=== PATIENT | male | born 1955 | race Caucasian/White ===

== ENCOUNTER 2024-05-10 18:30 | Outpatient (CLI) | payer MEDICARE, MEDICAID, SELFPAY ==
[2024-05-10 20:33] LABS: Basophils # 0.1 K/mm3 (0-0.2); Basophils % 0.8 % (0.1-2.0); Chloride 103 mmol/L (98-107); Eosinophils # 0.4 K/mm3 (0.0-0.4); Eosinophils % 4.8 % (0.1-12.0); Hematocrit 46.8 % (42.0-52.0); Hemoglobin 14.7 g/dL (14.1-18.0); Lymphocytes # 2.8 K/mm3 (0.7-4.5); Lymphocytes % 34.5 % (10-50); Mean Corpuscular HGB Conc 31.3 g/dL (31.8-35.4); Mean Corpuscular Hemoglobin 30.9 pg (27.0-31.2); Mean Corpuscular Volume 98.7 fl (80-94); Mean Platelet Volume 8.5 fl (7.4-10.4); Monocytes # 0.7 K/mm3 (0.1-1.0); Monocytes % 8.6 % (1.7-9.3); Neutrophils # 4.1 K/mm3 (1.8-7.8); Neutrophils % 51.2 % (37.0-80.0); Platelet Count 238 K/mm3 (142-424); Potassium 4.5 mmoL/L (3.5-5.1); Red Blood Count 4.74 M/mm3 (4.60-6.20); Red Cell Distribution Width 14.5 % (11.5-17.5); Sodium 141 mmol/L (136-145)
[2024-05-10 20:35] LABS: Blood Urea Nitrogen 29 mg/dl (9-20); Estimated Glomerular Filt Rate 60 ml/min (>60); GFR (African American) 73 ML/MIN (>60)
[2024-05-10 20:36] LABS: Anion Gap 8.5 mEq/L (5-15); Calcium 8.8 mg/dl (8.4-10.2); Carbon Dioxide 34 mmol/L (22.0-30.0); Glucose 62 mg/dl (74-100)
== END 2024-05-10 23:59 | disposition home or self-care (01) ==
LOC: LAB.DROPOF 18:40
PROVIDERS: PCP Internal Medicine Adolescent Medicine; Visit Provider Nurse Practitioner Family
DX: J96.11 Chronic respiratory failure with hypoxia (principal)
CPT/HCPCS: 80048; 85025

== ENCOUNTER 2024-06-25 01:22 | Emergency (ER) | payer MEDICARE, MEDICAID, SELFPAY ==
[2024-06-25] VITALS (7 sets, daily range): BP systolic 105–146; BP diastolic 44–84; PULSE 59–73; RESP 16; TEMP 36.5–36.6; O2SAT 98–100; BMI 27.1
--- NOTE | 2024-06-25 01:26 | CT_ITS ---
PROCEDURE INFORMATION: Exam: CT Cervical Spine Without Contrast Exam date and time: 06/25/2024 2:03 AM Age: 69 years old Clinical indication: Injury or trauma; Fall; Additional info: Fall struck head TECHNIQUE: Imaging protocol: Computed tomography of the cervical spine without contrast. Radiation optimization: All CT scans at this facility use at least one of these dose optimization techniques: automated exposure control; mA and/or kV adjustment per patient size (includes targeted exams where dose is matched to clinical indication); or iterative reconstruction. COMPARISON: CT HEAD/BRAIN WO CON 06/25/2024 2:01 AM FINDINGS: Bones: Chronic decreased disc space height demonstrated at the C5-C7 levels. Facet hypertrophy [id number] at C2-C4 Lungs: Lung apices are normal. Soft tissues: Unremarkable. IMPRESSION: No visible acute fracture/malalignment.
--- NOTE | 2024-06-25 01:26 | CT_ITS ---
PROCEDURE INFORMATION: Exam: CT Head Without Contrast Exam date and time: 06/25/2024 2:01 AM Age: 69 years old Clinical indication: Injury or trauma; Fall; Additional info: Fall, struck head TECHNIQUE: Imaging protocol: Computed tomography of the head without contrast. Radiation optimization: All CT scans at this facility use at least one of these dose optimization techniques: automated exposure control; mA and/or kV adjustment per patient size (includes targeted exams where dose is matched to clinical indication); or iterative reconstruction. COMPARISON: No relevant prior studies available. FINDINGS: Brain: Old lacunar pattern infarct present right basal ganglia and right caudate head. Old Left basal ganglia lacunar pattern infarct Cerebral ventricles: Periventricular hypoattenuation. Likely chronic microvascular ischemic demyelination. Paranasal sinuses: Mild diffuse thickening of the right maxillary sinus mucosa. Mastoid air cells: Visualized mastoid air cells are well aerated. Orbital cavities: Bilateral lens replacement Bones: Unremarkable. No acute fracture. Soft tissues: Unremarkable. IMPRESSION: No visible acute intracranial abnormality
--- NOTE | 2024-06-25 01:27 | HMH.EDGENADL ---
Discharge Plan Disposition Patient Disposition: Home, Self-Care Condition: Good Prescriptions Prescriptions: No Action furosemide 40 mg tablet 40 mg PO DAILY ipratropium-albuterol 0.5 mg-3 mg(2.5 mg base)/3 mL solution for nebulization 3 ml INHALATION TIDP PRN (Reason: soa) ondansetron HCl 4 mg tablet 4 mg PO Q8HP PRN (Reason: Nausea And Vomiting) famotidine 40 mg tablet 40 mg PO DAILY olanzapine 10 mg tablet 10 mg PO DAILY oxcarbazepine 300 mg tablet 300 mg PO BID divalproex 500 mg tablet,delayed release (DR/EC) 500 mg PO BID potassium chloride 20 mEq tablet,ER particles/crystals 20 meq PO DAILY benztropine 2 mg tablet 2 mg PO BID metoprolol succinate 25 mg tablet extended release 24 hr 25 mg PO DAILY polyethylene glycol 3350 17 gram/dose powder 17 g PO DAILY albuterol sulfate 90 mcg/actuation HFA aerosol inhaler 1 - 2 puff INHALATION Q6HP PRN (Reason: soa) fluticasone propionate 50 mcg/actuation spray,suspension 1 spray INTRANASAL DAILY loratadine 10 mg tablet 10 mg PO DAILY melatonin 5 mg tablet 5 mg PO HS Activity Restrictions/Add. Instructions Additional Instructions/Restrictions: You were evaluated in the ER and are appropriate for discharge at this time. Make an appointment with primary care doctor for reevaluation in a few days. Continue all home medications as previously prescribed. Return to the ER with new, worsening, or otherwise concerning symptoms Clinical Impressions Clinical Impression: Fall Print Language Print Language: Gambian Discharge ED Provider: Joe Coates General Adult HPI General Chief complaint: Fall Stated complaint: Fall Time Seen by Provider: 06/25/24 01:25 Mode of Arrival: EMS Source of Information: Patient and EMS Limitations: No Limitations Description of Symptoms (Recalled from ER Triage Doc. by RN): Pt to ED via EMS with c/o falling out of bed at [facility]. Pt reports left eye pain and right side pain. No blood thinners, no LOC, PERRLA. History of Present Illness HPI narrative: 69-year-old male presents from [facility] with EMS after rolling out of bed striking his face reportedly on the nightstand, however patient states he struck it on the ground. Patient denies losing consciousness, he does not take any blood thinners. Patient reports no neck pain. He states the left side of his head hurts where he hit it, however he has no other complaints at this time. He states his vision is at baseline, he previously had cataract removal. He does states that his left eye feels uncomfortable, especially just above the eye where it hit. Patient is on his home oxygen saturating well, ROS otherwise negative. C-collar in place from EMS. Reports no numbness, tingling, or weakness. Related Data Home Medications ?Medication ?Instructions ?Recorded ?Confirmed albuterol sulfate 90 mcg/actuation 1 - 2 puff inhalation Q6HP PRN soa 06/25/24 06/25/24 aerosol inhaler benztropine 2 mg tablet 2 mg PO BID 06/25/24 06/25/24 divalproex 500 mg tablet,delayed 500 mg PO BID 06/25/24 06/25/24 release famotidine 40 mg tablet 40 mg PO DAILY 06/25/24 06/25/24 fluticasone propionate 50 1 spray intranasal DAILY 06/25/24 06/25/24 mcg/actuation nasal spray,suspension furosemide 40 mg tablet 40 mg PO DAILY 06/25/24 06/25/24 ipratropium 0.5 mg-albuterol 3 mg 3 ml inhalation TIDP PRN soa 06/25/24 06/25/24 (2.5 mg base)/3 mL nebulization soln loratadine 10 mg tablet 10 mg PO DAILY 06/25/24 06/25/24 melatonin 5 mg tablet 5 mg PO HS 06/25/24 06/25/24 metoprolol succinate 25 mg 25 mg PO DAILY 06/25/24 06/25/24 tablet,extended release 24 hr olanzapine 10 mg tablet 10 mg PO DAILY 06/25/24 06/25/24 ondansetron HCl 4 mg tablet 4 mg PO Q8HP PRN Nausea And 06/25/24 06/25/24 Vomiting oxcarbazepine 300 mg tablet 300 mg PO BID 06/25/24 06/25/24 polyethylene glycol 3350 17 17 g PO DAILY 06/25/24 06/25/24 gram/dose oral powder potassium chloride 20 mEq 20 meq PO DAILY 06/25/24 06/25/24 tablet,extended release(part/cryst) Allergies Allergy/AdvReac Type Severity Reaction Status Date / Time No Known Allergies Allergy Verified 06/25/24 01:20 [facility] Disclaimer: The information contained in this section may have been updated after the patient was seen, as this information can be updated by other users. Social History Smoking Status: Former smoker alcohol intake: never current occupational status: other Travel in the last 8 weeks: None ROS Obtained: Yes All systems reviewed & no additional complaints except as documented Positive ROS per HPI Physical Exam General General appearance: alert and in no apparent distress Head Head exam: normocephalic and other (Tenderness on left eyebrow and left forehead without hematoma, abrasion, laceration, or other findings of injury) Eye Eye exam: Present PERRL, EOMI and other (Patient reports vision at baseline in both eyes, no peripheral visual deficits, fluorescein stain without findings of ulcer, abrasion, negative Betty sign, no findings of open globe, right eye pressure 12 mmHg, left eye pressure 12 mmHg) ENT ENT exam: Present mucous membranes moist Neck Neck exam: Present normal inspection and other (C-collar in place); Absent tenderness (No midline C-spine tenderness) Chest Chest inspection: Present symmetric chest wall rise; Absent tenderness Respiratory Respiratory exam: Present normal lung sounds bilaterally; Absent respiratory distress, wheezes or stridor Cardiovascular Cardiovascular exam: Present regular rate and normal rhythm Abdominal Exam Abdominal exam: Present soft; Absent distention or tenderness Extremities Exam Extremities exam: Present full ROM and edema (+1 peripheral edema in bilateral lower extremities) Neurological Exam Neurological exam: Present alert, oriented X3 and CN II-XII intact; Absent motor sensory deficit Psychiatric Psychiatric exam: Present normal affect and normal mood Skin Skin exam: Present warm and dry Medical Decision Making Medical Records Screening: Per USPSTF and CDC recommendations, given the prevalence of disease in our region, it is our hospital?s policy to screen for HIV and viral Hepatitis for all patients aged 18 and over and those with ongoing risk factors. [place] Inquiry Pt receiving controlled substance: No Vital Signs: 06/25/24 01:15 06/25/24 01:31 06/25/24 02:25 Temperature 97.7 F Temperature Source Oral Pulse Rate 64 67 Pulse Rate [Left Radial] 68 Respiratory Rate 16 Blood Pressure 134/70 123/76 Blood Pressure [Right Arm] 140/65 Blood Pressure Mean [Right Arm] 90 Blood Pressure Source [Right Arm] Automatic Cuff Blood Pressure Position [Right Arm] Supine 02 Sat by Pulse Oximetry 100 98 98 Oxygen Delivery Method Nasal Cannula Oxygen Flow Rate (LPM) 4 06/25/24 03:00 06/25/24 03:31 06/25/24 04:00 Temperature Temperature Source Pulse Rate 65 59 L 65 Pulse Rate [Left Radial] Respiratory Rate Blood Pressure 133/76 105/44 L 113/59 L Blood Pressure [Right Arm] Blood Pressure Mean [Right Arm] Blood Pressure Source [Right Arm] Blood Pressure Position [Right Arm] 02 Sat by Pulse Oximetry 99 100 99 Oxygen Delivery Method Oxygen Flow Rate (LPM) Orders (Tests/Meds): ED MEDICATIONS Discontinued Medications Generic Name Dose Route Start Last Admin Trade Name Freq PRN Reason Stop Dose Admin Fluorescein Sodium 1 mg 06/25/24 01:26 06/25/24 01:31 Fluorescein Sodium 1mg Strip OP 06/25/24 01:27 1 mg ONCE ONE Administration Tetracaine HCl 0 ml 06/25/24 01:26 06/25/24 01:30 Tetracaine 0.5% Opth Veronica 15ml OP 06/25/24 01:27 1 ml ONCE ONE Administration ORDERS Category Date Time Status CT cervical spine wo con Stat Cat Scan 06/25/24 01:[address] head/brain wo con Stat Cat Scan 06/25/24 01:26 Completed Medical Decision Narrative: In summary, this 69-year-old male with history of COPD, hypertension, CHF, schizophrenia, all of which are comorbidities of his current condition and increases overall morbidity presents to the emergency department today with fall out of bed striking his head, no loss of consciousness, no blood thinners. On initial evaluation patient is hemodynamically stable, afebrile, GCS 15, no focal neurologic deficits, and only abnormality identified on exam is mild tenderness to palpation of the left eyebrow and left forehead without hematoma, abrasion, laceration, or other findings of injury. No cervical spine tenderness however c-collar is in place, thorough examination of the left eye is benign and reassuring. Differential diagnosis includes but is not limited to skull fracture, intracranial bleed, C-spine injury, these cannot be ruled out with any scoring tools due to patient's age. I had also considered the possibility of corneal abrasion, open globe since patient was complaining of left eye pain, however on exam it appears to be left eyebrow pain and his left eye exam is benign. Based on these concerns, I ordered CT imaging head, C-spine. CT imaging personally interpreted does not demonstrate acute traumatic injury, there are degenerative changes of the C-spine. See radiology reads for final interpretations. On reassessment, patient continues to be stable, he is resting comfortably. C-collar was cleared. He is appropriate for discharge. Patient was given instructions on symptomatic management, follow up instructions, and return precautions for the emergency department. All instructions were also conveyed to nursing facility. Patient indicated understanding and was discharged in stable condition. Critical Care Critical Care Time Critical Care Time: No
[2024-06-25] MEDS: TETRACAINE 0.5% OPTH SOL 15ML OP (01:30)
[2024-06-25] MEDS: FLUORESCEIN SODIUM 1MG STRIP 1 MG OP (01:31)
--- NOTE | 2024-06-25 02:05 | PC.NURSE ---
pt back from ct scans
--- NOTE | 2024-06-25 04:54 | PC.NURSE ---
Report called to Jailyn alston [place]
== END 2024-06-25 05:10 | disposition home or self-care (01) ==
PROVIDERS: Emergency Provider Emergency Medicine; PCP Internal Medicine Adolescent Medicine
DX: H57.11 Ocular pain, right eye (principal); R51.9 Headache, unspecified; R10.31 Right lower quadrant pain; W06.XXXA Fall from bed, initial encounter; Y93.89 Activity, other specified; Y92.122 Bedroom in nursing home as the place of occurrence of the external cause
CPT/HCPCS: 70450; 72125; 99284

== ENCOUNTER 2024-09-03 13:10 | Outpatient (CLI) | payer MEDICARE, MEDICAID, SELFPAY ==
[2024-09-03 13:20] LABS: Microscopic, Urine URINE MICROSCOPIC (MICROSCOPIC)
[2024-09-03 13:26] LABS: Basophils # 0.1 K/mm3 (0-0.2); Basophils % 0.7 % (0.1-2.0); Eosinophils # 0.5 K/mm3 (0.0-0.4); Eosinophils % 6.2 % (0.1-12.0); Hematocrit 43.4 % (42.0-52.0); Hemoglobin 14.4 g/dL (14.1-18.0); Lymphocytes # 2.1 K/mm3 (0.7-4.5); Lymphocytes % 28.7 % (10-50); Mean Corpuscular HGB Conc 33.2 g/dL (31.8-35.4); Mean Corpuscular Hemoglobin 30.5 pg (27.0-31.2); Mean Corpuscular Volume 91.9 fl (80-94); Mean Platelet Volume 9.4 fl (7.4-10.4); Monocytes # 0.7 K/mm3 (0.1-1.0); Monocytes % 9.3 % (1.7-9.3); Neutrophils % 54.7 % (37.0-80.0); Platelet Count 231 K/mm3 (142-424); Red Blood Count 4.72 M/mm3 (4.60-6.20); Red Cell Distribution Width 13.1 % (11.5-17.5); White Blood Count 7.3 K/mm3 (4.8-10.8)
[2024-09-03 13:51] LABS: Appearance,Urine CLEAR (Clear); Bilirubin,Urine Negative (Negative); Blood, Urine TRACE-I (Negative); Color,Urine YELLOW (Yellow); Glucose,Urine (UA) Negative (Negative); Ketones,Urine Negative (Negative); Leukocyte Esterase,Urine Negative (Negative); Nitrate,Urine Negative (Negative); Protein,Urine Negative (Negative); Specific Gravity, Urine 1.015 (1.005-1.030); Urobilinogen,Urine 0.2 EU/dl (0.2)
[2024-09-03 14:08] LABS: Anion Gap 9.7 mEq/L (5-15); Blood Urea Nitrogen 21 mg/dl (9-20); Calcium 9.2 mg/dl (8.4-10.2); Carbon Dioxide 31 mmol/L (22.0-30.0); Chloride 100 mmol/L (98-107); Estimated Glomerular Filt Rate 66 ml/min (>60); GFR (African American) 80 ML/MIN (>60); Glucose 116 mg/dl (74-100); Magnesium 1.6 mg/dl (1.6-2.3); Potassium 5.7 mmoL/L (3.5-5.1); Sodium 135 mmol/L (136-145)
[2024-09-03 14:28] LABS: Bacteria,Urine Trace /lpf; RBC,Urine Occasional #/hpf (0-3)
== END 2024-09-03 23:59 | disposition home or self-care (01) ==
LOC: LAB 13:11
PROVIDERS: Nurse Practitioner Family; PCP Internal Medicine Adolescent Medicine; Visit Provider Internal Medicine Adolescent Medicine
DX: R26.81 Unsteadiness on feet (principal); M54.50 Low back pain, unspecified
CPT/HCPCS: 80048; 81001; 83735; 85025

== ENCOUNTER 2024-10-26 04:50 | Inpatient (IN) | payer MEDICARE, MEDICAID, SELFPAY ==
[2024-10-26] VITALS (13 sets, daily range): BP systolic 125–151; BP diastolic 75–91; PULSE 83–109; RESP 16–22; TEMP 36.6–37.8; O2SAT 94–99; BMI 26.3
--- NOTE | 2024-10-26 04:41 | CT_ITS ---
PROCEDURE INFORMATION: Exam: CT Cervical Spine Without Contrast Exam date and time: 10/26/2024 5:27 AM Age: 69 years old Clinical indication: Injury or trauma; Fall TECHNIQUE: Imaging protocol: Computed tomography of the cervical spine without contrast. Radiation optimization: All CT scans at this facility use at least one of these dose optimization techniques: automated exposure control; mA and/or kV adjustment per patient size (includes targeted exams where dose is matched to clinical indication); or iterative reconstruction. COMPARISON: CT CERVICAL SPINE WO CON 06/25/2024 2:03 AM FINDINGS: Bones: Diffuse cervical spondylosis is noted. Hypertrophic changes of the facet present bilaterally. Discs/Spinal canal/Neural foramina: Narrowing of multiple intervertebral disc spaces are seen. Moderate neural foraminal narrowing is also noted. Lungs: Lung apices are normal. Vasculature: No obvious traumatic injury is seen. Soft tissues: Unremarkable. IMPRESSION: 1. No evidence of acute traumatic injury. 2. Diffuse cervical spondylosis.
--- NOTE | 2024-10-26 04:41 | CT_ITS ---
PROCEDURE INFORMATION: Exam: CT Head Without Contrast Exam date and time: 10/26/2024 5:25 AM Age: 69 years old Clinical indication: Injury or trauma; Fall TECHNIQUE: Imaging protocol: Computed tomography of the head without contrast. Radiation optimization: All CT scans at this facility use at least one of these dose optimization techniques: automated exposure control; mA and/or kV adjustment per patient size (includes targeted exams where dose is matched to clinical indication); or iterative reconstruction. COMPARISON: CT HEAD/BRAIN WO CON 06/25/2024 2:01 AM FINDINGS: Brain: There is diffuse prominence of the cerebral sulci, cisterns, and ventricles consistent with atrophy. No intra or extra-axial fluid collections are noted. No mass or mass effect is seen. Periventricular white matter hypoattenuation is seen consistent with chronic small vessel disease. Cerebral ventricles: No ventriculomegaly. Paranasal sinuses: Visualized sinuses are unremarkable. No fluid levels. Mastoid air cells: Visualized mastoid air cells are well aerated. Bones: Unremarkable. No acute fracture. Soft tissues: Unremarkable. IMPRESSION: No acute process noted.
--- NOTE | 2024-10-26 04:49 | XR_ITS ---
PROCEDURE INFORMATION: Exam: XR Left Hip Exam date and time: 10/26/2024 5:11 AM Age: 69 years old Clinical indication: Hip pain; Left hip; Additional info: Fall pain but full rom TECHNIQUE: Imaging protocol: Radiologic exam of the left hip. Views: 2 or 3 views hip with pelvis when performed. COMPARISON: No relevant prior studies available. FINDINGS: Bones/joints: No acute fracture or malalignment. No worrisome lytic or blastic osseous lesion. No appreciable cortical erosion or periosteal reaction. Mild left hip osteoarthritis. Soft tissues: No appreciable radiopaque foreign body or gas. IMPRESSION: No acute fracture or malaligment.
--- NOTE | 2024-10-26 04:49 | XR_ITS ---
PROCEDURE INFORMATION: Exam: XR Chest Exam date and time: 10/26/2024 5:11 AM Age: 69 years old Clinical indication: Shortness of breath; Additional info: Cov+ light headed fall TECHNIQUE: Imaging protocol: Radiologic exam of the chest. Views: 1 view. COMPARISON: CT CERVICAL SPINE WO CON 06/25/2024 2:03 AM FINDINGS: Lungs: Mild subsegmental atelectasis versus scarring in the left perihilar lung, right mid and lower lungs. No focal consolidation. Pleural spaces: No pneumothorax or pleural effusion. Heart/Mediastinum: Apparent mild cardiomegaly, accentuated by leftward rotation. Mediastinal contours unremarkable. Bones/joints: Unremarkable. IMPRESSION: 1. Scattered scarring and/or subsegmental atelectasis. No focal consolidation. 2. Mild cardiomegaly.
--- NOTE | 2024-10-26 04:49 | XR_ITS ---
PROCEDURE INFORMATION: Exam: XR Left Knee Exam date and time: 10/26/2024 5:11 AM Age: 69 years old Clinical indication: Pain; Knee; Left; Additional info: Fall pain but full rom TECHNIQUE: Imaging protocol: Radiologic exam of the left knee. Views: 3 views. COMPARISON: No relevant prior studies available. FINDINGS: Bones/joints: No acute fracture or malalignment. No worrisome lytic or blastic osseous lesion. No appreciable cortical erosion or periosteal reaction. Joint spaces are preserved. Soft tissues: Moderate medial knee soft tissue swelling. No appreciable gas. A 3 mm linear foreign body projects in the posteromedial soft tissues of the knee. IMPRESSION: 1. No acute fracture or malaligment. 2. Moderate medial knee soft tissue swelling. No appreciable gas. 3. A 3 mm linear foreign body projects in the posteromedial soft tissues of the knee.
--- NOTE | 2024-10-26 04:56 | HMH.EDGENADL ---
Discharge Plan Disposition Patient Disposition: Admitted Chief Complaint: Fall Prescriptions Prescriptions: No Action furosemide 40 mg tablet 40 mg PO DAILY ipratropium-albuterol 0.5 mg-3 mg(2.5 mg base)/3 mL solution for nebulization 3 ml INHALATION TIDP PRN (Reason: soa) ondansetron HCl 4 mg tablet 4 mg PO Q8HP PRN (Reason: Nausea And Vomiting) famotidine 40 mg tablet 40 mg PO DAILY olanzapine 10 mg tablet 10 mg PO DAILY oxcarbazepine 300 mg tablet 300 mg PO BID divalproex 500 mg tablet,delayed release (DR/EC) 500 mg PO BID potassium chloride 20 mEq tablet,ER particles/crystals 20 meq PO DAILY benztropine 2 mg tablet 2 mg PO BID metoprolol succinate 25 mg tablet extended release 24 hr 25 mg PO DAILY polyethylene glycol 3350 17 gram/dose powder 17 g PO DAILY albuterol sulfate 90 mcg/actuation HFA aerosol inhaler 1 - 2 puff INHALATION Q6HP PRN (Reason: soa) fluticasone propionate 50 mcg/actuation spray,suspension 1 spray INTRANASAL DAILY loratadine 10 mg tablet 10 mg PO DAILY melatonin 5 mg tablet 5 mg PO HS Referrals Follow up/Referrals: Provider,Referral, MD [Primary Care Provider] - See instructions Clinical Impressions Clinical Impression: Fall, Pre-syncope, COVID-19, ADAM (acute kidney injury) Print Language Print Language: Dutch Discharge ED Provider: Joe Coates General Adult HPI General Chief complaint: Fall Stated complaint: Fall Time Seen by Provider: 10/26/24 04:55 Mode of Arrival: EMS Source of Information: Patient and EMS Limitations: Physical Limitations Description of Symptoms (Recalled from ER Triage Doc. by RN): PT ARRIVED VIA EMS FROM [facility] FOR C/O L SIDED HIP/KNEE PAIN S/P FALL. PT REPORTS ATTEMPTING TO GET OUT OF BED WHEN PT BECAME DIZZY AND FELL. DENIES HITTING HIS HEAD, - LOC, SKIN INTACT, NO OBVIOUS DEFORMITY NOTED. History of Present Illness HPI narrative: 69-year-old male with history of schizoaffective disorder, COPD, multiple falls presents to the ER from [facility] via EMS for complaints of left hip and left knee pain after fall. Patient reports he was sitting on the side of the bed when he became lightheaded and fell. He denies hitting his head, no loss of consciousness, did not fully syncopize. Facility reports he was positive for COVID yesterday, patient reports no chest pain, no difficulty breathing, he only complains of left knee and hip pain though he was found laying on his right side. Patient denies any chest pain before the fall or any other associated symptoms. He states he often gets lightheaded and dizzy when he tries to get up too fast. He denies any fevers or chills, states he has not had any significant cough or congestion. Review of records from long term demonstrates he has advanced COPD and he reports he wears 2 to 3 L nasal cannula at baseline. No headache, neck pain, back pain, abdominal pain, numbness, tingling, weakness, nausea, vomiting, or other associated symptoms. Related Data Home Medications ?Medication ?Instructions ?Recorded ?Confirmed albuterol sulfate 90 mcg/actuation 1 - 2 puff inhalation Q6HP PRN soa 06/25/24 06/25/24 aerosol inhaler benztropine 2 mg tablet 2 mg PO BID 06/25/24 06/25/24 divalproex 500 mg tablet,delayed 500 mg PO BID 06/25/24 06/25/24 release famotidine 40 mg tablet 40 mg PO DAILY 06/25/24 06/25/24 fluticasone propionate 50 1 spray intranasal DAILY 06/25/24 06/25/24 mcg/actuation nasal spray,suspension furosemide 40 mg tablet 40 mg PO DAILY 06/25/24 06/25/24 ipratropium 0.5 mg-albuterol 3 mg 3 ml inhalation TIDP PRN soa 06/25/24 06/25/24 (2.5 mg base)/3 mL nebulization soln loratadine 10 mg tablet 10 mg PO DAILY 06/25/24 06/25/24 melatonin 5 mg tablet 5 mg PO HS 06/25/24 06/25/24 metoprolol succinate 25 mg 25 mg PO DAILY 06/25/24 06/25/24 tablet,extended release 24 hr olanzapine 10 mg tablet 10 mg PO DAILY 06/25/24 06/25/24 ondansetron HCl 4 mg tablet 4 mg PO Q8HP PRN Nausea And 06/25/24 06/25/24 Vomiting oxcarbazepine 300 mg tablet 300 mg PO BID 06/25/24 06/25/24 polyethylene glycol 3350 17 17 g PO DAILY 06/25/24 06/25/24 gram/dose oral powder potassium chloride 20 mEq 20 meq PO DAILY 06/25/24 06/25/24 tablet,extended release(part/cryst) Allergies Allergy/AdvReac Type Severity Reaction Status Date / Time No Known Allergies Allergy Verified 06/25/24 01:20 [facility] Disclaimer: The information contained in this section may have been updated after the patient was seen, as this information can be updated by other users. Social History Smoking Status: Former smoker alcohol intake: never current occupational status: other Travel in the last 8 weeks: None ROS Obtained: Yes Systems reviewed as appropriate & no additional complaints except as documented per HPI Physical Exam General General appearance: alert and in no apparent distress Head Head exam: atraumatic and normocephalic Eye Eye exam: Present PERRL and EOMI ENT ENT exam: Present mucous membranes moist Neck Neck exam: Present normal inspection, full ROM and other (C-collar applied after arrival in the ER); Absent tenderness Chest Chest inspection: Present symmetric chest wall rise; Absent tenderness Respiratory Respiratory exam: Present normal lung sounds bilaterally; Absent respiratory distress, wheezes or stridor Cardiovascular Cardiovascular exam: Present regular rate and normal rhythm Abdominal Exam Abdominal exam: Present soft; Absent distention, tenderness, guarding or rebound Extremities Exam Extremities exam: Present full ROM, tenderness (Mild tenderness to palpation of the left hip, left knee) and other (Mild ecchymosis on the left knee but no tenderness, range of motion full, no deformity, neurovascularly intact throughout; pelvis stable ); Absent edema, joint swelling or calf tenderness Back Exam Back exam: Absent tenderness Neurological Exam Neurological exam: Present alert, oriented X3 and CN II-XII intact; Absent motor sensory deficit Psychiatric Psychiatric exam: Present normal affect and normal mood Skin Skin exam: Present warm and dry Medical Decision Making Medical Records Medical records reviewed: Yes I reviewed the patient's medical records. Screening: Per USPSTF and CDC recommendations, given the prevalence of disease in our region, it is our hospital?s policy to screen for HIV and viral Hepatitis for all patients aged 18 and over and those with ongoing risk factors. MR Comment: Patient had labs in September which I reviewed, he had hyperkalemia at that time with potassium 5.7. He had unremarkable CBC and UA at that time [facility] Inquiry Pt receiving controlled substance: No Vital Signs: 10/26/24 04:49 10/26/24 05:06 Temperature 98.7 F Temperature Source Oral Pulse Rate 89 Pulse Rate [Apical] 97 H Respiratory Rate 22 Blood Pressure 125/86 Blood Pressure [Right Arm] 131/86 Blood Pressure Mean [Right Arm] 101 02 Sat by Pulse Oximetry 98 99 Oxygen Delivery Method Nasal Cannula Nasal Cannula Oxygen Flow Rate (LPM) 3 3 Lab Data Lab Results 10/26/24 05:04: WBC 11.3 H, RBC 4.77, Hgb 14.5, Hct 44.2, MCV 92.7, MCH 30.4, MCHC 32.8, RDW 14.2, Plt Count 219, MPV 9.7, Neut % (Auto) 75.5, Lymph % (Auto) 8.9 L, [place] % (Auto) 13.4 H, Eos % (Auto) 1.4, Baso % (Auto) 0.4, Neut # (Auto) 8.5 H, Lymph # (Auto) 1.0, [place] # (Auto) 1.5 H, Eos # (Auto) 0.2, Baso # (Auto) 0.1, Sodium 141, Potassium 4.1, Chloride 97 L, Carbon Dioxide 35 H, Anion Gap 13.1, BUN 25 H, Creatinine 1.40 H, Estimated Creat Clear 60, Estimated GFR 50 L, Est GFR ( Amer) 61, Glucose 109 H, Calcium 9.2, Total Bilirubin 0.6, AST 24, ALT 18, Alkaline Phosphatase 79, Total Protein 7.8, Albumin 4.6, Globulin 3.2, Albumin/Globulin Ratio 1.4 10/26/24 05:10: VBG pH 7.42 H, VBG pCO2 47.8, VBG pO2 52.3 H, VBG HCO3 30.6 H, VBG Total CO2 32.1 H, VBG O2 Saturation 86.8 H, VBG Base Excess 6.2 H, VBG Lactic Acid 1.5 10/26/24 05:04 10/26/24 05:04 Orders (Tests/Meds): ED MEDICATIONS Discontinued Medications Generic Name Dose Route Start Last Admin Trade Name Freq PRN Reason Stop Dose Admin Lactated Ringer's 1,000 mls @ 999 mls/hr 10/26/24 04:52 10/26/24 04:57 Lactated Ringer's 1000 Ml Bag IV 10/26/24 05:52 999 mls/hr .Q1H1M ONE Administration ORDERS Category Date Time Status CT cervical spine wo con Stat Cat Scan 10/26/24 04:[address] head/brain wo con Stat Cat Scan 10/26/24 04:41 Completed CXR --portable [XR chest portable] Stat Exams 10/26/24 04:49 Taken Hip XR left minimum 2 views [XR hip LT 2-3V w/pelvis] Exams 10/26/24 04:49 Taken Stat Knee XR left 3 views [XR knee LT 3V] Stat Exams 10/26/24 04:49 Taken CBC w/Auto Diff [Complete Blood Count Auto Diff] Stat Lab 10/26/24 05:04 Completed CMP [Comprehensive Metabolic Panel] Stat Lab 10/26/24 05:04 Completed VBG [Venous Blood Gas] Stat RT 10/26/24 05:10 Completed Medical Decision Narrative: In summary, this 69-year-old male presents to the emergency department today with concerns of low mechanism of energy fall preceded by lightheadedness. On initial evaluation patient is hemodynamically stable, afebrile, saturating in the upper 90s on his home oxygen, exam notable for slight ecchymosis over the left knee without swelling, mild tenderness, also mild tenderness of left hip, however patient has full range of motion of both of these joints, he has no tenderness of the neck or spine, no tenderness of the chest or abdomen, no other complaints or evidence of injury. Neurologically intact, cardiopulmonary exam reassuring. Differential diagnosis includes but is not limited to intracranial bleed, skull fracture, C-spine fracture cannot be ruled out by Nexus or Ivorian criteria, also considered fracture or dislocation, with patient's lightheadedness I considered pneumonia, hypercarbia, arrhythmia, electrolyte abnormality, orthostatic hypotension, among others. Previous labs have demonstrated electrolyte abnormalities and prerenal azotemia. Based on these concerns, I ordered serum labs, cardiac workup, chest x-ray, CT imaging of the head and neck, x-ray imaging of left lower extremity. ECG personally interpreted demonstrates normal sinus rhythm, rate 89, normal axis, normal VT and QTc, no STEMI. Patient received IV fluids for treatment. Labs personally reviewed demonstrate mild leukocytosis WBC 11.3, no anemia, WBC is likely elevated due to patient having COVID, VBG with pH 7.42, no evidence of hypercarbia, VBG lactic normal at 1.5, CMP with no actionable electrolyte abnormalities, patient does have evidence of new kidney dysfunction with BUN 25, creatinine 1.4, patient has previously had evidence of prerenal azotemia but has baseline creatinine is 1.1, his BUN to creatinine ratio today is more concerning for intrarenal dysfunction, he is already receiving IV fluids. Chest x-ray personally interpreted demonstrates evidence of COPD, possible right lower/middle lobe changes which are likely related to his known COVID. I personally interpreted hip/pelvis and knee x-ray as well and do not appreciate evidence of acute osseous injury. See radiology reads for final interpretations. CT head personally turbid it does not demonstrate acute intracranial abnormality, CT C-spine is without acute traumatic injury. See radiology reads for final interpretations. C-collar cleared by me. No midline pain or tenderness, no neurodeficits. Based on my personal interpretation of the radiology studies, I contacted the hospitalist for admission for ADAM. We discussed the patient's findings clinically and on imaging as well as his lab results. Patient was graciously excepted to the hospitalist service for admission and admitted in stable condition. Critical Care Critical Care Time Critical Care Time: No
[2024-10-26] MEDS: LACTATED RINGERS 1000ML 1,000 ML 999 ML IV (04:57)
--- NOTE | 2024-10-26 05:07 | ECG_ITS ---
APPROVED REPORT Exam: Resting ECG HR:89 bpm ECG Measurements Heart Rate 89 AXES ME 189 P 81 QRSd 82 QRS 81 QT 336 T 86 QTc 383 Conclusion SINUS RHYTHM NORMAL ECG Electronically signed by : GUERRERO QUINN, 10/26/2024 06:46:12
--- NOTE | 2024-10-26 05:10 | PC.NURSE ---
respiratory contacted and made aware of VBG that has been sent to the lab.
--- NOTE | 2024-10-26 05:10 | PC.NURSE ---
pt placed in c-collar per provider during intial assesment, orthostatic VS to be done once C-spine is clear per CT scans.
[2024-10-26 05:14] LABS: Lactate Venous 1.5 mmol/L (0.4-2.0); VBG Base Excess 6.2 mmol/L (-2.4-2.3); VBG HCO3 30.6 mmol/L (23-30); VBG Oxygen Saturation 86.8 % (50-70); VBG PCO2 47.8 mmol/L (35-51); VBG PH 7.42 mmol/L (7.31-7.41); VBG PO2 52.3 mmol/L (28-40); VBG Total CO2 32.1 mmol/L (23-27)
[2024-10-26 05:14] LABS: Basophils # 0.1 K/mm3 (0-0.2); Basophils % 0.4 % (0.1-2.0); Eosinophils # 0.2 K/mm3 (0.0-0.4); Eosinophils % 1.4 % (0.1-12.0); Hematocrit 44.2 % (42.0-52.0); Hemoglobin 14.5 g/dL (14.1-18.0); Lymphocytes % 8.9 % (10-50); Mean Corpuscular HGB Conc 32.8 g/dL (31.8-35.4); Mean Corpuscular Hemoglobin 30.4 pg (27.0-31.2); Mean Corpuscular Volume 92.7 fl (80-94); Mean Platelet Volume 9.7 fl (7.4-10.4); Monocytes # 1.5 K/mm3 (0.1-1.0); Monocytes % 13.4 % (1.7-9.3); Neutrophils # 8.5 K/mm3 (1.8-7.8); Neutrophils % 75.5 % (37.0-80.0); Platelet Count 219 K/mm3 (142-424); Red Blood Count 4.77 M/mm3 (4.60-6.20); Red Cell Distribution Width 14.2 % (11.5-17.5); White Blood Count 11.3 K/mm3 (4.8-10.8)
[2024-10-26 05:20] LABS: Albumin Level 4.6 g/dl (3.5-5.0); Chloride 97 mmol/L (98-107); Potassium 4.1 mmoL/L (3.5-5.1); Sodium 141 mmol/L (136-145)
[2024-10-26 05:23] LABS: Alanine Aminotransferase 18 U/L (12-78); Albumin/Globulin Ratio 1.4 (1.1-1.8); Alkaline Phosphatase 79 U/L (38-126); Anion Gap 13.1 mEq/L (5-15); Aspartate Amino Transferase 24 U/L (17-59); Bilirubin,Total 0.6 mg/dl (0.2-1.3); Blood Urea Nitrogen 25 mg/dl (9-20); Calcium 9.2 mg/dl (8.4-10.2); Carbon Dioxide 35 mmol/L (22.0-30.0); Creatinine Clearance Estimated 60 mL/min (50-200); Estimated Glomerular Filt Rate 50 ml/min (>60); GFR (African American) 61 ML/MIN (>60); Globulin 3.2 g/dL (1.3-3.2); Glucose 109 mg/dl (74-100); Total Protein,Serum 7.8 g/dl (6.3-8.2)
--- NOTE | 2024-10-26 05:31 | PC.NURSE ---
pt returned from CT scan.
--- NOTE | 2024-10-26 05:34 | PC.NURSE ---
C-Collar removed by provider. CMS intact.
--- NOTE | 2024-10-26 06:37 | PC.NURSE ---
Madelaine will call for report after shift change.
[2024-10-26 06:43] LABS: Coronavirus 19, PCR Not Detected (NotDetected); Influenza A, PCR Not Detected (NotDetected); Influenza B, PCR Not Detected (NotDetected)
--- NOTE | 2024-10-26 07:52 | PC.NURSE ---
arrived by w/c from ED
--- NOTE | 2024-10-26 08:07 | SW/DCPLANNER ---
Addendum entered by Tiff Miller 10/28/24 10:38: I have updated Moni carrillo/ Grand [facility]omin that this patient will return today. Addendum entered by Tiff Miller 10/26/24 11:11: I have updated Moni carrillo/ Grand Momin that this patient will return today. Original Note: This patient currently resides at [facility] level of care. I will continue to update Moni carrillo/ Grand Momin during patient's hospital admission. Discharge date is unknown at this time.
[2024-10-26] MEDS: LACTATED RINGERS 1000ML 1,000 ML 50 ML IV (08:29)
--- NOTE | 2024-10-26 09:39 | P.CONPHA_ITS ---
Pharmacy Intervention Comments: MEDICATION RECONCILIATION COMPLETE USING MAR FROM [facility].
--- NOTE | 2024-10-26 09:39 | HMH.PHAINT1 ---
Pharmacy Intervention Comments: MEDICATION RECONCILIATION COMPLETE USING MAR FROM [facility].
[2024-10-26 09:52] LABS: Thyroid Stimulating Hormone 0.35 uIU/mL (0.465-4.68)
--- NOTE | 2024-10-26 10:17 | HMH.OTEV ---
OT Inpatient Evaluation Rehab OT IP Evaluation Start: 10/26/24 07:36 Freq: ONCE Status: Active Protocol: Document 10/26/24 10:12 [facility] (Rec: 10/26/24 10:17 [facility] [id number]) Rehab OT IP Assessment Subjective History Pt oriented x 2 on arrival. Pt agreeable to engage in therapy evaluation. Pt admitted on 10/26/24 due to a fall at [facility]. History and physical: 69-year-old male with history of schizoaffective disorder, COPD, multiple falls presents to the ER from [facility] via EMS for complaints of left hip and left knee pain after fall. Patient reports he was sitting on the side of the bed when he became lightheaded and fell . He denies hitting his head, no loss of consciousness, did not fully syncopize. Facility reports he was positive for COVID yesterday, patient reports no chest pain, no difficulty breathing, he only complains of left knee and hip pain though he was found laying on his right side . Patient denies any chest pain before the fall or any other associated symptoms. He states he often gets lightheaded and dizzy when he tries to get up too fast. He denies any fevers or chills, states he has not had any significant cough or congestion. Review of records from [facility] demonstrates he has advanced COPD and he reports he wears 2 to 3 L nasal cannula at baseline. No headache, neck pain, back pain, abdominal pain, numbness, tingling, weakness, nausea, vomiting, or other associated symptoms Subjective I am not doing good right now . Pt reports prior to being in the hospital, pt was living at [facility]. Pt claims normally he is independent with dressing, bathing, and feeding. However , he is dependent on staff for completion of IADLs. He normally uses a wheelchair for functional transfers but claims to be independent to transfer to and from wheelchair. Pt appeared to be slightly confused at times therefore information provided may not be trustworthy. Objective Patient Orientation Person,Place,Birthday Right Upper Extremity Gross ROM Min Limitation <25% Left Upper Extremity Gross ROM Min Limitation <25% Shoulder ROM Limitations Muscle Weakness Elbow ROM Limitations Muscle Weakness Wrist Limitations of Range of Motion Muscle Weakness Chair Transfer Ability Moderate x 1 (50% assist) Chair Transfer Technique Stand Pivot Rehab OT IP prob,goals,plan Problems Date of Evaluation: 10/26/24 OT IP Problems Bed Mobility,Transfers,Balance ,Self care,Safety Rehab Potential Rehab Potential Good Equipment Needs Assistive Devices Rolling / Wheeled Walker Plan OT intervention Plan Bed Mobility,Transfers,Balance ,Self care,Safety,Therapeutic Exercise OT Plan Frequency Daily Duration LOS Discharge Goals Bed Mobility Ability Standby Assistance Sit to Stand Chair Transfer Ability Minimal x 1 (25% assist) Chair Transfer Ability Minimal x 1 (25% assist) Chair Transfer Technique Sit to/from Ambulatory Chair Transfer Assistive Devices Rolling Walker Feeding Ability Assist with Tray Set Up Lower Body Dressing Ability Minimal Assistance Upper Body Dressing Ability Standby Assistance Bathing Ability Moderate Assistance Performing Toilet Hygiene Ability Moderate Assistance Overall Commode/Toilet Transfer Ability Minimal Assistance Commode/Toilet Transfer Technique Stand Pivot Discharge Plan OT Discharge Plan Pt will continue to be seen for OT services while at [facility]. Pt can return back to [facility] for termite helper placement once he is medically stable per physician . Eval Complexity Eval Charge Codes 82217 - Moderate Complexity PHYSICIAN CERTIFICATION: I certify the specified therapy services for Devin Pierre are required, authorized, and reviewed every 30 days.
--- NOTE | 2024-10-26 11:10 | HMH.PTEV ---
Physical Therapy Evaluation Rehab PT IP Evaluation Start: 10/26/24 07:36 Freq: ONCE Status: Active Protocol: Document 10/26/24 11:06 [facility] (Rec: 10/26/24 11:10 [facility] [id number]) Subjective/History History History 69-year-old male with history of schizoaffective disorder, COPD, multiple falls presents to the ER from [facility] via EMS for complaints of left hip and left knee pain after fall. Patient reports he was sitting on the side of the bed when he became lightheaded and fell . He denies hitting his head, no loss of consciousness. He reports he generally uses a w/ c for mobility and O2 via NC at 2L/min at all times at baseline. He reports He feels shaky when standing often, but is unsure why. Subjective Subjective He reports no c/o pain at this time and agrees to mobility assessment this am. Rehab PT IP Eval Objective Appearance Patient Behavior Appropriate Patient Orientation Person,Place,Time Difficulty following instructions none Speech Pattern Clear Ambulation Patient Able to Ambulate No Balance Ability to Arise Able, uses arms to help Sitting Balance Steady, safe Standing Balance Unsteady Dynamic Sitting Balance Ability Fair Dynamic Standing Balance Ability Poor Transfers Bed Transfer Ability Supervision/Stand by Chair Transfer Ability Minimal x 1 (25% assist) Sit to Stand Bed Transfer Ability Minimal x 1 (25% assist) Sit to Stand Chair Transfer Ability Minimal x 1 (25% assist) ROM All Extremities PT ROM Status WFL MMT All Extremities PT MMT WFL Rehab PT IP prob,goals,plan Problems Date of Evaluation: 10/26/24 PT IP Problems Transfers,Gait Rehab Potential Rehab Potential Good Plan PT Intervention Plan Transfers,Gait,Therapeutic Exercise Duration LOS Discharge Goals Bed Transfer Ability Independent Sit to Stand Chair Transfer Ability Contact Guard/Hand Hold Discharge Plan PT Discharge Plan Pt is currently most appropriate to return to his prior facility once medically stable for d/c. Skilled inpatient therapy services are indicated to improve transfers in order to aid pt return to [facility]. Eval Complexity Eval Charge Codes 71086 - High Complexity PHYSICIAN CERTIFICATION: I certify the specified therapy services for Devin Pierre are required, authorized, and reviewed every 30 days.
[2024-10-26] MEDS: FAMOTIDINE 20MG TABLET 40 MG PO (11:37)
[2024-10-26 12:15] LABS: Chloride 97 mmol/L (98-107); Sodium 139 mmol/L (136-145)
[2024-10-26 12:19] LABS: Blood Urea Nitrogen 22 mg/dl (9-20); Calcium 9.1 mg/dl (8.4-10.2); Carbon Dioxide 36 mmol/L (22.0-30.0); Creatinine Clearance Estimated 70 mL/min (50-200); Estimated Glomerular Filt Rate 60 ml/min (>60); GFR (African American) 73 ML/MIN (>60); Glucose 106 mg/dl (74-100)
[2024-10-26 12:29] LABS: Microscopic, Urine URINE MICROSCOPIC (MICROSCOPIC)
[2024-10-26 12:32] LABS: Appearance,Urine CLEAR (Clear); Bilirubin,Urine Negative (Negative); Blood, Urine 1+ (Negative); Color,Urine YELLOW (Yellow); Glucose,Urine (UA) Negative (Negative); Ketones,Urine 1+ (Negative); Leukocyte Esterase,Urine Negative (Negative); Nitrate,Urine Negative (Negative); Protein,Urine Negative (Negative); Specific Gravity, Urine 1.015 (1.005-1.030); Urobilinogen,Urine 0.2 EU/dl (0.2)
[2024-10-26 12:47] LABS: Bacteria,Urine Trace /lpf; Squamous Epithelial Cell,Urine Occasional #/hpf (0-5)
[2024-10-26] MEDS: predniSONE 20MG TAB 40 MG PO (15:31)
[2024-10-26] MEDS: AZITHROMYCIN 500 MG in 0.9 % SODIUM CHLORIDE 250 ML 250 MG IV (15:31)
--- NOTE | 2024-10-26 16:35 | PC.NURSE ---
Multiple attempts made at obtaining orthostatics today. Patient is unable to stand still long enough and keep his arm straight for blood pressure reading. aware.
[2024-10-26] MEDS: IPRATROPIUM/ALBUTEROL 3 ML NEB IH ×2 (18:13→23:06)
[2024-10-26] MEDS: BUDESONIDE 0.5MG/2ML NEB 0.5 MG IH (18:13)
--- NOTE | 2024-10-26 18:15 | P.HP_ITS ---
History of Present Illness *History of present illness: Devin Pierre is a 69-year-old male who presents from nursing facility after f eeling dizzy and falling on his left hip, and admitted for the same. He apparently tested positive for COVID-19 at the facility, but negative here. He notes he has been having dyspnea on exertion for the past 2 years which has gradually become worse. He states over the past few months he has not been able to take a few steps without significant increased work of breathing. Denies any cardiac history, has quit smoking many years ago. Case discussed with ED provider and decision was made to admit patient for fall, COPD exacerbation, weakness, ADAM. [facility] Disclaimer: The information contained in this section may have been updated after the patient was seen, as this information can be updated by other users. Medical History (Updated 11/04/24 @ 15:52 by MAXIME Ray) COPD (chronic obstructive pulmonary disease) COPD exacerbation Pancreatitis GERD (gastroesophageal reflux disease) Rhinitis CHF (congestive heart failure) Hypertension Insomnia Bipolar disorder Schizo affective schizophrenia Weakness Fatigue Respiratory failure with hypoxia Social History Smoking Status: Former smoker alcohol intake: never current occupational status: other Travel in the last 8 weeks: None Other Medical History Have you received the Flu Vaccine for this season: No Have you received the Pneumonia Vaccine: No Meds Home Medications and Allergies Home Medications ?Medication ?Instructions ?Recorded ?Confirmed ?Type albuterol sulfate 90 mcg/actuation 2 puff inhalation Q6HP PRN 06/25/24 11/04/24 History aerosol inhaler Shortness Of Breath Or Wheezing divalproex 500 mg tablet,delayed 500 mg PO BID 06/25/24 11/04/24 History release metoprolol succinate 25 mg 25 mg PO DAILY 06/25/24 11/04/24 History tablet,extended release 24 hr oxcarbazepine 300 mg tablet 300 mg PO BID 06/25/24 11/04/24 History polyethylene glycol 3350 17 17 g PO DAILY 06/25/24 11/04/24 History gram/dose oral powder acetaminophen 500 mg tablet 1,000 mg PO Q6HP PRN Fever Or Pain 10/26/24 11/04/24 History aluminum hydrox-magnesium carb 95 30 ml PO Q6HP PRN Indigestion 10/26/24 11/04/24 History mg-358 mg/15 mL oral suspension (Acid Gone Antacid) amantadine HCl 100 mg tablet 100 mg PO BID 10/26/24 11/04/24 History lactulose 10 gram/15 mL oral 20 g PO DAILYP PRN Constipation 10/26/24 11/04/24 History solution olanzapine 15 mg tablet 15 mg PO HS 10/26/24 11/04/24 History potassium chloride 10 mEq 10 meq PO DAILY 10/26/24 11/04/24 History tablet,extended release(part/cryst) fluticasone fur. 200 mcg-umeclid 1 inh inhalation DAILY 30 days #60 10/28/24 11/04/24 Rx 62.5 mcg-vilant 25 mcg ea inhalat.powder (Trelegy Ellipta) buspirone 5 mg tablet 5 mg PO TID 11/04/24 11/04/24 History New Prescriptions to Start Prescriptions: [id number] [Trelegy Ellipta] Conrad Lozada Allergies Allergy/AdvReac Type Severity Reaction Status Date / Time No Known Allergies Allergy Verified 11/04/24 13:50 Exam Data for Last 24 hours Vital signs and Labs for Last 24 Hours: Temp Pulse Resp BP Pulse Ox O2 Del Method O2 Flow Rate 100.0 F H 109 H 20 140/91 H 94 L Nasal Cannula 3 10/26/24 16:00 10/26/24 16:00 10/26/24 16:00 10/26/24 16:00 10/26/24 16:00 10/26/24 17:00 10/26/24 17:00 Laboratory Results - last 24 hr 10/26/24 05:04: WBC 11.3 H, RBC 4.77, Hgb 14.5, Hct 44.2, MCV 92.7, MCH 30.4, MCHC 32.8, RDW 14.2, Plt Count 219, MPV 9.7, Neut % (Auto) 75.5, Lymph % (Auto) 8.9 L, [place] % (Auto) 13.4 H, Eos % (Auto) 1.4, Baso % (Auto) 0.4, Neut # (Auto) 8.5 H, Lymph # (Auto) 1.0, [place] # (Auto) 1.5 H, Eos # (Auto) 0.2, Baso # (Auto) 0.1, Sodium 141, Potassium 4.1, Chloride 97 L, Carbon Dioxide 35 H, Anion Gap 13.1, BUN 25 H, Creatinine 1.40 H, Estimated Creat Clear 60, Estimated GFR 50 L, Est GFR ( Amer) 61, Glucose 109 H, Calcium 9.2, Total Bilirubin 0.6, AST 24, ALT 18, Alkaline Phosphatase 79, Total Protein 7.8, Albumin 4.6, Globulin 3.2, Albumin/Globulin Ratio 1.4, TSH 0.35 L 10/26/24 05:10: VBG pH 7.42 H, VBG pCO2 47.8, VBG pO2 52.3 H, VBG HCO3 30.6 H, VBG Total CO2 32.1 H, VBG O2 Saturation 86.8 H, VBG Base Excess 6.2 H, VBG Lactic Acid 1.5 10/26/24 06:39: SARS-CoV-2 (PCR) Not detected, Influenza A Untype (PCR) Not detected, Influenza Type B (PCR) Not detected 10/26/24 12:00: Sodium 139, Potassium 4.0, Chloride 97 L, Carbon Dioxide 36 H, Anion Gap 10.0, BUN 22 H, Creatinine 1.20, Estimated Creat Clear 70, Estimated GFR 60, Est GFR ( Amer) 73, Glucose 106 H, Calcium 9.1 10/26/24 12:25: Urine Color Yellow, Urine Appearance Clear, Urine pH 8.0, Ur Specific [place] 1.015, Urine Protein Negative, Urine Glucose (UA) Negative, Urine Ketones 1+, Urine Blood 1+ A, Urine Nitrate Negative, Urine Bilirubin Negative, Urine Urobilinogen 0.2, Ur Leukocyte Esterase Negative, Urine RBC 5- 10, Urine WBC None, Ur Squamous Epith Cells Occasional, Urine Bacteria Trace I & O for Last 24 hours: Intake & Output 10/23/24 10/24/24 10/25/24 10/26/24 23:59 23:59 23:59 23:59 Intake Total 240 / 240 Output Total 350 / 350 Balance -110 / -110 Weight 85.729 kg Constitutional Constitutional: no acute distress *Routine HEENT Exam Head: Present normocephalic Eye: Present EOMI and PERRL ENT: Present mucous membranes moist *Routine Neck Exam Neck: Present supple; Absent lymphadenopathy *Routine Respiratory Exam Respiratory: Present wheezes; Absent CTA bilaterally *Routine Cardiovascular Exam Cardiovascular: Present RRR *Routine Abdominal Exam Abdominal: Present soft and normoactive bowel sounds; Absent tenderness *Routine Rectal Exam Rectal:: deferred *Routine Genitalia Exam Genitalia:: deferred *Routine Extremities Exam Extremities: Absent cyanosis, clubbing or edema *Routine Skin Exam Skin: Present warm; Absent rash *Routine Neurological Exam Neurological: Present alert and oriented X3 Assessment and Plan *Assessment and plan (1) COPD (chronic obstructive pulmonary disease): Status: Acute Qualifiers: COPD type: emphysema Emphysema type: unspecified Qualified Code(s): J43.9 - Emphysema, unspecified Category: Medical Code(s): J44.9 - Chronic obstructive pulmonary disease, unspecified Plan Devin Pierre is a 69-year-old male who presents from nursing facility after feeling dizzy and falling on his left hip, and admitted for the same. He apparently tested positive for COVID-19 at the facility, but negative here. He notes he has been having dyspnea on exertion for the past 2 years which has gradually become worse. He states over the past few months he has not been able to take a few steps without significant increased work of breathing. Denies any cardiac history, has quit smoking many years ago. Case discussed with ED provider and decision was made to admit patient for fall, COPD exacerbation, weakness, ADAM. #Fall ? Seems to be associated with dizziness, acute viral syndrome, dehydration, positive orthostatics. ? Hip, knee x-rays did not show acute findings. ? PT/OT consulted, pending final recommendations. #Acute COPD exacerbation ? Started DuoNebs, Pulmicort, steroids. ? VBG reassuring. Baseline 3 L nasal cannula. #Acute viral syndrome #Dehydration #Dizziness #ADAM ? Mini respiratory panel negative here, follow-up with full respiratory panel. ? Positive orthostatics in the ED. ? Initial creatinine 1.4, baseline 1.1. Improved with IV fluids. ? Continue with IV, oral rehydration. ? Repeat orthostatic vitals tomorrow. Full code DVT prophylaxis: Lovenox 40 mg
[2024-10-27] VITALS (9 sets, daily range): BP systolic 120–151; BP diastolic 57–81; PULSE 85–112; RESP 16–19; TEMP 36.5–36.9; O2SAT 90–98; BMI 27.1
[2024-10-27] MEDS: LACTATED RINGERS 1000ML 1,000 ML 50 ML IV ×3 (03:21→20:55)
[2024-10-27 04:48] LABS: Adenovirus,PCR Not Detected (NotDetected); Bordetella Pertussis Not Detected (NotDetected); Chlamydophila Pneumoniae, PCR Not Detected (NotDetected); Coronavirus 19, PCR Not Detected (NotDetected); Coronavirus 229E Not Detected (NotDetected); Coronavirus NL63 Not Detected (NotDetected); Coronavirus OC43 Not Detected (NotDetected); Coronovirus HKU1,PCR Not Detected (NotDetected); Human Metapneumovirus Not Detected (NotDetected); Influenza A, PCR Not Detected (NotDetected); Influenza AH1, 2009 Not Detected (NotDetected); Influenza AH1, PCR Not Detected (NotDetected); Influenza AH3,PCR Not Detected (NotDetected); Influenza B, PCR Not Detected (NotDetected); Mycoplasma Pneumoniae, PCR Not Detected (NotDetected); Parainfluenza 1, PCR Not Detected (NotDetected); Parainfluenza 2, PCR Not Detected (NotDetected); Parainfluenza 3, PCR Not Detected (NotDetected); Parainfluenza 4, PCR Not Detected (NotDetected); Respiratory Syncytial Virus Not Detected (NotDetected); Rhinovirus/Enterovirus Not Detected (NotDetected)
--- NOTE | 2024-10-27 04:55 | PC.NURSE ---
Pt is only alert to self and place at times. Disoriented to time and situation. Patient is a high fall risk as he's not stable on his feet and shakes frequently. Pt stated he's scared to stand. Pt has been going from 3 to 4LNC all shift. Pt gets exerted and anxious. he stated, He thinks he wet the bed then gets worked up and becomes SOB. Plan of care ongoing.
[2024-10-27] MEDS: IPRATROPIUM/ALBUTEROL 3 ML NEB IH ×2 (06:00→10:37)
[2024-10-27] MEDS: BUDESONIDE 0.5MG/2ML NEB 0.5 MG IH ×2 (06:00→18:12)
[2024-10-27 06:14] LABS: Basophils % 0.4 % (0.1-2.0); Eosinophils # 0.1 K/mm3 (0.0-0.4); Eosinophils % 0.7 % (0.1-12.0); Hematocrit 40.3 % (42.0-52.0); Hemoglobin 13.4 g/dL (14.1-18.0); Lymphocytes # 0.9 K/mm3 (0.7-4.5); Lymphocytes % 7.6 % (10-50); Mean Corpuscular HGB Conc 33.3 g/dL (31.8-35.4); Mean Corpuscular Hemoglobin 30.6 pg (27.0-31.2); Mean Platelet Volume 9.6 fl (7.4-10.4); Monocytes # 1.3 K/mm3 (0.1-1.0); Monocytes % 11.3 % (1.7-9.3); Neutrophils % 79.6 % (37.0-80.0); Platelet Count 181 K/mm3 (142-424); Red Blood Count 4.38 M/mm3 (4.60-6.20); Red Cell Distribution Width 13.9 % (11.5-17.5); White Blood Count 11.3 K/mm3 (4.8-10.8)
[2024-10-27 06:48] LABS: Chloride 101 mmol/L (98-107); Potassium 4.1 mmoL/L (3.5-5.1); Sodium 138 mmol/L (136-145)
[2024-10-27 06:51] LABS: Anion Gap 10.1 mEq/L (5-15); Blood Urea Nitrogen 21 mg/dl (9-20); Calcium 8.4 mg/dl (8.4-10.2); Carbon Dioxide 31 mmol/L (22.0-30.0); Creatinine Clearance Estimated 79 mL/min (50-200); Estimated Glomerular Filt Rate 66 ml/min (>60); GFR (African American) 80 ML/MIN (>60); Glucose 104 mg/dl (74-100)
[2024-10-27] MEDS: predniSONE 20MG TAB 40 MG PO (08:40)
[2024-10-27 09:05] LABS: Free T4 (Free Thyroxine) 1.37 ng/dl (0.78-2.19)
--- NOTE | 2024-10-27 09:33 | PC.NURSE ---
Purewick was placed on patient for safety concerns due to patient being extremely SOB, shaky and anxious when getting up to side of bed to use the urinal. patient agreed to purewick being placed.
--- NOTE | 2024-10-27 10:38 | CA_ITS ---
APPROVED REPORT EXAM: Comprehensive 2D, Doppler, and color-flow Echocardiogram Delivery Truck Driver: LALITO Tena, RVS Ht: 5 ft 11 in Wt: 193lbs BSA: 2.08 BP: 140/91 mmHg Indications: COVID, COPD, HTN, Ex-smoker, ADAM, Weakness,Schizophrenia Echo Enhancing Agent Indication: Endocardial border delineation Agent(s) / Amount(s) Used: Optison 2 cc Comments: Technically limited windows due to lung impedance 2D Dimensions IVSd 0.83 cm M: 0.6-1.2 LVEF (Visual) 82.00 % PWd 0.83 cm M: 0.6 - 1.2 LA Volume 44.10 mL LVDd 4.62 cm M: 4.2 - 5.9 LA Volume Index 21.20 mL/m2 (M/F) 16-34 LVDs 2.28 cm M: 2.5 - 4.0 EF AP4 70.40 % Aortic Root 2.14 cm M: 3.1 - 3.7 GL Strain -17.5 % Left Atrium 3.34 cm M: 3.0 - 4.0 RVID Base (AP4) 3.40 cm (M/F) 2.5-4.1 LVOT 1.70 cm (M/F) 1.5-2.5 M-Mode Dimensions LVDd 4.62 cm (3.5-5.7) Ao Diam 2.44 cm (2.0-3.7) LVDs 2.28 cm (3.5-5.7) IVSd 0.83 cm (0.6-1.1) PWd 0.83 cm (0.6-1.1) EPSs 0.57 cm FS 50.60% TAPSE 2.30 (<1.7) LV Diastology E Decel Time 267 (160-240 msec) E/A Ratio 0.7 MED E' 6.8 (>= 7 cm/sec) MED A' 15.10 cm/s E'/MED E' Ratio 12.63 (<= 14) LAT E' 12.6 (>= 10 cm/sec) LAT A' 15.20 cm/s E/LAT E' Ratio 6.82 (<= 14) Aortic Valve LVOT Max 107.0 (70-110 cm/s) JACINDA Index 1.02 cm2/m2 LVOT VTI 21.52 cm AoV Peak Jack. 148.0 (50-130 cm/s) AO Mean GR. 4.30 (<5 mmHg) AO VTI 22.9 (18-25 cm) JACINDA (VTI) 2.13 (2.5-4.5 cm2) Mitral Valve MV E Max Jack. 86.0 (40-130 cm/s) MV A Velocity 118.0 (40-130 cm/s) E/A Ratio 0.73 MV Decel. Time 267 (160-240 ms) Left Ventricle The left ventricle is normal size. The left ventricular systolic function is normal. The left ventricular ejection fraction is within the normal range. There is increased LV wall thickness. There is normal LV segmental wall motion. Transmitral Doppler flow pattern suggests impaired LV relaxation. No left ventricle thrombus noted on this study. LVEF is 60-65%. Right Ventricle The right ventricle is normal size. The right ventricular systolic function is normal. Atria The left atrium size is normal. The right atrium size is normal. There is no Doppler evidence of interatrial shunt. Aortic Valve The aortic valve opens well. There is no aortic valvular stenosis. No aortic regurgitation is present. Mitral Valve The mitral valve is normal in structure. No evidence of mitral valve stenosis. There is no mitral valve regurgitation noted. Tricuspid Valve Tricuspid valve is grossly normal in structure and function. Trace tricuspid regurgitation. There is insufficient TR jet to estimate RVSP. Pulmonic Valve The pulmonary valve is normal in structure. Trace pulmonic regurgitation. Great Vessels The aortic root is normal in size. IVC is normal in size and collapses >50% with inspiration. Pericardium There is no pericardial effusion. Other Information Study Quality: Technically Difficult Conclusion Technically diffficult study due to poor accoustic windows. Normal biventricular systolic function. No significant valvular stenosis or regurgitation. Electronically signed by : Thu Victoria MD 10/28/2024 12:39:10
--- NOTE | 2024-10-27 10:39 | CT_ITS ---
FINAL REPORT TECHNIQUE: Postcontrast axial images of the chest were performed in a CTA protocol. This study was performed with techniques to keep radiation doses as low as reasonably achievable, (ALARA). Individualized dose reduction technique using automated exposure control or adjustment of mA and/or kV according to the patient's size were employed. CLINICAL HISTORY: hypoxia, SOB FINDINGS: The heart is normal in size. No adenopathy is identified. No pleural or pericardial effusion is identified. The thoracic aorta is normal in caliber with no focal aneurysm or dissection identified. There are patchy lower lobe densities suspicious for pneumonia. Coarse linear densities are seen in the left upper lobe which may represent scarring or atelectasis. There is emphysematous change. There is a 9 mm nodule in the anterior right midlung on image 45. Poor opacification limits evaluation of the peripheral vessels. There is no gross central pulmonary embolism. IMPRESSION: Limited assessment of the pulmonary vessels. No gross central PE. Bibasilar pneumonia. Pulmonary nodularity. Recommend CT follow-up in 3 months Reviewed, Interpreted and Dictated by Joelle Quan MD Transcribed by Alix Cavazos Authenticated and [facility]
[2024-10-27] MEDS: DEFINITY US ECHO CONTRAST 2ML INJ 2 MG IV (11:26)
[2024-10-27] MEDS: 0.9 % SODIUM CHLORIDE 50 ML VIAL IV (12:43)
[2024-10-27] MEDS: SODIUM CHLORIDE 0.9% 10ML SYR (RAD ONLY) 10 ML IV (12:43)
[2024-10-27] MEDS: IOPAMIDOL-370 (76%);100ML BOTTLE 85 ML IV (12:43)
[2024-10-27] MEDS: LEVALBUTEROL 1.25MG/3ML NEB 1.25 MG IH ×3 (13:45→22:03)
[2024-10-27] MEDS: IPRATROPIUM BROMIDE 0.5 MG/2.5ML SOLUTION IH ×3 (13:45→22:03)
[2024-10-27 14:08] LABS: Lactate Venous 1.8 mmol/L (0.4-2.0); VBG HCO3 26.4 mmol/L (23-30); VBG Oxygen Saturation 94.8 % (50-70); VBG PCO2 47.5 mmol/L (35-51); VBG PH 7.36 mmol/L (7.31-7.41); VBG PO2 76.4 mmol/L (28-40); VBG Total CO2 27.9 mmol/L (23-27)
[2024-10-27] MEDS: CEFTRIAXONE 1 GM 1 GM in 0.9 % SODIUM CHLORIDE 50 ML IV (16:03)
[2024-10-27] MEDS: METHYLPREDNISOLONE SOD SUCC 40MG VIAL 40 MG IV (20:49)
[2024-10-27] MEDS: DOXYCYCLINE HYCLATE 100 MG in 0.9 % SODIUM CHLORIDE 250 ML 166.667 MG IV (20:53)
--- NOTE | 2024-10-27 21:44 | P.PN_ITS ---
Subjective *Date: 10/28/24 *Time: 12:19 Interval history: Escalated steroids to IV Solu-Medrol 40 mg twice daily, started ceftriaxone and doxycycline for community-acquired pneumonia. Exam Data for Last 24 hours Vital signs and Labs for Last 24 Hours: Temp Pulse Resp BP Pulse Ox O2 Del Method O2 Flow Rate 97.7 F 90 18 120/81 95 Room Air 3 10/27/24 19:46 10/27/24 19:46 10/27/24 19:46 10/27/24 19:46 10/27/24 19:46 10/27/24 19:46 10/27/24 18:29 FiO2 32 10/26/24 18:42 Laboratory Results - last 24 hr 10/27/24 04:44: Chlamy pneumoniae PCR Not detected, Adenovirus (PCR) Not detected, B. pertussis DNA (PCR) Not detected, Coronavirus OC43 (PCR) Not detected, Coronavirus HKU1 (PCR) Not detected, Coronavirus 229E (PCR) Not detected, SARS-CoV-2 (PCR) Not detected, Coronavirus NL63 (PCR) Not detected, Human Metapneumovir PCR Not detected, Influenza A (H1) PCR Not detected, Influ A (H1N1/09) PCR Not detected, Influenza A (H3) PCR Not detected, Influenza Type A (PCR) Not detected, Influenza Type B (PCR) Not detected, M. pneumoniae (PCR) Not detected, Parainfluenza 1 (PCR) Not detected, Parainfluenza 2 (PCR) Not detected, Parainfluenza 3 (PCR) Not detected, Parainfluenza 4 (PCR) Not detected, RSV (PCR) Not detected, Entero/Rhino (PCR) Not detected 10/27/24 05:58: Free T4 1.37 10/27/24 06:00: WBC 11.3 H, RBC 4.38 L, Hgb 13.4 L, Hct 40.3 L, MCV 92.0, MCH 30.6, MCHC 33.3, RDW 13.9, Plt Count 181, MPV 9.6, Neut % (Auto) 79.6, Lymph % (Auto) 7.6 L, [place] % (Auto) 11.3 H, Eos % (Auto) 0.7, Baso % (Auto) 0.4, Neut # (Auto) 9.0 H, Lymph # (Auto) 0.9, [place] # (Auto) 1.3 H, Eos # (Auto) 0.1, Baso # (Auto) 0.0, Sodium 138, Potassium 4.1, Chloride 101, Carbon Dioxide 31 H, Anion Gap 10.1, BUN 21 H, Creatinine 1.10, Estimated Creat Clear 79, Estimated GFR 66, Est GFR ( Amer) 80, Glucose 104 H, Calcium 8.4, Magnesium 2.0 10/27/24 13:45: VBG pH 7.36, VBG pCO2 47.5, VBG pO2 76.4 H, VBG HCO3 26.4, VBG Total CO2 27.9 H, VBG O2 Saturation 94.8 H, VBG Base Excess 1.0, VBG Lactic Acid 1.8 I & O for Last 24 hours: Intake & Output 10/24/24 10/25/24 10/26/24 10/27/24 23:59 23:59 23:59 23:59 Intake Total 828 / 948 960 / 960 Output Total 350 / 350 775 / 775 Balance 478 / 598 185 / 185 Weight 85.729 kg 87.718 kg Constitutional Constitutional: no acute distress *Routine HEENT Exam Head: Present normocephalic Eye: Present EOMI and PERRL ENT: Present mucous membranes moist *Routine Neck Exam Neck: Present supple; Absent lymphadenopathy *Routine Respiratory Exam Respiratory: Present wheezes and diminished air movement; Absent CTA bilaterally *Routine Cardiovascular Exam Cardiovascular: Present RRR *Routine Abdominal Exam Abdominal: Present soft and normoactive bowel sounds; Absent tenderness *Routine Extremities Exam Extremities: Absent cyanosis, clubbing or edema *Routine Skin Exam Skin: Present warm; Absent rash *Routine Neurological Exam Neurological: Present alert and oriented X3 Assessment and Plan *Assessment and plan (1) COPD (chronic obstructive pulmonary disease): Status: Acute Category: Medical Code(s): J44.9 - Chronic obstructive pulmonary disease, unspecified Plan Devin Pierre is a 69-year-old male who presents from nursing facility after feeling dizzy and falling on his left hip, and admitted for the same. He apparently tested positive for COVID-19 at the facility, but negative here. #Fall ? Seems to be associated with dizziness, acute viral syndrome, dehydration, positive orthostatics. ? Hip, knee x-rays did not show acute findings. ? PT/OT consulted, pending final recommendations. #Acute COPD exacerbation ? Continue DuoNebs, Pulmicort. ? Continues to have restricted air movement, wheezing. Transition to IV Solu- Medrol 40 mg twice daily. ? VBG reassuring. Baseline 3 L nasal cannula. #Community-acquired pneumonia ? CTA chest does reveal bibasilar pneumonia. ? Started IV ceftriaxone, doxycycline. Discontinue azithromycin. ? Follow-up sputum culture. #Acute viral syndrome #Dehydration #Dizziness #ADAM ? Mini respiratory panel negative here, follow-up with full respiratory panel. ? Positive orthostatics in the ED. ? Initial creatinine 1.4, baseline 1.1. Improved with IV fluids. ? Continue with IV, oral rehydration. ? Repeat orthostatic vitals tomorrow.
[2024-10-28] VITALS (10 sets, daily range): BP systolic 128–150; BP diastolic 68–82; PULSE 82–112; RESP 16–18; TEMP 36.6–37.1; O2SAT 91–98; BMI 27.9
[2024-10-28] MEDS: LACTATED RINGERS 1000ML 1,000 ML 50 ML IV ×3 (00:28→23:52)
[2024-10-28] MEDS: LEVALBUTEROL 1.25MG/3ML NEB 1.25 MG IH ×6 (02:37→21:34)
[2024-10-28] MEDS: IPRATROPIUM BROMIDE 0.5 MG/2.5ML SOLUTION IH ×6 (02:37→21:34)
--- NOTE | 2024-10-28 04:24 | PC.WOUNDNOTE ---
Pt. is alert and orientated x4. Pt. very SOB when moving around. Oxygen 4 liters per NC in place. Lung sound with inspiratory and expiratory wheezes. Pt. getting Neb treatments q 4 hours. IV fluids infusing. Pt. getting IV antibiotics, Pt. sleeping off and on. Pt. knocks NC off face and sats drop to 86-90. with O2 sats 93-94. Pt. able to speak in full sentences with no increased SOB. Purewick in place and draining well. VSS, personal items and call luo in reach.
[2024-10-28] MEDS: BUDESONIDE 0.5MG/2ML NEB 0.5 MG IH ×2 (06:25→18:09)
[2024-10-28 07:07] LABS: Basophils % 0.5 % (0.1-2.0); Eosinophils # 0.1 K/mm3 (0.0-0.4); Eosinophils % 1.3 % (0.1-12.0); Hematocrit 39.9 % (42.0-52.0); Hemoglobin 13.1 g/dL (14.1-18.0); Lymphocytes # 0.5 K/mm3 (0.7-4.5); Lymphocytes % 5.6 % (10-50); Mean Corpuscular HGB Conc 32.8 g/dL (31.8-35.4); Mean Corpuscular Hemoglobin 30.3 pg (27.0-31.2); Mean Corpuscular Volume 92.4 fl (80-94); Mean Platelet Volume 12.2 fl (7.4-10.4); Monocytes # 0.6 K/mm3 (0.1-1.0); Monocytes % 6.6 % (1.7-9.3); Neutrophils # 7.4 K/mm3 (1.8-7.8); Neutrophils % 85.1 % (37.0-80.0); Platelet Count 133 K/mm3 (142-424); Red Blood Count 4.32 M/mm3 (4.60-6.20); Red Cell Distribution Width 13.8 % (11.5-17.5); White Blood Count 8.7 K/mm3 (4.8-10.8)
[2024-10-28 07:40] LABS: Blood Urea Nitrogen 23 mg/dl (9-20); Calcium 8.5 mg/dl (8.4-10.2); Carbon Dioxide 27 mmol/L (22.0-30.0); Creatinine Clearance Estimated 89 mL/min (50-200); Estimated Glomerular Filt Rate 96 ml/min (>60); GFR (African American) 116 ML/MIN (>60); Glucose 119 mg/dl (74-100); Potassium 4.7 mmoL/L (3.5-5.1)
[2024-10-28 07:49] LABS: Sodium 136 mmol/L (136-145)
[2024-10-28 08:01] LABS: Anion Gap 7.7 mEq/L (5-15); Chloride 106 mmol/L (98-107)
[2024-10-28] MEDS: METHYLPREDNISOLONE SOD SUCC 40MG VIAL 40 MG IV ×2 (08:46→20:41)
[2024-10-28] MEDS: DOXYCYCLINE HYCLATE 100 MG in 0.9 % SODIUM CHLORIDE 250 ML 166.667 MG IV ×2 (08:46→23:44)
[2024-10-28] MEDS: SODIUM CHLORIDE 3% 15ML NEB 3 ML IH (09:02)
--- NOTE | 2024-10-28 11:27 | EXP.DC.SUM ---
General Admission date:: 10/26/24 HPI HPI HPI: Devin Pierre is a 69-year-old male who presents from nursing facility after feeling dizzy and falling on his left hip, and admitted for the same. He apparently tested positive for COVID-19 at the facility, but negative here. #Fall ? Seems to be associated with dizziness, acute viral syndrome, dehydration, positive orthostatics. ? Hip, knee x-rays did not show acute findings. ? PT/OT consulted, pending final recommendations. #Acute COPD exacerbation ? Started DuoNebs, Pulmicort, steroids. ? VBG reassuring. Baseline 3 L nasal cannula. #Acute viral syndrome #Dehydration #Dizziness #ADAM ? Mini respiratory panel negative here, follow-up with full respiratory panel. ? Positive orthostatics in the ED. ? Initial creatinine 1.4, baseline 1.1. Improved with IV fluids. ? Continue with IV, oral rehydration. ? Repeat orthostatic vitals tomorrow. Exam Data for Last 24 hours Vital signs and Labs for Last 24 Hours: Temp Pulse Resp BP Pulse Ox O2 Del Method O2 Flow Rate 98.7 F 93 H 18 133/68 98 Nasal Cannula 4 10/28/24 08:00 10/28/24 09:03 10/28/24 09:03 10/28/24 08:00 10/28/24 09:03 10/28/24 10:17 10/28/24 10:17 FiO2 32 10/26/24 18:42 Laboratory Results - last 24 hr 10/27/24 13:45: VBG pH 7.36, VBG pCO2 47.5, VBG pO2 76.4 H, VBG HCO3 26.4, VBG Total CO2 27.9 H, VBG O2 Saturation 94.8 H, VBG Base Excess 1.0, VBG Lactic Acid 1.8 10/28/24 06:26: WBC 8.7, RBC 4.32 L, Hgb 13.1 L, Hct 39.9 L, MCV 92.4, MCH 30.3, MCHC 32.8, RDW 13.8, Plt Count 133 L D, MPV 12.2 H, Neut % (Auto) 85.1 H, Lymph % (Auto) 5.6 L, [place] % (Auto) 6.6, Eos % (Auto) 1.3, Baso % (Auto) 0.5, Neut # (Auto) 7.4, Lymph # (Auto) 0.5 L, [place] # (Auto) 0.6, Eos # (Auto) 0.1, Baso # (Auto) 0.0, Sodium 136, Potassium 4.7, Chloride 106, Carbon Dioxide 27, Anion Gap 7.7, BUN 23 H, Creatinine 0.80 D, Estimated Creat Clear 89, Estimated GFR 96, Est GFR ( Amer) 116 D, Glucose 119 H, Calcium 8.5 I & O for Last 24 hours: Intake & Output 10/25/24 10/26/24 10/27/24 10/28/24 23:59 23:59 23:59 23:59 Intake Total 828 / 948 960 / 1620 1228 / 1228 Output Total 350 / 350 775 / 1025 700 / 700 Balance 478 / 598 185 / 595 528 / 528 Weight 85.729 kg 87.718 kg 90.446 kg Results Data Completed and Pending Labs on day of discharge: Labs from last 24 hours 10/28/24 10/27/24 06:26 13:45 WBC 8.7 RBC 4.32 L Hgb 13.1 L Hct 39.9 L MCV 92.4 MCH 30.3 MCHC 32.8 RDW 13.8 Plt Count 133 L D MPV 12.2 H Neut % (Auto) 85.1 H Lymph % (Auto) 5.6 L [place] % (Auto) 6.6 Eos % (Auto) 1.3 Baso % (Auto) 0.5 Neut # (Auto) 7.4 Lymph # (Auto) 0.5 L [place] # (Auto) 0.6 Eos # (Auto) 0.1 Baso # (Auto) 0.0 VBG pH 7.36 VBG pCO2 47.5 VBG pO2 76.4 H VBG HCO3 26.4 VBG Total CO2 27.9 H VBG O2 Saturation 94.8 H VBG Base Excess 1.0 VBG Lactic Acid 1.8 Sodium 136 Potassium 4.7 Chloride 106 Carbon Dioxide 27 Anion Gap 7.7 BUN 23 H Creatinine 0.80 D Estimated Creat Clear 89 Estimated GFR 96 Est GFR ( Amer) 116 D Glucose 119 H Calcium 8.5 Meds Home Medications and Allergies Home Medications ?Medication ?Instructions ?Recorded ?Confirmed ?Type albuterol sulfate 90 mcg/actuation 2 puff inhalation Q6HP PRN 06/25/24 10/26/24 History aerosol inhaler Shortness Of Breath Or Wheezing divalproex 500 mg tablet,delayed 500 mg PO BID 06/25/24 10/26/24 History release famotidine 40 mg tablet 40 mg PO DAILY 06/25/24 10/26/24 History fluticasone propionate 50 1 spray intranasal DAILY 06/25/24 10/26/24 History mcg/actuation nasal spray,suspension furosemide 40 mg tablet 40 mg PO DAILY 06/25/24 10/26/24 History ipratropium 0.5 mg-albuterol 3 mg 3 ml inhalation Q6HP PRN Shortness 06/25/24 10/26/24 History (2.5 mg base)/3 mL nebulization Of Breath Or Wheezing soln loratadine 10 mg tablet 10 mg PO DAILY 06/25/24 10/26/24 History melatonin 5 mg tablet 5 mg PO HS 06/25/24 10/26/24 History metoprolol succinate 25 mg 25 mg PO DAILY 06/25/24 10/26/24 History tablet,extended release 24 hr oxcarbazepine 300 mg tablet 300 mg PO BID 06/25/24 10/26/24 History polyethylene glycol 3350 17 17 g PO DAILY 06/25/24 10/26/24 History gram/dose oral powder acetaminophen 500 mg tablet 1,000 mg PO Q6HP PRN Fever Or Pain 10/26/24 10/26/24 History aluminum hydrox-magnesium carb 95 30 ml PO Q6HP PRN Indigestion 10/26/24 10/26/24 History mg-358 mg/15 mL oral suspension (Acid Gone Antacid) amantadine HCl 100 mg tablet 100 mg PO BID 10/26/24 10/26/24 History lactulose 10 gram/15 mL oral 20 g PO DAILYP PRN Constipation 10/26/24 10/26/24 History solution magnesium oxide 400 mg (241.3 mg 400 mg PO DAILY 10/26/24 10/26/24 History magnesium) tablet olanzapine 15 mg tablet 15 mg PO HS 10/26/24 10/26/24 History potassium chloride 10 mEq 10 meq PO DAILY 10/26/24 10/26/24 History tablet,extended release(part/cryst) vibegron 75 mg tablet (Gemtesa) 75 mg PO HS 10/26/24 10/26/24 History fluticasone fur. 200 mcg-umeclid 1 inh inhalation DAILY 30 days #60 10/28/24 Rx 62.5 mcg-vilant 25 mcg ea inhalat.powder (Trelegy Ellipta) New Prescriptions to Start Prescriptions: [id number] [Trelegy Ellipta] Conrad Lozada Allergies Allergy/AdvReac Type Severity Reaction Status Date / Time No Known Allergies Allergy Verified 06/25/24 01:20 Discharge Plan Disposition Patient Disposition: Home, Self-Care Condition: Fair Follow up Plan Prescriptions/Medication Reconciliation: Continued furosemide 40 mg tablet 40 mg PO DAILY ipratropium-albuterol 0.5 mg-3 mg(2.5 mg base)/3 mL solution for nebulization 3 ml INHALATION Q6HP PRN (Reason: Shortness Of Breath Or Wheezing) famotidine 40 mg tablet 40 mg PO DAILY oxcarbazepine 300 mg tablet 300 mg PO BID divalproex 500 mg tablet,delayed release (DR/EC) 500 mg PO BID metoprolol succinate 25 mg tablet extended release 24 hr 25 mg PO DAILY polyethylene glycol 3350 17 gram/dose powder 17 g PO DAILY albuterol sulfate 90 mcg/actuation HFA aerosol inhaler 2 puff INHALATION Q6HP PRN (Reason: Shortness Of Breath Or Wheezing) fluticasone propionate 50 mcg/actuation spray,suspension 1 spray INTRANASAL DAILY loratadine 10 mg tablet 10 mg PO DAILY melatonin 5 mg tablet 5 mg PO HS amantadine HCl 100 mg tablet 100 mg PO BID Acid Gone Antacid 95-358 mg/15 mL suspension 30 ml PO Q6HP PRN (Reason: Indigestion) acetaminophen 500 mg Tablet 1,000 mg PO Q6HP PRN (Reason: Fever Or Pain) magnesium oxide 400 mg (241.3 mg magnesium) tablet 400 mg PO DAILY olanzapine 15 mg tablet 15 mg PO HS potassium chloride 10 mEq tablet,ER particles/crystals 10 meq PO DAILY lactulose 10 gram/15 mL solution 20 g PO DAILYP PRN (Reason: Constipation) Gemtesa 75 mg Tablet 75 mg PO HS Trelegy Ellipta 200-62.5-25 mcg blister with device 1 inh INHALATION DAILY 30 Days Qty: 60 0RF Patient Discharge Instructions Patient Instructions: DI for Chronic Obstructive Pulmonary Disease, DI for COVID-19 (Suspected or Confirmed ) Print Language: Swazi Providers Primary Care Provider: Provider,Referral Admit Provider: Tobi Walker Attending Provider: Tobi Walker
[2024-10-28] MEDS: FUROSEMIDE 40 MG TABLET PO (12:16)
[2024-10-28] MEDS: METOPROLOL SUCCINATE XL 25MG TABLET 25 MG PO (12:16)
[2024-10-28] MEDS: POLYETHYLENE GLYCOL 3350 238GM POWDER 17 GM PO (12:17)
--- NOTE | 2024-10-28 13:39 | EXP.CARD.CON ---
History of Present Illness History of Present Illness Consult date: 10/28/24 Requesting physician: Conrad Lozada Consult reason: shortness of breath Chief complaint: SOA History of present illness: 69-year-old white male without known cardiovascular disease but poorly treated COPD with chronic hypoxic respiratory failure. He resides in a alf facility due to falls and loss of bowel and bladder function. Patient states for several years she has had worsening shortness of breath and chest pain. Recently became so short of breath he cannot clean himself or even get up to a bedside chair and. He is admitted here with bilateral pneumonia noted on CT. We are consulted for evaluation of his shortness of breath and whether any component could be cardiac in etiology. His EKG shows sinus rhythm without ischemia or ectopy. 2D echo here is normal. Patient states he has never had a stress test. He takes no cardiac meds at home. [facility] Disclaimer: The information contained in this section may have been updated after the patient was seen, as this information can be updated by other users. Medical History Pancreatitis GERD (gastroesophageal reflux disease) COPD (chronic obstructive pulmonary disease) Rhinitis CHF (congestive heart failure) Hypertension Insomnia Bipolar disorder Schizo affective schizophrenia Weakness Fatigue Respiratory failure with hypoxia Social History Smoking Status: Former smoker alcohol intake: never current occupational status: other Travel in the last 8 weeks: None Review of Systems Constitutional Constitutional: Reports fatigue and Reports weakness Eyes Eyes: Denies loss of vision ENT Ears, Nose, Mouth, and Throat: Denies hearing loss and Denies vertigo *Cardiovascular Cardiovascular: Reports chest pain, Reports dyspnea and Denies syncope *Respiratory Respiratory: Denies cough and Reports dyspnea *Gastrointestinal Gastrointestinal: Denies change in stool character, Denies nausea and Denies vomiting *Genitourinary Genitourinary: Denies difficulty urinating *Musculoskeletal Musculoskeletal: Denies muscle weakness Integumentary/Breasts Skin/Breast: Denies changing lesions *Neurologic Neurologic: Denies loss of vision, Denies syncope, Denies vertigo and Reports weakness Endocrine Endocrine: Reports fatigue Exam Data for Last 24 hours Vital signs and Labs for Last 24 Hours: Temp Pulse Resp BP Pulse Ox O2 Del Method O2 Flow Rate 98.7 F 93 H 18 133/68 98 Nasal Cannula 2 10/28/24 08:00 10/28/24 09:03 10/28/24 09:03 10/28/24 08:00 10/28/24 09:03 10/28/24 12:25 10/28/24 12:25 FiO2 32 10/26/24 18:42 Laboratory Results - last 24 hr 10/27/24 13:45: VBG pH 7.36, VBG pCO2 47.5, VBG pO2 76.4 H, VBG HCO3 26.4, VBG Total CO2 27.9 H, VBG O2 Saturation 94.8 H, VBG Base Excess 1.0, VBG Lactic Acid 1.8 10/28/24 06:26: WBC 8.7, RBC 4.32 L, Hgb 13.1 L, Hct 39.9 L, MCV 92.4, MCH 30.3, MCHC 32.8, RDW 13.8, Plt Count 133 L D, MPV 12.2 H, Neut % (Auto) 85.1 H, Lymph % (Auto) 5.6 L, [place] % (Auto) 6.6, Eos % (Auto) 1.3, Baso % (Auto) 0.5, Neut # (Auto) 7.4, Lymph # (Auto) 0.5 L, [place] # (Auto) 0.6, Eos # (Auto) 0.1, Baso # (Auto) 0.0, Sodium 136, Potassium 4.7, Chloride 106, Carbon Dioxide 27, Anion Gap 7.7, BUN 23 H, Creatinine 0.80 D, Estimated Creat Clear 89, Estimated GFR 96, Est GFR ( Amer) 116 D, Glucose 119 H, Calcium 8.5 I & O for Last 24 hours: Intake & Output 10/25/24 10/26/24 10/27/24 10/28/24 23:59 23:59 23:59 23:59 Intake Total 828 / 948 960 / 1620 1228 / 1228 Output Total 350 / 350 775 / 1025 875 / 875 Balance 478 / 598 185 / 595 353 / 353 Weight 189 lb 193 lb 6.161 oz 199 lb 6.4 oz Constitutional Constitutional: no acute distress and cooperative *Routine HEENT Exam Eye: Present PERRL Comments: very poor dentition *Routine Respiratory Exam Respiratory: Present accessory muscle use and wheezes; Absent crackles Comments: conversationally winded, reduced breath sounds throughout - worse on left *Routine Cardiovascular Exam Cardiovascular: Present RRR, Normal S1 and Normal S2; Absent murmur, gallop or rubs *Routine Abdominal Exam Abdominal: Present soft; Absent tenderness *Routine Extremities Exam Extremities: Present pulses intact; Absent cyanosis or edema *Routine Skin Exam Skin: Present intact; Absent erythema or wounds *Routine Neurological Exam Neurological: Present alert and oriented X3 Routine Psychiatric Exam Psychiatric: Present cooperative Meds Home Medications and Allergies Home Medications ?Medication ?Instructions ?Recorded ?Confirmed ?Type albuterol sulfate 90 mcg/actuation 2 puff inhalation Q6HP PRN 06/25/24 10/26/24 History aerosol inhaler Shortness Of Breath Or Wheezing divalproex 500 mg tablet,delayed 500 mg PO BID 06/25/24 10/26/24 History release famotidine 40 mg tablet 40 mg PO DAILY 06/25/24 10/26/24 History fluticasone propionate 50 1 spray intranasal DAILY 06/25/24 10/26/24 History mcg/actuation nasal spray,suspension furosemide 40 mg tablet 40 mg PO DAILY 06/25/24 10/26/24 History ipratropium 0.5 mg-albuterol 3 mg 3 ml inhalation Q6HP PRN Shortness 06/25/24 10/26/24 History (2.5 mg base)/3 mL nebulization Of Breath Or Wheezing soln loratadine 10 mg tablet 10 mg PO DAILY 06/25/24 10/26/24 History melatonin 5 mg tablet 5 mg PO HS 06/25/24 10/26/24 History metoprolol succinate 25 mg 25 mg PO DAILY 06/25/24 10/26/24 History tablet,extended release 24 hr oxcarbazepine 300 mg tablet 300 mg PO BID 06/25/24 10/26/24 History polyethylene glycol 3350 17 17 g PO DAILY 06/25/24 10/26/24 History gram/dose oral powder acetaminophen 500 mg tablet 1,000 mg PO Q6HP PRN Fever Or Pain 10/26/24 10/26/24 History aluminum hydrox-magnesium carb 95 30 ml PO Q6HP PRN Indigestion 10/26/24 10/26/24 History mg-358 mg/15 mL oral suspension (Acid Gone Antacid) amantadine HCl 100 mg tablet 100 mg PO BID 10/26/24 10/26/24 History lactulose 10 gram/15 mL oral 20 g PO DAILYP PRN Constipation 10/26/24 10/26/24 History solution magnesium oxide 400 mg (241.3 mg 400 mg PO DAILY 10/26/24 10/26/24 History magnesium) tablet olanzapine 15 mg tablet 15 mg PO HS 10/26/24 10/26/24 History potassium chloride 10 mEq 10 meq PO DAILY 10/26/24 10/26/24 History tablet,extended release(part/cryst) vibegron 75 mg tablet (Gemtesa) 75 mg PO HS 10/26/24 10/26/24 History fluticasone fur. 200 mcg-umeclid 1 inh inhalation DAILY 30 days #60 10/28/24 Rx 62.5 mcg-vilant 25 mcg ea inhalat.powder (Trelegy Ellipta) New Prescriptions to Start Prescriptions: [id number] [Trelegy Ellipta] Conrad Lozada Allergies Allergy/AdvReac Type Severity Reaction Status Date / Time No Known Allergies Allergy Verified 06/25/24 01:20 Assessment and Plan *Assessment and plan (1) Acute on chronic hypoxic respiratory failure: Status: Acute Category: Medical Code(s): J96.21 - Acute and chronic respiratory failure with hypoxia (2) Angina pectoris: Status: Acute Category: Medical Code(s): I20.9 - Angina pectoris, unspecified (3) COPD (chronic obstructive pulmonary disease): Status: Acute Category: Medical Code(s): J44.9 - Chronic obstructive pulmonary disease, unspecified (4) Bilateral pneumonia: Status: Acute Category: Medical Code(s): J18.9 - Pneumonia, unspecified organism Plan Acute on Chronic Hypoxic Respiratory failure - COPD - Bilateral PNA COPD - pt states he only uses Albuterol and O2 at home - severely reduced breath sounds throughout - CT shows emphysema and bilat pna but no PE and no effusions or edema - recommend pulm evaluation Angina Pectoris - MATHIS and mild left chest discomfort for 2 years, worse with activity, better with rest - EKG - SR without ischemia or ectopy - ECHO - Nml Bi-V function, no WMA - Add ASA. Cont BB. - Check Trop and ProBNP - consider OP vs IP Ischemic evaluation.
[2024-10-28 14:37] LABS: NT Pro Brain Natriuretic Pep. 1460 pg/mL (0-125)
[2024-10-28 14:47] LABS: Troponin I < 0.01 ng/ml (0.00-0.034)
--- NOTE | 2024-10-28 15:52 | PC.NURSE ---
Pt is aox 4, up with assistance times 2, short of breath with exertion, bed alarm active, 20g L AC LR @ 50 ML/HR, purewick in place, resides at [facility].
[2024-10-28] MEDS: CEFTRIAXONE 1 GM 1 GM in 0.9 % SODIUM CHLORIDE 50 ML IV (16:14)
--- NOTE | 2024-10-28 17:26 | P.PN_ITS ---
Subjective *Date: 10/28/24 *Time: 17:26 Interval history: Continues to have exercise intolerance, patient states is chronic. But barely able to take a few steps without significant increased work of breathing. Pulmonology and cardiology consulted. Continue breathing treatments, steroids, antibiotics. Exam Data for Last 24 hours Vital signs and Labs for Last 24 Hours: Temp Pulse Resp BP Pulse Ox O2 Del Method O2 Flow Rate 98.7 F 102 H 18 133/68 98 Nasal Cannula 2 10/28/24 08:00 10/28/24 14:38 10/28/24 09:03 10/28/24 08:00 10/28/24 14:38 10/28/24 14:38 10/28/24 14:38 FiO2 32 10/26/24 18:42 Laboratory Results - last 24 hr 10/28/24 06:26: WBC 8.7, RBC 4.32 L, Hgb 13.1 L, Hct 39.9 L, MCV 92.4, MCH 30.3, MCHC 32.8, RDW 13.8, Plt Count 133 L D, MPV 12.2 H, Neut % (Auto) 85.1 H, Lymph % (Auto) 5.6 L, [place] % (Auto) 6.6, Eos % (Auto) 1.3, Baso % (Auto) 0.5, Neut # (Auto) 7.4, Lymph # (Auto) 0.5 L, [place] # (Auto) 0.6, Eos # (Auto) 0.1, Baso # (Auto) 0.0, Sodium 136, Potassium 4.7, Chloride 106, Carbon Dioxide 27, Anion Gap 7.7, BUN 23 H, Creatinine 0.80 D, Estimated Creat Clear 89, Estimated GFR 96, Est GFR ( Amer) 116 D, Glucose 119 H, Calcium 8.5 10/28/24 14:00: Troponin I < 0.01, NT-Pro-B Natriuret Pep 1460 H I & O for Last 24 hours: Intake & Output 10/25/24 10/26/24 10/27/24 10/28/24 23:59 23:59 23:59 23:59 Intake Total 828 / 948 960 / 1620 1558 / 1558 Output Total 350 / 350 775 / 1025 1625 / 1625 Balance 478 / 598 185 / 595 -67 / -67 Weight 85.729 kg 87.718 kg 90.446 kg Constitutional Constitutional: no acute distress *Routine HEENT Exam Head: Present normocephalic Eye: Present EOMI and PERRL ENT: Present mucous membranes moist *Routine Neck Exam Neck: Present supple; Absent lymphadenopathy *Routine Respiratory Exam Respiratory: Present wheezes and diminished air movement; Absent CTA bilaterally *Routine Cardiovascular Exam Cardiovascular: Present RRR *Routine Abdominal Exam Abdominal: Present soft and normoactive bowel sounds; Absent tenderness *Routine Extremities Exam Extremities: Absent cyanosis, clubbing or edema *Routine Skin Exam Skin: Present warm; Absent rash *Routine Neurological Exam Neurological: Present alert and oriented X3 Assessment and Plan *Assessment and plan (1) COPD (chronic obstructive pulmonary disease): Status: Acute Category: Medical Code(s): J44.9 - Chronic obstructive pulmonary disease, unspecified Plan Devin Pierre is a 69-year-old male who presents from nursing facility after feeling dizzy and falling on his left hip, and admitted for the same. He apparently tested positive for COVID-19 at the facility, but negative here. He notes he has been having dyspnea on exertion for the past 2 years which has gradually become worse. He states over the past few months he has not been able to take a few steps without significant increased work of breathing. Denies any cardiac history, has quit smoking many years ago. #Dyspnea on exertion, exercise intolerance #COPD exacerbation ? Longstanding issue of dyspnea on exertion, progressively worse over the past few months. Former smoker. ? Found to have pneumonia on admission likely triggering COPD exacerbation. ? Continues to have restricted air movement, and barely able to take a few steps without significant work of breathing. ? VBG does not suggest chronic or acute hypercapnia. CTA shows pneumonia but no pulmonary embolism. While COPD may be contributing, I do not believe it is the sole contributor of patient's chronic symptoms especially as patient is on his baseline 2 to 3 L. I do believe symptoms may also be of cardiac origin, would benefit from ischemic workup. ? ECHO with normal biventricular systolic function, valvular function. ? Continue levalbuterol and ipratropium every 4 hours, Pulmicort twice daily. ? Continue IV Solu-Medrol 40 mg twice daily. ? VBG reassuring. Baseline 3 L nasal cannula. ? Pulmonology consulted, pending further recommendation. ? Cardiology consulted, considering inpatient ischemic evaluation. #Community-acquired pneumonia ? CTA chest does reveal bibasilar pneumonia. ? Continue IV ceftriaxone, doxycycline. ? Follow-up sputum culture. ? WBC improved from 11.3-8.7. #Fall ? Seems to be associated with dizziness, acute viral syndrome, dehydration, positive orthostatics. ? Hip, knee x-rays did not show acute findings. ? PT/OT consulted, pending final recommendations. #Mood disorder ? Resume home Depakote, Zyprexa, oxcarbazepine. #Overactive bladder ? Resume home Gemtesa DNR/DNI DVT prophylaxis: Lovenox 40 mg
[2024-10-28] MEDS: ENOXAPARIN 40MG/0.4ML SYRINGE 40 MG SUBCUT (18:11)
[2024-10-28] MEDS: DIVALPROEX 500MG (Delayed-Release) TABLET 500 MG PO (20:42)
[2024-10-28] MEDS: OXcarbazepine 300MG TABLET 300 MG PO (20:42)
[2024-10-28] MEDS: MELATONIN 5MG TABLET 5 MG PO (20:42)
[2024-10-28] MEDS: OLANZapine 5 MG ODT TABLET 15 MG SL (20:42)
[2024-10-29] MEDS: LEVALBUTEROL 1.25MG/3ML NEB 1.25 MG IH ×3 (02:05→09:29)
[2024-10-29] MEDS: IPRATROPIUM BROMIDE 0.5 MG/2.5ML SOLUTION IH ×3 (02:05→09:29)
[2024-10-29 02:07] VITALS: PULSE 107; PULSE 108
[2024-10-29 04:00] VITALS: BMI 27.9
[2024-10-29 04:34] VITALS: BP 147/91; PULSE 87; RESP 18; TEMP 36.6; O2SAT 97
--- NOTE | 2024-10-29 05:08 | PC.NURSE ---
Pt. is alert and orientated x 4. Pt. is on oxygen 2 liters per NC. pt. has a congested cough and c/o SOA. Lung sounds wheezy. Pt. getting deunebs and breathing has improved. Pt. getting IVF and IV antibiotics. Pt. has a purewick in place . Pt. was extremely SOB and sats dropping when he was trying to sit on the side of the bed and use the urinal. Pt. slepeing off and on this shift. Vss. Personal items and call luo in reach.
[2024-10-29 06:36] VITALS: PULSE 84; PULSE 88; O2SAT 97
[2024-10-29] MEDS: BUDESONIDE 0.5MG/2ML NEB 0.5 MG IH (06:36)
[2024-10-29 07:00] LABS: Basophils # 0.1 K/mm3 (0-0.2); Basophils % 0.7 % (0.1-2.0); Hematocrit 40.9 % (42.0-52.0); Hemoglobin 13.4 g/dL (14.1-18.0); Lymphocytes # 0.6 K/mm3 (0.7-4.5); Lymphocytes % 6.8 % (10-50); Mean Corpuscular HGB Conc 32.8 g/dL (31.8-35.4); Mean Corpuscular Hemoglobin 30.5 pg (27.0-31.2); Mean Platelet Volume 10.4 fl (7.4-10.4); Monocytes # 0.5 K/mm3 (0.1-1.0); Neutrophils # 7.5 K/mm3 (1.8-7.8); Neutrophils % 85.4 % (37.0-80.0); Platelet Count 218 K/mm3 (142-424); Red Cell Distribution Width 14.1 % (11.5-17.5); White Blood Count 8.8 K/mm3 (4.8-10.8)
[2024-10-29 07:16] LABS: Anion Gap 6.7 mEq/L (5-15); Blood Urea Nitrogen 27 mg/dl (9-20); Calcium 8.7 mg/dl (8.4-10.2); Carbon Dioxide 31 mmol/L (22.0-30.0); Chloride 107 mmol/L (98-107); Creatinine Clearance Estimated 89 mL/min (50-200); Estimated Glomerular Filt Rate 74 ml/min (>60); GFR (African American) 90 ML/MIN (>60); Glucose 140 mg/dl (74-100); Potassium 3.7 mmoL/L (3.5-5.1); Sodium 141 mmol/L (136-145)
[2024-10-29 07:40] VITALS: BP 145/74; PULSE 91; RESP 17; TEMP 36.6; O2SAT 97
[2024-10-29] MEDS: DOXYCYCLINE HYCLATE 100 MG in 0.9 % SODIUM CHLORIDE 250 ML 166.667 MG IV (07:58)
[2024-10-29] MEDS: ENOXAPARIN 40MG/0.4ML SYRINGE 40 MG SUBCUT (07:59)
[2024-10-29] MEDS: METOPROLOL SUCCINATE XL 25MG TABLET 25 MG PO (08:00)
[2024-10-29] MEDS: METHYLPREDNISOLONE SOD SUCC 40MG VIAL 40 MG IV (08:00)
[2024-10-29] MEDS: MAGNESIUM OXIDE 400MG TABLET 400 MG PO (08:00)
[2024-10-29] MEDS: FUROSEMIDE 40 MG TABLET PO (08:00)
[2024-10-29] MEDS: OXcarbazepine 300MG TABLET 300 MG PO (08:00)
[2024-10-29] MEDS: DIVALPROEX 500MG (Delayed-Release) TABLET 500 MG PO (08:00)
--- NOTE | 2024-10-29 09:25 | EXP.CARD.PN ---
Subjective Subjective Date: 10/29/24 Time: 09:25 Principal diagnosis: SOA Interval history: 69-year-old white male lying in bed in no acute distress. Denies any chest pain, pressure or tightness overnight. Troponin normal NT proBNP 1460 CTA of the chest negative for PE. Bilateral pneumonia noted. Echocardiogram shows EF 60% with no wall motion abnormalities. Exam Data for Last 24 hours Vital signs and Labs for Last 24 Hours: Temp Pulse Resp BP Pulse Ox O2 Del Method O2 Flow Rate 98 F 91 H 17 145/74 H 97 Nasal Cannula 2 10/29/24 07:40 10/29/24 07:40 10/29/24 07:40 10/29/24 07:40 10/29/24 07:40 10/29/24 08:32 10/29/24 08:32 FiO2 32 10/26/24 18:42 Laboratory Results - last 24 hr 10/28/24 14:00: Troponin I < 0.01, NT-Pro-B Natriuret Pep 1460 H 10/29/24 06:30: WBC 8.8, RBC 4.40 L, Hgb 13.4 L, Hct 40.9 L, MCV 93.0, MCH 30.5, MCHC 32.8, RDW 14.1, Plt Count 218 D, MPV 10.4, Neut % (Auto) 85.4 H, Lymph % (Auto) 6.8 L, [place] % (Auto) 6.0, Eos % (Auto) 0.0 L, Baso % (Auto) 0.7, Neut # (Auto) 7.5, Lymph # (Auto) 0.6 L, [place] # (Auto) 0.5, Eos # (Auto) 0.0, Baso # (Auto) 0.1, Sodium 141, Potassium 3.7 D, Chloride 107, Carbon Dioxide 31 H, Anion Gap 6.7, BUN 27 H, Creatinine 1.00 D, Estimated Creat Clear 89, Estimated GFR 74, Est GFR ( Amer) 90 D, Glucose 140 H, Calcium 8.7 I & O for Last 24 hours: Intake & Output 10/26/24 10/27/24 10/28/24 10/29/24 11:59 11:59 11:59 11:59 Intake Total 1068 / 1068 1948 / 1948 2330 / 2330 Output Total 350 / 350 100 / 350 1550 / 2050 1625 / 1625 Balance -350 / -350 968 / 718 398 / -102 705 / 705 Weight 189 lb 193 lb 6.161 oz 199 lb 6.4 oz 199 lb 6.389 oz Constitutional Constitutional: no acute distress *Routine Respiratory Exam Respiratory: Present decreased breath sounds; Absent wheezes *Routine Cardiovascular Exam Cardiovascular: Present RRR; Absent murmur, gallop or rubs Progress Note: A&P Assessment and plan (1) COPD (chronic obstructive pulmonary disease): Status: Acute Assessment and Plan Assessment and Plan for All Diagnoses:: Acute on Chronic Hypoxic Respiratory failure - COPD - Bilateral PNA -On ceftriaxone and steroid COPD - pt states he only uses Albuterol and O2 at home - severely reduced breath sounds throughout - CT shows emphysema and bilat pna but no PE and no effusions or edema - recommend pulm evaluation Angina Pectoris - MATHIS and mild left chest discomfort for 2 years, worse with activity, better with rest - EKG - SR without ischemia or ectopy - ECHO - Nml Bi-V function, no WMA - Add ASA. Cont BB. - troponin normal - consider OP Ischemic evaluation. Stable from cardiac standpoint. Follow-up in our office for further outpatient evaluation.
[2024-10-29 09:29] VITALS: PULSE 83; O2SAT 98
--- NOTE | 2024-10-29 09:58 | P.CONS_ITS ---
History of Present Illness History of present illness: Mr. Pierre is a 69-year-old male detention resident presented to the ER with weakness status post fall. Patient was reported to have positive COVID-19 testing in the detention and pulmonary was called for further evaluation and management. Patient repeat testing on this admission resulted negative. Patient admits greater than [id number] smoking history, last moved around 2023. He is using oxygen supplementation at baseline at 2.5 L. Using albuterol on a daily basis. [facility] Disclaimer: The information contained in this section may have been updated after the patient was seen, as this information can be updated by other users. Medical History (Updated 10/29/24 @ 13:30 by Edwar Bailey MD) COPD exacerbation Pancreatitis GERD (gastroesophageal reflux disease) COPD (chronic obstructive pulmonary disease) Rhinitis CHF (congestive heart failure) Hypertension Insomnia Bipolar disorder Schizo affective schizophrenia Weakness Fatigue Respiratory failure with hypoxia Social History Smoking Status: Former smoker alcohol intake: never current occupational status: other Travel in the last 8 weeks: None Review of Systems Constitutional Constitutional: Reports fatigue and Reports weakness Eyes Eyes: Denies itchy eyes and Denies loss of vision ENT Ears, Nose, Mouth, and Throat: Denies lip swelling, Denies throat swelling and Denies vertigo *Cardiovascular Cardiovascular: Reports dyspnea, Reports dyspnea on exertion and Denies syncope *Respiratory Respiratory: Denies change in phlegm color, Reports chest congestion, Reports cough, Reports dyspnea, Reports dyspnea on exertion, Reports excessive phlegm production and Reports wheezing *Gastrointestinal Gastrointestinal: Denies abdominal pain, Denies belching and Denies cramping *Musculoskeletal Musculoskeletal: Reports back pain, Reports myalgias and Reports other (No small joint swelling or Pain) *Neurologic Neurologic: Denies loss of vision, Denies syncope, Denies vertigo and Reports weakness Psychiatric Psychiatric: Denies homicidal ideation and Denies suicidal ideation Endocrine Endocrine: Reports fatigue and Denies heat intolerance Hematologic/Lymphatic Hematologic/Lymphatic: Denies easy bleeding and Denies lymphadenopathy Allergic/Immunologic Allergic/Immunologic: Denies itchy eyes, Denies lip swelling, Denies throat swelling and Reports wheezing Pulmonology Exam Inpatient Vital signs and Labs for Last 24 Hours: Temp Pulse Resp BP Pulse Ox O2 Del Method O2 Flow Rate 98 F 83 17 145/74 H 98 Nasal Cannula 2 10/29/24 07:40 10/29/24 09:29 10/29/24 07:40 10/29/24 07:40 10/29/24 09:29 10/29/24 09:51 10/29/24 09:51 FiO2 32 10/26/24 18:42 Laboratory Results - last 24 hr 10/28/24 14:00: Troponin I < 0.01, NT-Pro-B Natriuret Pep 1460 H 10/29/24 06:30: WBC 8.8, RBC 4.40 L, Hgb 13.4 L, Hct 40.9 L, MCV 93.0, MCH 30.5, MCHC 32.8, RDW 14.1, Plt Count 218 D, MPV 10.4, Neut % (Auto) 85.4 H, Lymph % (Auto) 6.8 L, [place] % (Auto) 6.0, Eos % (Auto) 0.0 L, Baso % (Auto) 0.7, Neut # (Auto) 7.5, Lymph # (Auto) 0.6 L, [place] # (Auto) 0.5, Eos # (Auto) 0.0, Baso # (Auto) 0.1, Sodium 141, Potassium 3.7 D, Chloride 107, Carbon Dioxide 31 H, Anion Gap 6.7, BUN 27 H, Creatinine 1.00 D, Estimated Creat Clear 89, Estimated GFR 74, Est GFR ( Amer) 90 D, Glucose 140 H, Calcium 8.7 I & O for Labs for Last 24 Hours: Intake & Output 10/26/24 10/27/24 10/28/24 10/29/24 23:59 23:59 23:59 23:59 Intake Total 828 / 948 960 / 1620 1808 / 2698 1750 / 1750 Output Total 350 / 350 775 / 1025 1825 / 1825 675 / 675 Balance 478 / 598 185 / 595 -17 / 873 1075 / 1075 Weight 189 lb 193 lb 6.161 oz 199 lb 6.4 oz 199 lb 6.389 oz Constitutional: Present moderate distress Head: Present normocephalic and atraumatic ENT: Present normal exam, normal oropharynx and mucous membranes moist Neck: Present normal inspection and full ROM Respiratory: Present respiratory distress, wheezes, diminished air movement and able to speak in complete sentences; Absent rhonchi or crackles Cardiac: Present S1/S2, Tachycardia and radial pulses present GI: Present soft and distention; Absent tenderness or guarding Skin: Present intact; Absent cyanosis or jaundice Neuro: Present alert, awake and oriented x 3 Extremities: Present normal inspection; Absent clubbing or cyanosis Psychiatric: Present normal affect and cooperative Meds Home Medications and Allergies Home Medications ?Medication ?Instructions ?Recorded ?Confirmed ?Type albuterol sulfate 90 mcg/actuation 2 puff inhalation Q6HP PRN 06/25/24 10/26/24 History aerosol inhaler Shortness Of Breath Or Wheezing divalproex 500 mg tablet,delayed 500 mg PO BID 06/25/24 10/26/24 History release famotidine 40 mg tablet 40 mg PO DAILY 06/25/24 10/26/24 History fluticasone propionate 50 1 spray intranasal DAILY 06/25/24 10/26/24 History mcg/actuation nasal spray,suspension furosemide 40 mg tablet 40 mg PO DAILY 06/25/24 10/26/24 History ipratropium 0.5 mg-albuterol 3 mg 3 ml inhalation Q6HP PRN Shortness 06/25/24 10/26/24 History (2.5 mg base)/3 mL nebulization Of Breath Or Wheezing soln loratadine 10 mg tablet 10 mg PO DAILY 06/25/24 10/26/24 History melatonin 5 mg tablet 5 mg PO HS 06/25/24 10/26/24 History metoprolol succinate 25 mg 25 mg PO DAILY 06/25/24 10/26/24 History tablet,extended release 24 hr oxcarbazepine 300 mg tablet 300 mg PO BID 06/25/24 10/26/24 History polyethylene glycol 3350 17 17 g PO DAILY 06/25/24 10/26/24 History gram/dose oral powder acetaminophen 500 mg tablet 1,000 mg PO Q6HP PRN Fever Or Pain 10/26/24 10/26/24 History aluminum hydrox-magnesium carb 95 30 ml PO Q6HP PRN Indigestion 10/26/24 10/26/24 History mg-358 mg/15 mL oral suspension (Acid Gone Antacid) amantadine HCl 100 mg tablet 100 mg PO BID 10/26/24 10/26/24 History lactulose 10 gram/15 mL oral 20 g PO DAILYP PRN Constipation 10/26/24 10/26/24 History solution magnesium oxide 400 mg (241.3 mg 400 mg PO DAILY 10/26/24 10/26/24 History magnesium) tablet olanzapine 15 mg tablet 15 mg PO HS 10/26/24 10/26/24 History potassium chloride 10 mEq 10 meq PO DAILY 10/26/24 10/26/24 History tablet,extended release(part/cryst) vibegron 75 mg tablet (Gemtesa) 75 mg PO HS 10/26/24 10/26/24 History fluticasone fur. 200 mcg-umeclid 1 inh inhalation DAILY 30 days #60 10/28/24 Rx 62.5 mcg-vilant 25 mcg ea inhalat.powder (Trelegy Ellipta) New Prescriptions to Start Prescriptions: [id number] [Trelegy Ellipta] Conrad Lozada Allergies Allergy/AdvReac Type Severity Reaction Status Date / Time No Known Allergies Allergy Verified 06/25/24 01:20 Results Laboratory Findings 10/29/24 06:30 10/29/24 06:30 Abnormal lab findings: Abnormal Labs 10/26/24 10/26/24 10/26/24 05:04 05:10 12:00 WBC 11.3 H RBC Hgb Hct Plt Count MPV Neut % (Auto) Lymph % (Auto) 8.9 L [place] % (Auto) 13.4 H Eos % (Auto) Neut # (Auto) 8.5 H Lymph # (Auto) [place] # (Auto) 1.5 H VBG pH 7.42 H VBG pO2 52.3 H VBG HCO3 30.6 H VBG Total CO2 32.1 H VBG O2 Saturation 86.8 H VBG Base Excess 6.2 H Chloride 97 L 97 L Carbon Dioxide 35 H 36 H BUN 25 H 22 H Creatinine 1.40 H Estimated GFR 50 L Glucose 109 H 106 H NT-Pro-B Natriuret Pep TSH 0.35 L Urine Blood 10/26/24 10/27/24 10/27/24 12:25 06:00 13:45 WBC 11.3 H RBC 4.38 L Hgb 13.4 L Hct 40.3 L Plt Count MPV Neut % (Auto) Lymph % (Auto) 7.6 L [place] % (Auto) 11.3 H Eos % (Auto) Neut # (Auto) 9.0 H Lymph # (Auto) [place] # (Auto) 1.3 H VBG pH VBG pO2 76.4 H VBG HCO3 VBG Total CO2 27.9 H VBG O2 Saturation 94.8 H VBG Base Excess Chloride Carbon Dioxide 31 H BUN 21 H Creatinine Estimated GFR Glucose 104 H NT-Pro-B Natriuret Pep TSH Urine Blood 1+ A 10/28/24 10/28/24 10/29/24 06:26 14:00 06:30 WBC RBC 4.32 L 4.40 L Hgb 13.1 L 13.4 L Hct 39.9 L 40.9 L Plt Count 133 L D MPV 12.2 H Neut % (Auto) 85.1 H 85.4 H Lymph % (Auto) 5.6 L 6.8 L [place] % (Auto) Eos % (Auto) 0.0 L Neut # (Auto) Lymph # (Auto) 0.5 L 0.6 L [place] # (Auto) VBG pH VBG pO2 VBG HCO3 VBG Total CO2 VBG O2 Saturation VBG Base Excess Chloride Carbon Dioxide 31 H BUN 23 H 27 H Creatinine Estimated GFR Glucose 119 H 140 H NT-Pro-B Natriuret Pep 1460 H TSH Urine Blood Assessment and Plan *Assessment and plan (1) Bilateral pneumonia: Status: Acute Category: Medical Code(s): J18.9 - Pneumonia, unspecified organism (2) Acute on chronic hypoxic respiratory failure: Status: Acute Category: Medical Code(s): J96.21 - Acute and chronic respiratory failure with hypoxia (3) COPD exacerbation: Status: Acute Category: Medical Code(s): J44.1 - Chronic obstructive pulmonary disease with (acute) exacerbation Plan Mr. Pierre is a 69-year-old male detention resident presented to the ER with weakness status post fall. Patient was reported to have positive COVID-19 testing in the detention and pulmonary was called for further evaluation and management. Patient repeat testing on this admission resulted negative. Patient admits greater than [id number] smoking history, last moved around 2023. He is using oxygen supplementation at baseline at 2.5 L. Using albuterol on a daily basis. CT chest PE protocol upon admission bilateral subpleural interstitial changes with minimal patchy airspace disease on the lower lung streeter. No other dense consolidative/airspace changes appreciated. Emphysematous changes noted. Linear consolidative/atelectatic changes noted in the left upper lobe which is likely a scar. 9 mm nodule in the right middle lobe, likely infectious etiology, will follow-up with repeat image. Currently on DuoNebs Q4 scheduled along with Pulmicort every 12 and methylprednisolone 40 every 12hrs Plan: Continue oxygen supplementation to maintain O2 saturation goal of 90 to 95%. This morning on 2.5 L. Trelegy 100 inhaler along with DuoNebs 4 times daily as needed Antibiotics can be weaned to cefdinir to complete a total of 5 days Wean steroids to prednisone 40 mg daily to complete a total of 5-day course Thank you for involving pulmonary in this patient care will follow the patient in pulmonary clinic 2 to 4 weeks postdischarge. The possibility of underlying interstitial lung disease from his agent orange exposure /other autoimmune process contributing his current symptom burden will be evaluated as an outpatient basis with a full PFT and walk testing.
[2024-10-29] MEDS: ASPIRIN 81MG CHEWABLE TABLET 81 MG PO (10:05)
--- NOTE | 2024-10-29 14:18 | EXP.DC.SUM ---
General Admission date:: 10/26/24 Hospital Course Hospital Course Hospital Course: Devin Pierre is a 69-year-old male who presents from nursing facility after feeling dizzy and falling on his left hip, and admitted for the same. He apparently tested positive for COVID-19 at the facility, but negative here. He notes he has been having dyspnea on exertion for the past 2 years which has gradually become worse. He states over the past few months he has not been able to take a few steps without significant increased work of breathing. Denies any cardiac history, has quit smoking many years ago. #Dyspnea on exertion, exercise intolerance #COPD exacerbation #Community-acquired pneumonia ? Longstanding issue of dyspnea on exertion, progressively worse over the past few months. Former smoker. ? Found to have pneumonia on admission likely triggering COPD exacerbation. ? VBG does not suggest chronic or acute hypercapnia. CTA shows pneumonia but no pulmonary embolism. While COPD may be contributing, I do not believe it is the sole contributor of patient's chronic symptoms especially as patient is on his baseline 2 to 3 L. I do believe symptoms may also be of cardiac origin, would benefit from ischemic workup. ? ECHO with normal biventricular systolic function, valvular function. ? Clinically improved with breathing treatments, antibiotics, steroids. ? Pulmonology consulted, recommended outpatient PFT and walk test for further evaluation of exercise intolerance. Believe previous exposure to agent orange is also playing a factor. ? Cardiology consulted, planning for outpatient ischemic workup. Will follow-up with cardiology within 1 week. ? Discharged with cefdinir for 3 more days, prednisone for 2 more days. ? Will follow-up with pulmonology within 1 week. #Fall ? Seems to be associated with dizziness, acute viral syndrome, dehydration, positive orthostatics. ? Hip, knee x-rays did not show acute findings. ? PT/OT consulted, Will refer to outpatient PT/OT. #Mood disorder ? Resume home Depakote, Zyprexa, oxcarbazepine. #Overactive bladder ? Resume home Gemtesa Exam Data for Last 24 hours Vital signs and Labs for Last 24 Hours: Temp Pulse Resp BP Pulse Ox O2 Del Method O2 Flow Rate 98 F 83 17 145/74 H 98 Nasal Cannula 2 10/29/24 07:40 10/29/24 09:29 10/29/24 07:40 10/29/24 07:40 10/29/24 09:29 10/29/24 12:13 10/29/24 12:13 FiO2 32 10/26/24 18:42 Laboratory Results - last 24 hr 10/28/24 14:00: Troponin I < 0.01, NT-Pro-B Natriuret Pep 1460 H 10/29/24 06:30: WBC 8.8, RBC 4.40 L, Hgb 13.4 L, Hct 40.9 L, MCV 93.0, MCH 30.5, MCHC 32.8, RDW 14.1, Plt Count 218 D, MPV 10.4, Neut % (Auto) 85.4 H, Lymph % (Auto) 6.8 L, [place] % (Auto) 6.0, Eos % (Auto) 0.0 L, Baso % (Auto) 0.7, Neut # (Auto) 7.5, Lymph # (Auto) 0.6 L, [place] # (Auto) 0.5, Eos # (Auto) 0.0, Baso # (Auto) 0.1, Sodium 141, Potassium 3.7 D, Chloride 107, Carbon Dioxide 31 H, Anion Gap 6.7, BUN 27 H, Creatinine 1.00 D, Estimated Creat Clear 89, Estimated GFR 74, Est GFR ( Amer) 90 D, Glucose 140 H, Calcium 8.7 I & O for Last 24 hours: Intake & Output 10/26/24 10/27/24 10/28/24 10/29/24 23:59 23:59 23:59 23:59 Intake Total 828 / 948 960 / 1620 1808 / 2698 2580 / 2580 Output Total 350 / 350 775 / 1025 1825 / 1825 1725 / 1725 Balance 478 / 598 185 / 595 -17 / 873 855 / 855 Weight 85.729 kg 87.718 kg 90.446 kg 90.446 kg Constitutional Constitutional: no acute distress *Routine HEENT Exam Head: Present normocephalic Eye: Present EOMI and PERRL ENT: Present mucous membranes moist *Routine Neck Exam Neck: Present supple; Absent lymphadenopathy *Routine Respiratory Exam Respiratory: Present diminished air movement; Absent CTA bilaterally *Routine Cardiovascular Exam Cardiovascular: Present RRR *Routine Abdominal Exam Abdominal: Present soft and normoactive bowel sounds; Absent tenderness *Routine Extremities Exam Extremities: Absent cyanosis, clubbing or edema *Routine Skin Exam Skin: Present warm; Absent rash *Routine Neurological Exam Neurological: Present alert and oriented X3 Results Data Completed and Pending Labs on day of discharge: Labs from last 24 hours 10/29/24 10/28/24 06:30 14:00 WBC 8.8 RBC 4.40 L Hgb 13.4 L Hct 40.9 L MCV 93.0 MCH 30.5 MCHC 32.8 RDW 14.1 Plt Count 218 D MPV 10.4 Neut % (Auto) 85.4 H Lymph % (Auto) 6.8 L [place] % (Auto) 6.0 Eos % (Auto) 0.0 L Baso % (Auto) 0.7 Neut # (Auto) 7.5 Lymph # (Auto) 0.6 L [place] # (Auto) 0.5 Eos # (Auto) 0.0 Baso # (Auto) 0.1 Sodium 141 Potassium 3.7 D Chloride 107 Carbon Dioxide 31 H Anion Gap 6.7 BUN 27 H Creatinine 1.00 D Estimated Creat Clear 89 Estimated GFR 74 Est GFR ( Amer) 90 D Glucose 140 H Calcium 8.7 Troponin I < 0.01 NT-Pro-B Natriuret Pep 1460 H DS: Diagnosis Discharge Diagnosis (1) Bilateral pneumonia: Status: Acute Code(s): J18.9 - Pneumonia, unspecified organism (2) Acute on chronic hypoxic respiratory failure: Status: Acute Code(s): J96.21 - Acute and chronic respiratory failure with hypoxia (3) COPD exacerbation: Status: Acute Code(s): J44.1 - Chronic obstructive pulmonary disease with (acute) exacerbation Meds Home Medications and Allergies Home Medications ?Medication ?Instructions ?Recorded ?Confirmed ?Type albuterol sulfate 90 mcg/actuation 2 puff inhalation Q6HP PRN 06/25/24 10/26/24 History aerosol inhaler Shortness Of Breath Or Wheezing divalproex 500 mg tablet,delayed 500 mg PO BID 06/25/24 10/26/24 History release famotidine 40 mg tablet 40 mg PO DAILY 06/25/24 10/26/24 History fluticasone propionate 50 1 spray intranasal DAILY 06/25/24 10/26/24 History mcg/actuation nasal spray,suspension furosemide 40 mg tablet 40 mg PO DAILY 06/25/24 10/26/24 History ipratropium 0.5 mg-albuterol 3 mg 3 ml inhalation Q6HP PRN Shortness 06/25/24 10/26/24 History (2.5 mg base)/3 mL nebulization Of Breath Or Wheezing soln loratadine 10 mg tablet 10 mg PO DAILY 06/25/24 10/26/24 History melatonin 5 mg tablet 5 mg PO HS 06/25/24 10/26/24 History metoprolol succinate 25 mg 25 mg PO DAILY 06/25/24 10/26/24 History tablet,extended release 24 hr oxcarbazepine 300 mg tablet 300 mg PO BID 06/25/24 10/26/24 History polyethylene glycol 3350 17 17 g PO DAILY 06/25/24 10/26/24 History gram/dose oral powder acetaminophen 500 mg tablet 1,000 mg PO Q6HP PRN Fever Or Pain 10/26/24 10/26/24 History aluminum hydrox-magnesium carb 95 30 ml PO Q6HP PRN Indigestion 10/26/24 10/26/24 History mg-358 mg/15 mL oral suspension (Acid Gone Antacid) amantadine HCl 100 mg tablet 100 mg PO BID 10/26/24 10/26/24 History lactulose 10 gram/15 mL oral 20 g PO DAILYP PRN Constipation 10/26/24 10/26/24 History solution magnesium oxide 400 mg (241.3 mg 400 mg PO DAILY 10/26/24 10/26/24 History magnesium) tablet olanzapine 15 mg tablet 15 mg PO HS 10/26/24 10/26/24 History potassium chloride 10 mEq 10 meq PO DAILY 10/26/24 10/26/24 History tablet,extended release(part/cryst) vibegron 75 mg tablet (Gemtesa) 75 mg PO HS 10/26/24 10/26/24 History fluticasone fur. 200 mcg-umeclid 1 inh inhalation DAILY 30 days #60 10/28/24 Rx 62.5 mcg-vilant 25 mcg ea inhalat.powder (Trelegy Ellipta) cefdinir 300 mg capsule 300 mg PO BID 3 days #6 caps 10/29/24 Rx prednisone 20 mg tablet 40 mg (2 x 20 mg) PO DAILY 2 days 10/29/24 Rx #4 tabs New Prescriptions to Start Prescriptions: cefdinir [place],Conrad [id number] [Trelegy Ellipta] Conrad Lozada prednisone Conrad Lozada Allergies Allergy/AdvReac Type Severity Reaction Status Date / Time No Known Allergies Allergy Verified 06/25/24 01:20 Discharge Plan Disposition Patient Disposition: [facility] Condition: Fair Discharge Order Discharge Orders: Discharge Order (Routine); Ordered 10/29/24 Ordered By: Conrad Lozada Follow up Plan Follow up with: Vick Jordan PA [Physician Internet Merchant] - 11/04/24 1:45 pm Edwar Bailey MD [Physician] - 11/22/24 1:00 pm Prescriptions/Medication Reconciliation: New cefdinir 300 mg capsule 300 mg PO BID 3 Days Qty: 6 0RF prednisone 20 mg tablet 40 mg PO DAILY 2 Days Qty: 4 0RF Continued furosemide 40 mg tablet 40 mg PO DAILY ipratropium-albuterol 0.5 mg-3 mg(2.5 mg base)/3 mL solution for nebulization 3 ml INHALATION Q6HP PRN (Reason: Shortness Of Breath Or Wheezing) famotidine 40 mg tablet 40 mg PO DAILY oxcarbazepine 300 mg tablet 300 mg PO BID divalproex 500 mg tablet,delayed release (DR/EC) 500 mg PO BID metoprolol succinate 25 mg tablet extended release 24 hr 25 mg PO DAILY polyethylene glycol 3350 17 gram/dose powder 17 g PO DAILY albuterol sulfate 90 mcg/actuation HFA aerosol inhaler 2 puff INHALATION Q6HP PRN (Reason: Shortness Of Breath Or Wheezing) fluticasone propionate 50 mcg/actuation spray,suspension 1 spray INTRANASAL DAILY loratadine 10 mg tablet 10 mg PO DAILY melatonin 5 mg tablet 5 mg PO HS amantadine HCl 100 mg tablet 100 mg PO BID Acid Gone Antacid 95-358 mg/15 mL suspension 30 ml PO Q6HP PRN (Reason: Indigestion) acetaminophen 500 mg Tablet 1,000 mg PO Q6HP PRN (Reason: Fever Or Pain) magnesium oxide 400 mg (241.3 mg magnesium) tablet 400 mg PO DAILY olanzapine 15 mg tablet 15 mg PO HS potassium chloride 10 mEq tablet,ER particles/crystals 10 meq PO DAILY lactulose 10 gram/15 mL solution 20 g PO DAILYP PRN (Reason: Constipation) Gemtesa 75 mg Tablet 75 mg PO HS Trelegy Ellipta 200-62.5-25 mcg blister with device 1 inh INHALATION DAILY 30 Days Qty: 60 0RF Problem Reconciliation Problems Reviewed?: Yes Patient Discharge Instructions Patient Instructions: DI for Chronic Obstructive Pulmonary Disease, DI for COVID-19 (Suspected or Confirmed ) Print Language: Sinhala Providers Primary Care Provider: Provider,Referral Admit Provider: Tobi Walker Attending Provider: Tobi Walker
--- NOTE | 2024-10-29 15:21 | PC.NURSE ---
care home and ambulance called.
== END 2024-10-29 17:07 | DRG 189 ==
LOC: ER 06:36 → 2ND 06:43
PROVIDERS: Emergency Medicine; Nurse Practitioner Family; Physician Assistant; Student in an Organized Health Care Education/Training Program; Admitting Provider Internal Medicine Adolescent Medicine; Emergency Provider Student in an Organized Health Care Education/Training Program; Visit Provider Internal Medicine Adolescent Medicine
DX: J96.21 Acute and chronic respiratory failure with hypoxia (principal); J18.9 Pneumonia, unspecified organism; J44.1 Chronic obstructive pulmonary disease with (acute) exacerbation; N17.9 Acute kidney failure, unspecified; R42 Dizziness and giddiness; W06.XXXA Fall from bed, initial encounter; B34.9 Viral infection, unspecified; F25.9 Schizoaffective disorder, unspecified; Y92.122 Bedroom in nursing home as the place of occurrence of the external cause; K21.9 Gastro-esophageal reflux disease without esophagitis; N32.81 Overactive bladder; I10 Essential (primary) hypertension; I20.9 Angina pectoris, unspecified; Y99.8 Other external cause status; Z91.81 History of falling; Z99.81 Dependence on supplemental oxygen; Z79.51 Long term (current) use of inhaled steroids; Z87.891 Personal history of nicotine dependence; Z72.3 Lack of physical exercise; Z79.899 Other long term (current) drug therapy; Z77.29 Contact with and (suspected) exposure to other hazardous substances; Z74.1 Need for assistance with personal care
CPT/HCPCS: 36415; 70450; 71045; 71275; 72125; 73502; 73562; 80048; 80053; 81001; 82803; 83735; 83880; 84439; 84443; 84484; 85025; 87633; 87636; 93005; 93306; 94640; 94761; 97110; 97163; 97166; 97530; 99285; J0456; J0696; J1650; J2919; J7050; J7120; J7614; J7620; J7644; Q9957; Q9967

== ENCOUNTER 2024-11-15 08:57 | Outpatient (CLI) | payer MEDICARE, MEDICAID, SELFPAY ==
--- NOTE | 2024-11-15 09:00 | XR_ITS ---
FINAL REPORT CLINICAL HISTORY: PNX FINDINGS: 2 views of the chest were obtained . The heart is normal in size. The mediastinum is within normal limits. There is advanced bullous emphysema of the left lung and left pleural scarring. There is mild right base scarring. There is no pneumothorax. Osseous structures are unremarkable. IMPRESSION: Emphysema without acute findings. Reviewed, Interpreted and Dictated by Joelle Quan MD Transcribed by Alix Cavazos Authenticated and [facility]
--- NOTE | 2024-11-15 09:00 | CT_ITS ---
FINAL REPORT TECHNIQUE: Oral and IV contrast enhanced exam This study was performed with techniques to keep radiation doses as low as reasonably achievable, (ALARA). Individualized dose reduction techniques using automated exposure control or adjustment of mA and/or kV according to the patient''s size were employed. CLINICAL HISTORY: carcinoid tumor FINDINGS: Abdomen: The gallbladder is absent. There is mild biliary ductal dilatation likely related to postcholecystectomy change. No liver masses identified. There is a small right renal cyst. Remaining solid abdominal organs are unremarkable. No bowel obstruction is present. There is no free air. No fluid collection is seen. There is no adenopathy or ascites. Pelvis: The appendix is normal. No pelvic mass is identified. Urinary bladder is mildly distended with small diverticulum present. Prostate is unremarkable. No bowel wall thickening is present. There is no free fluid. IMPRESSION: No evidence of metastatic disease or obvious primary mass. Reviewed, Interpreted and Dictated by Joelle Quan MD Transcribed by Alix Cavazos Authenticated and [facility]
--- NOTE | 2024-11-15 09:00 | CT_ITS ---
FINAL REPORT TECHNIQUE: Axial CT with contrast This study was performed with techniques to keep radiation doses as low as reasonably achievable, (ALARA). Individualized dose reduction techniques using automated exposure control or adjustment of mA and/or kV according to the patient''s size were employed. CLINICAL HISTORY: carcinoid tumor COMPARISON: 10/27/2024 FINDINGS: Pulmonary vessels enhance in normal fashion without evidence of embolism. Thoracic aorta shows no dissection or aneurysm. Previously seen anterior right midlung nodule has resolved. This may have been inflammatory or related to posttreatment change. There is scattered scarring and advanced emphysematous disease. There is no significant pleural effusion. There is no significant pericardial effusion. No mediastinal or hilar adenopathy is present. IMPRESSION: Resolved lung nodule consistent which may have been inflammatory or related to posttreatment change. Scattered scarring and advanced emphysema. Reviewed, Interpreted and Dictated by Joelle Quan MD Transcribed by Alix Cavazos Authenticated and [facility]
[2024-11-15] MEDS: IOPAMIDOL-370 (76%);100ML BOTTLE 75 ML IV (09:38)
[2024-11-15] MEDS: SODIUM CHLORIDE 0.9% 10ML SYR (RAD ONLY) 10 ML IV (09:38)
== END 2024-11-15 23:59 | disposition home or self-care (01) ==
LOC: RAD 09:00
PROVIDERS: PCP Internal Medicine Adolescent Medicine; Visit Provider Internal Medicine Medical Oncology
DX: J96.21 Acute and chronic respiratory failure with hypoxia (principal); K86.89 Other specified diseases of pancreas; D3A.090 Benign carcinoid tumor of the bronchus and lung
CPT/HCPCS: 71046; 71260; 74177; Q9967

== ENCOUNTER 2024-12-10 14:53 | Observation (INO) | payer MEDICARE, MEDICAID, SELFPAY ==
[2024-12-10] VITALS (9 sets, daily range): BP systolic 133–183; BP diastolic 74–146; PULSE 60–82; RESP 14–26; TEMP 36.6–36.9; O2SAT 89–100; BMI 26.7
--- NOTE | 2024-12-10 15:07 | ECG_ITS ---
APPROVED REPORT Exam: Resting ECG HR:82 bpm ECG Measurements Heart Rate 82 AXES FL 196 P 86 QRSd 89 QRS 76 QT 364 T 83 QTc [address] DEVIATION AND MODERATE T-WAVE ABNORMALITY, CONSIDER ANTERIOR ISCHEMIA [-0.1+ mV T-WAVE IN V3/V4] ABNORMAL ECG UNCONFIRMED REPORT Electronically signed by : LC VILLATORO, 12/12/2024 03:41:22
--- NOTE | 2024-12-10 15:12 | CT_ITS ---
PROCEDURE INFORMATION: Exam: CT Head Without Contrast Exam date and time: 12/10/2024 4:05 PM Age: 69 years old Clinical indication: Altered mental status/memory loss; Additional info: AMS, dysarthria TECHNIQUE: Imaging protocol: Computed tomography of the head without contrast. Radiation optimization: All CT scans at this facility use at least one of these dose optimization techniques: automated exposure control; mA and/or kV adjustment per patient size (includes targeted exams where dose is matched to clinical indication); or iterative reconstruction. COMPARISON: CT HEAD/BRAIN WO CON 10/26/2024 5:25 AM FINDINGS: Brain: Global cerebral volume loss. No acute intracranial hemorrhage. No intra- or extra-axial fluid collection. No mass effect or midline shift. No evidence of acute/subacute vascular territory infarct. Periventricular and subcortical white matter hypodensities compatible with chronic hypertensive microvascular disease. Cerebral ventricles: No hydrocephalus. Paranasal sinuses: No air fluid levels in the visualized paranasal sinuses. Mastoid air cells: Visualized mastoid air cells are clear. Bones: No evidence of acute calvarial or skull base fracture. Soft tissues: Unremarkable. IMPRESSION: 1. No evidence of acute intracranial hemorrhage or acute/subacute vascular territory infarct. 2. White matter changes compatible with chronic hypertensive microvascular disease. 3. Global cerebral volume loss. ASSESSMENT: ASPECTS ([place] Stroke Program Early CT Score) is 10.
--- NOTE | 2024-12-10 15:12 | XR_ITS ---
FINAL REPORT CLINICAL HISTORY: ams, lethargy COMPARISON: 11/15/2024 FINDINGS: There is advanced underlying emphysematous change. Left perihilar density is suggestive of scarring. There is no pleural effusion. Mediastinum is unremarkable. Heart size is normal. IMPRESSION: Chronic changes without acute abnormality. Reviewed, Interpreted and Dictated by Joelle Quan MD Transcribed by Kacey Allen Authenticated and [facility]
--- NOTE | 2024-12-10 15:12 | CT_ITS ---
PROCEDURE INFORMATION: Exam: CTA Head With Contrast, Arteriography Exam date and time: 12/10/2024 4:10 PM Age: 69 years old Clinical indication: Other: AMS; Additional info: AMS, dysarthria TECHNIQUE: Imaging protocol: Computed tomographic angiography of the head with contrast. Exam focused on the arteries. 3D rendering (Not supervised by radiologist): MIP and/or 3D reconstructed images were created by the technologist. Radiation optimization: All CT scans at this facility use at least one of these dose optimization techniques: automated exposure control; mA and/or kV adjustment per patient size (includes targeted exams where dose is matched to clinical indication); or iterative reconstruction. Contrast material: ISO 370; Contrast volume: 80 ml; Contrast route: INTRAVENOUS (IV); COMPARISON: CT HEAD/BRAIN WO CON 12/10/2024 4:05 PM FINDINGS: ANTERIOR CIRCULATION: Right internal carotid artery: Intracranial segment is patent with no significant stenosis. No aneurysm. Right middle cerebral artery: No occlusion or significant stenosis. No aneurysm. Right anterior cerebral artery: No occlusion or significant stenosis. No aneurysm. Left internal carotid artery: Intracranial segment is patent with no significant stenosis. No aneurysm. Left middle cerebral artery: No occlusion or significant stenosis. No aneurysm. Left anterior cerebral artery: No occlusion or significant stenosis. No aneurysm. POSTERIOR CIRCULATION: Right vertebral artery: No occlusion or significant stenosis. No aneurysm. Left vertebral artery: No occlusion or significant stenosis. No aneurysm. Basilar artery: Hypoplastic V4 segment in the right vertebral artery from the level of the posterior inferior cerebellar artery to the basilar confluence, within normal limits for a non-dominant vertebral artery. No aneurysm or focal stenosis. Right posterior cerebral artery: No occlusion or significant stenosis. No aneurysm. Left posterior cerebral artery: No occlusion or significant stenosis. No aneurysm. Brain: No abnormally enhancing brain lesion, mass effect, or midline shift. Cerebral ventricles: No hydrocephalus. Bones/joints: No acute calvarial or skull base fracture. Soft tissues: Unremarkable. IMPRESSION: No evidence of large vessel occlusion, significant stenosis or aneurysm in the intracranial cerebral arteries. PROCEDURE INFORMATION: Exam: CT Maxillofacial With Contrast Exam date and time: 12/10/2024 4:10 PM Age: 69 years old Clinical indication: Other: AMS; Additional info: AMS, dysarthria TECHNIQUE: Imaging protocol: Computed tomography of the face with contrast. Radiation optimization: All CT scans at this facility use at least one of these dose optimization techniques: automated exposure control; mA and/or kV adjustment per patient size (includes targeted exams where dose is matched to clinical indication); or iterative reconstruction. COMPARISON: CT HEAD/BRAIN WO CON 12/10/2024 4:05 PM FINDINGS: Paranasal sinuses: No air-fluid levels. Orbital cavities: Bilateral lens replacement incidentally noted. Globes and orbital structures are otherwise unremarkable. Teeth: Right maxillary periapical lucency consistent with odontogenic abscess. Bones: No evidence of acute fracture. Bilateral temporomandibular joints are congruent. Pterygoid plates and lamina papyracea are intact. Soft tissues: Unremarkable. IMPRESSION: Right maxillary periapical lucency consistent with odontogenic abscess.
--- NOTE | 2024-12-10 15:12 | CT_ITS ---
PROCEDURE INFORMATION: Exam: CTA Neck With Contrast Exam date and time: 12/10/2024 4:10 PM Age: 69 years old Clinical indication: Other: AMS; Additional info: AMS, dysarthria TECHNIQUE: Imaging protocol: Computed tomographic angiography of the neck with contrast. Exam focused on the cervical segments of the vasculature. 3D rendering (Not supervised by radiologist): MIP and/or 3D reconstructed images were created by the technologist. Radiation optimization: All CT scans at this facility use at least one of these dose optimization techniques: automated exposure control; mA and/or kV adjustment per patient size (includes targeted exams where dose is matched to clinical indication); or iterative reconstruction. Contrast material: ISO 370; Contrast volume: 80 ml; Contrast route: INTRAVENOUS (IV); COMPARISON: CT CERVICAL SPINE WO CON 10/26/2024 5:27 AM FINDINGS: Right common carotid artery: No stenosis. No dissection or occlusion. Right internal carotid artery: No stenosis of the extracranial segment. No dissection or occlusion. Right external carotid artery: No occlusion or stenosis of the origin. Left common carotid artery: No stenosis. No dissection or occlusion. Left internal carotid artery: No stenosis of the extra-cranial segment. No dissection or occlusion. Left external carotid artery: No occlusion or stenosis of the origin. Right vertebral artery: No stenosis. No dissection or occlusion. Left vertebral artery: Dominant left vertebral artery, normal variant. No evidence of dissection, occlusion or significant stenosis. Soft tissues: Unremarkable. Bones/joints: No acute osseous abnormality. IMPRESSION: 1. No evidence of occlusion, significant stenosis, dissection or aneurysm in the extracranial cerebral arteries. 2. Concurrent head CTA reported separately. REFERENCES: NASCET CRITERIA. The degree of stenosis in the cervical segment of the internal carotid artery is based on NASCET criteria. Normal is no stenosis. Mild is less than 50% stenosis. Moderate is 50-69% stenosis. Severe is 70% to 99% stenosis. Total occlusion is no detectable patent lumen.
[2024-12-10 15:23] LABS: Basophils # 0.1 K/mm3 (0-0.2); Basophils % 1.1 % (0.1-2.0); Eosinophils # 0.6 K/mm3 (0.0-0.4); Hematocrit 45.7 % (42.0-52.0); Lymphocytes # 1.8 K/mm3 (0.7-4.5); Lymphocytes % 22.6 % (10-50); Mean Corpuscular HGB Conc 32.8 g/dL (31.8-35.4); Mean Corpuscular Hemoglobin 30.9 pg (27.0-31.2); Mean Corpuscular Volume 94.2 fl (80-94); Mean Platelet Volume 9.8 fl (7.4-10.4); Monocytes % 12.1 % (1.7-9.3); Neutrophils # 4.6 K/mm3 (1.8-7.8); Neutrophils % 56.2 % (37.0-80.0); Nucleated Red Blood Cells # 0 10^3/uL; Nucleated Red Blood Cells % 0 %; Platelet Count 291 K/mm3 (142-424); Red Blood Count 4.85 M/mm3 (4.60-6.20); Red Cell Distribution Width 14.6 % (11.5-17.5); Red Cell Distribution Width-SD 50.7 fL; White Blood Count 8.1 K/mm3 (4.8-10.8)
[2024-12-10 15:24] LABS: Albumin Level 4.3 g/dl (3.5-5.0); Chloride 94 mmol/L (98-107); Potassium 4.1 mmoL/L (3.5-5.1); Sodium 141 mmol/L (136-145)
[2024-12-10 15:27] LABS: Alanine Aminotransferase 14 U/L (12-78); Albumin/Globulin Ratio 1.2 (1.1-1.8); Alkaline Phosphatase 70 U/L (38-126); Anion Gap 12.1 mEq/L (5-15); Aspartate Amino Transferase 33 U/L (17-59); Bilirubin,Total 0.6 mg/dl (0.2-1.3); Blood Urea Nitrogen 27 mg/dl (9-20); Carbon Dioxide 39 mmol/L (22.0-30.0); Creatine Kinase 57 U/L (55-170); Estimated Glomerular Filt Rate 38 ml/min (>60); GFR (African American) 45 ML/MIN (>60); Globulin 3.7 g/dL (1.3-3.2)
[2024-12-10 15:28] LABS: Calcium 9.3 mg/dl (8.4-10.2); Glucose 116 mg/dl (74-100)
[2024-12-10 15:30] LABS: Activated Partial Thrombo Time 30.5 seconds (22.8-30.6)
[2024-12-10 15:33] LABS: INR 0.99 (0.9-1.1); Prothrombin Time 11.1 seconds (10.1-12.5)
--- NOTE | 2024-12-10 15:42 | [facility].EDGENADL ---
Discharge Plan Disposition Patient Disposition: Admitted Chief Complaint: Psychiatric Symptoms Prescriptions Prescriptions: No Action buspirone 5 mg tablet 5 mg PO TID famotidine 40 mg tablet 40 mg PO HS furosemide 40 mg tablet 40 mg PO DAILY mirtazapine 7.5 mg tablet 7.5 mg PO DAILY melatonin 5 mg tablet 5 mg PO HS mirabegron 25 mg tablet extended release 24 hr 25 mg PO Gemtesa 75 mg tablet 75 mg PO DAILY loratadine 10 mg tablet 10 mg PO DAILY magnesium oxide 400 mg magnesium tablet 400 mg PO DAILY fluticasone propionate 50 mcg/actuation spray,suspension intranasal oxcarbazepine 300 mg tablet 300 mg PO BID divalproex 500 mg tablet,delayed release (DR/EC) 500 mg PO BID metoprolol succinate 25 mg tablet extended release 24 hr 25 mg PO DAILY polyethylene glycol 3350 17 gram/dose powder 17 g PO DAILY albuterol sulfate 90 mcg/actuation HFA aerosol inhaler 2 puff INHALATION Q6HP PRN (Reason: Shortness Of Breath Or Wheezing) amantadine HCl 100 mg tablet 100 mg PO BID Acid Gone Antacid 95-358 mg/15 mL suspension 30 ml PO Q6HP PRN (Reason: Indigestion) acetaminophen 500 mg Tablet 1,000 mg PO Q6HP PRN (Reason: Fever Or Pain) olanzapine 15 mg tablet 15 mg PO HS potassium chloride 10 mEq tablet,ER particles/crystals 10 meq PO DAILY lactulose 10 gram/15 mL solution 20 g PO DAILYP PRN (Reason: Constipation) Trelegy Ellipta 200-62.5-25 mcg blister with device 1 inh INHALATION DAILY 30 Days Qty: 60 0RF Referrals Follow up/Referrals: Provider,Referral, MD [Primary Care Provider] - See instructions Clinical Impressions Clinical Impression: Auditory hallucinations, Visual hallucinations, ADAM (acute kidney injury) Print Language Print Language: Persian Discharge ED Provider: Jad Ni General Adult HPI General Chief complaint: Psychiatric Symptoms Stated complaint: Weakness Time Seen by Provider: 12/10/24 15:04 History of Present Illness HPI narrative: Please note that above description of symptoms, in this electronic medical record under categorization of recalled from ER triage doctor by RN are reflective of an initial nursing assessment, however, is not reflective of my full history and physical exam that was personally taken and clarified. Consequentially, this preceding description of symptoms, which may include the patient's categorized chief complaint in the EMR, do not reflect my personal clinical impression, and the ultimate description of history of present illness and patient stated complaints should be deferred to this section of the note. Unless stated otherwise or congruent with this section of the note, additional signs, symptoms, or incongruence should be interpreted as inaccurate with my clinical impression. Related Data Home Medications ?Medication ?Instructions ?Recorded ?Confirmed albuterol sulfate 90 mcg/actuation 2 puff inhalation Q6HP PRN 06/25/24 11/25/24 aerosol inhaler Shortness Of Breath Or Wheezing divalproex 500 mg tablet,delayed 500 mg PO BID 06/25/24 11/25/24 release metoprolol succinate 25 mg 25 mg PO DAILY 06/25/24 11/25/24 tablet,extended release 24 hr oxcarbazepine 300 mg tablet 300 mg PO BID 06/25/24 11/25/24 polyethylene glycol 3350 17 17 g PO DAILY 06/25/24 11/25/24 gram/dose oral powder acetaminophen 500 mg tablet 1,000 mg PO Q6HP PRN Fever Or Pain 10/26/24 11/25/24 aluminum hydrox-magnesium carb 95 30 ml PO Q6HP PRN Indigestion 10/26/24 11/25/24 mg-358 mg/15 mL oral suspension (Acid Gone Antacid) amantadine HCl 100 mg tablet 100 mg PO BID 10/26/24 11/25/24 lactulose 10 gram/15 mL oral 20 g PO DAILYP PRN Constipation 10/26/24 11/25/24 solution olanzapine 15 mg tablet 15 mg PO HS 10/26/24 11/25/24 potassium chloride 10 mEq 10 meq PO DAILY 10/26/24 11/25/24 tablet,extended release(part/cryst) buspirone 5 mg tablet 5 mg PO TID 11/04/24 11/25/24 fluticasone propionate 50 intranasal 11/09/24 11/25/24 mcg/actuation nasal spray,suspension famotidine 40 mg tablet 40 mg PO HS 11/25/24 11/25/24 furosemide 40 mg tablet 40 mg PO DAILY 11/25/24 11/25/24 loratadine 10 mg tablet 10 mg PO DAILY 11/25/24 11/25/24 magnesium oxide 400 mg PO DAILY 11/25/24 11/25/24 melatonin 5 mg tablet 5 mg PO HS 11/25/24 11/25/24 mirabegron 25 mg tablet,extended 25 mg PO 11/25/24 11/25/24 release 24 hr mirtazapine 7.5 mg tablet 7.5 mg PO DAILY 11/25/24 11/25/24 vibegron 75 mg tablet (Gemtesa) 75 mg PO DAILY 11/25/24 11/25/24 Previous Rx's ?Medication ?Instructions ?Recorded fluticasone fur. 200 mcg-umeclid 1 inh inhalation DAILY 30 days #60 10/28/24 62.5 mcg-vilant 25 mcg ea inhalat.powder (Trelegy Ellipta) Allergies Allergy/AdvReac Type Severity Reaction Status Date / Time No Known Allergies Allergy Verified 11/25/24 13:48 [facility] Disclaimer: The information contained in this section may have been updated after the patient was seen, as this information can be updated by other users. Medical History Personal history of malignant carcinoid tumor of bronchus and lung Chronic respiratory failure with hypoxia Dyspnea on exertion History of smoking 30 or more pack years Pulmonary emphysema COPD (chronic obstructive pulmonary disease) COPD exacerbation Pancreatitis GERD (gastroesophageal reflux disease) Rhinitis CHF (congestive heart failure) Hypertension Insomnia Bipolar disorder Schizo affective schizophrenia Weakness Fatigue Respiratory failure with hypoxia Social History Smoking Status: Unknown if ever smoked alcohol intake: never current occupational status: other Travel in the last 8 weeks: None Have you lived/traveled outside [place] in past 30 days?: No Contact w/someone who lives/traveled outside [place] past 30 days?: No Exposure to someone with infectious disease in past 14 days?: No Do you have a fever (greater than 100.4 F or 38 C)?: No Have you tested positive for COVID-19: No Exposed to someone with COVID-19 in past 14 days?: No Do you have a sore throat?: No Do you have a cough?: No Do you have any weakness?: No Do you have any diarrhea?: No Are you experiencing any unusual bleeding?: No Do you have any muscle aches/pain?: No Do you have any abdominal pain?: No Are you experiencing loss of taste or smell?: No Other Medical History Have you received the Flu Vaccine for this season: No Have you received the Pneumonia Vaccine: Yes ROS Obtained: Yes All systems reviewed & no additional complaints except as documented Physical Exam General General appearance: alert, in no apparent distress and other (Appears to be responding to internal stimuli) Head Head exam: atraumatic and normocephalic Eye Eye exam: Present normal appearance, PERRL and EOMI Neck Neck exam: Present normal inspection, full ROM and trachea midline Respiratory Respiratory exam: Present normal lung sounds bilaterally; Absent respiratory distress, wheezes, stridor, accessory muscle use or prolonged expiratory phase Cardiovascular Cardiovascular exam: Present regular rate, normal rhythm, normal heart sounds and other (Pulses equal symmetric in upper and lower extremities) Abdominal Exam Abdominal exam: Present soft and tenderness; Absent distention, guarding, rebound or pulsatile mass Extremities Exam Extremities exam: Absent edema Neurological Exam Neurological exam: Present alert, oriented X3 and CN II-XII intact; Absent motor sensory deficit Skin Skin exam: Present warm and dry; Absent diaphoresis or erythema Medical Decision Making Medical Records Medical records reviewed: Yes I reviewed the patient's medical records. Screening: Per USPSTF and CDC recommendations, given the prevalence of disease in our region, it is our hospital?s policy to screen for HIV and viral Hepatitis for all patients aged 18 and over and those with ongoing risk factors. [place] Inquiry Pt receiving controlled substance: No Emery was queried for this patient: No Vital Signs: 12/10/24 15:12 12/10/24 15:37 12/10/24 17:01 Temperature 98.5 F Temperature Source Oral Pulse Rate 82 63 Pulse Rate [Left] 82 Respiratory Rate 16 14 Blood Pressure 183/128 H 137/84 Blood Pressure [Right Arm] 155/98 H Blood Pressure Mean 97 Blood Pressure Mean [Right Arm] 117 Blood Pressure Source [Right Arm] Automatic Cuff Blood Pressure Position [Right Arm] Sitting 02 Sat by Pulse Oximetry 99 98 100 Oxygen Delivery Method Room Air Nasal Cannula Oxygen Flow Rate (LPM) 3 Lab Data Lab Results 12/10/24 15:04: WBC 8.1, RBC 4.85, Hgb 15.0, Hct 45.7, MCV 94.2 H, MCH 30.9, MCHC 32.8, RDW 14.6, Plt Count 291, MPV 9.8, Neut % (Auto) 56.2, Lymph % (Auto) 22.6, [place] % (Auto) 12.1 H, Eos % (Auto) 7.0, Baso % (Auto) 1.1, Neut # (Auto) 4.6, Lymph # (Auto) 1.8, [place] # (Auto) 1.0, Eos # (Auto) 0.6 H, Baso # (Auto) 0.1, PT 11.1, INR 0.99, APTT 30.5, Sodium 141, Potassium 4.1, Chloride 94 L, Carbon Dioxide 39 H, Anion Gap 12.1, BUN 27 H, Creatinine 1.80 H, Estimated GFR 38 L, Est GFR ( Amer) 45 L, Glucose 116 H, Calcium 9.3, Magnesium 2.3, Total Bilirubin 0.6, AST 33, ALT 14, Alkaline Phosphatase 70, Total Creatine Kinase 57, Troponin I < 0.01, Total Protein 8.0, Albumin 4.3, Globulin 3.7 H, Albumin/Globulin Ratio 1.2, Lipase 31, Procalcitonin 0.088, TSH 1.76, Thyroxine (T4) 9.1 12/10/24 15:54: VBG pH 7.42 H, VBG pCO2 51.2 H, VBG pO2 51.2 H, VBG HCO3 32.5 H, VBG Total CO2 34.0 H, VBG O2 Saturation 85.6 H, VBG Base Excess 8.0 H, VBG Lactic Acid 2.0 12/10/24 16:40: Urine Color Yellow, Urine Appearance Clear, Urine pH 7.5, Ur Specific [place] 1.010, Urine Protein Negative, Urine Glucose (UA) Negative, Urine Ketones Negative, Urine Blood Trace-l, Urine Nitrate Negative, Urine Bilirubin Negative, Urine Urobilinogen 0.2, Ur Leukocyte Esterase Negative 12/10/24 15:04 12/10/24 15:04 Orders (Tests/Meds): ED MEDICATIONS Generic Name Dose Route Start Last Admin Trade Name Freq PRN Reason Stop Dose Admin Lactated Ringer's 2,330 mls @ 1,165 mls/hr 12/10/24 15:58 12/10/24 16:07 Lactated Ringer's 1000 Ml Bag 30 ml/kg infuse over 2 hr (2330 ml) 12/10/24 17:57 1,165 mls/hr IV Administration .Q2H ONE Discontinued Medications Generic Name Dose Route Start Last Admin Trade Name Kaela PRN Reason Stop Dose Admin Haloperidol Lactate 2.5 mg 12/10/24 15:20 12/10/24 15:44 Haloperidol Lactate 5 Mg/Ml Vial IV 12/10/24 15:21 2.5 mg ONCE ONE Administration Iopamidol 155 ml 12/10/24 16:13 12/10/24 16:14 Iopamidol-370 (76%);100ml Bottle IV 12/10/24 16:14 155 ml ONCE ONE Administration Sodium Chloride 10 ml 12/10/24 16:13 12/10/24 16:14 Sodium Chloride 0.9% 10ml Syr (Rad Only) IV 12/10/24 16:14 10 ml ONCE ONE Administration Sodium Chloride 50 ml 12/10/24 16:13 12/10/24 16:14 0.9 % Sodium Chloride 50 Ml Vial IV 12/10/24 16:14 50 ml ONCE ONE Administration ORDERS Category Date Time Status CT abdomen pelvis w con Stat Cat Scan 12/10/24 15:[address] angio head Stat Cat Scan 12/10/24 15:[address] angio neck Stat Cat Scan 12/10/24 15:[address] chest w con Stat Cat Scan 12/10/24 15:[address] head/brain wo con Stat Cat Scan 12/10/24 15:12 Completed XR chest portable Stat Exams 12/10/24 15:12 Completed CK [Creatine Kinase] Stat Lab 12/10/24 15:04 Completed Complete Blood Count Auto Diff Stat Lab 12/10/24 15:04 Completed Comprehensive Metabolic Panel Stat Lab 12/10/24 15:04 Completed HIV Combo Stat Lab 12/10/24 15:43 Ordered Hepatitis C Ab Qual. W/ RFX Stat Lab 12/10/24 15:43 Ordered Lipase Stat Lab 12/10/24 15:04 Completed Magnesium Stat Lab 12/10/24 15:04 Completed PT INR [Prothrombin Time INR] Stat Lab 12/10/24 15:04 Completed PTT [Activated Partial Thrombo Time] Stat Lab 12/10/24 15:04 Completed Procalcitonin Stat Lab 12/10/24 15:04 Completed T4 (Thyroxine) Stat Lab 12/10/24 15:04 Completed TSH [Thyroid Stimulating Hormone] Stat Lab 12/10/24 15:04 Completed Troponin I Q3H Lab 12/10/24 18:15 Ordered Troponin I Q3H Lab 12/10/24 21:15 Ordered Troponin I Stat Lab 12/10/24 15:04 Completed UA [Urinalysis and Microscopic] Stat Lab 12/10/24 16:40 Results Blood Culture Stat Micro 12/10/24 15:54 Received Venous Blood Gas Stat RT 12/10/24 15:54 Completed Medical Decision Narrative: This is a 69-year-old male history of hypertension, hyperlipidemia, schizoaffective disorder, COPD not currently smoking but on 2 to 3 L nasal cannula chronically, carcinoid tumor, presenting with altered mental status. Allegedly, per nursing facility, patient was normal yesterday, 12/09. Today, patient was responding to internal stimuli, having visual and auditory hallucinations, stating that he is seeing people, animals, etc. Brought in for further evaluation by EMS. Patient denies headache, vision changes, nausea, vomiting, fevers, chills, chest pain, shortness of breath, but does state that he has had some lower abdominal pain. Last bowel movement was 2 days ago and this is normal for him. Urinating without issue. He does state that he is shaking more than usual, this is not typical for him. Denies any other symptoms. History was obtained via conversation with patient, EMS. On arrival, patient hemodynamically stable, alert, oriented to person and place, [appropriate, ]GCS [15], moving all extremities spontaneously, pupils equal and reactive to light. Full physical exam performed and significant for chronically ill-appearing male no acute distress. Falling asleep intermittently. Patient's lungs are clear, cardiac exam with without murmurs gallops or rubs. No lower extremity edema. Patient following commands, but does appear to have mild, jerking movements. He states these are abnormal. Speaking in full sentences with mild dysarthria. Abdomen soft, minimally tender in suprapubic area with no overlying skin changes. No signs of peritonitis.. Differential includes medication noncompliance, sepsis, pneumonia, urinary tract infection, overdose, intoxication, withdrawal, metabolic abnormality, endocrinologic abnormality, progression of carcinoid syndrome, progression of psychiatric disease, among others. Patient placed on continuous cardiac monitoring and continuous pulse ox with initial blood pressure 155/98, heart rate 82, saturation 99% on 2 L nasal cannula. [Independent interpretation of EKG shows] sinus rhythm 82 bpm with largely nondiagnostic baseline, but no obvious acute ischemic change. SD 196, QRS 89, QTc 430. Normal axis. Patient was given fluids and 2.5 mg Haldol given active hallucinations for symptomatic management[ and correction of underlying abnormalities]. Workup independently interpreted and significant for nonactionable CBC. chemistry with normal LFTs, but ADAM with creatinine 1.8 and BUN 27. VBG with metabolic alkalosis pH 7.42, CO2 51, bicarb 32 with normal lactate. Urinalysis without concern for UTI. Troponin negative. Lipase and procalcitonin also negative as well as thyroid studies. On independent interpretation of imaging, no intracranial hemorrhage or stroke pathology. No acute abnormality in the chest other than nodules. Abdomen and pelvis with dilation of biliary ducts, but normal LFTs, likely chronic. Patient also has moderate amount of constipation see radiology read for full review of final results. On reevaluation, patient's hallucinations have improved with Haldol. Given patient presentation, workup, history, this most likely represents ADAM, altered mental status, this could be secondary to changes in metabolism secondary to dehydration and ADAM, unsure. Hospital medicine was contacted and interactive discussion was guided, patient to be admitted for further definitive management Corrugated Fastener Driver disclaimer Much of this encounter note is an electronic needle loom operator helper spoken language to printed text. Electronic needle loom operator helper of the spoken language may permit errors. Although I have reviewed the note, some errors may still exist. Critical Care Critical Care Time Critical Care Time: No
--- NOTE | 2024-12-10 15:43 | CT_ITS ---
PROCEDURE INFORMATION: Exam: CT Abdomen And Pelvis With Contrast Exam date and time: 12/10/2024 4:13 PM Age: 69 years old Clinical indication: Abdominal pain; Additional info: Suprapubic pain TECHNIQUE: Imaging protocol: Computed tomography of the abdomen and pelvis with contrast. Radiation optimization: All CT scans at this facility use at least one of these dose optimization techniques: automated exposure control; mA and/or kV adjustment per patient size (includes targeted exams where dose is matched to clinical indication); or iterative reconstruction. Contrast material: ISOVUE; Contrast volume: 75 ml; Contrast route: IV; COMPARISON: CT ABDOMEN PELVIS W CON 11/15/2024 9:24 AM FINDINGS: Lungs: Lung bases are clear. Liver: Unremarkable. Gallbladder and biliary ducts: Cholecystectomy. Dilated extrahepatic CBD measuring up to 16 mm and previously measured [address] of 11/15/2024. Associated moderately dilated intrahepatic bile ducts also increased in the interval. Pancreas: Normal. No ductal dilation. Spleen: Normal. No splenomegaly. Adrenal glands: Normal. No mass. Kidneys and ureters: Subcentimeter low-density lesions are noted in both kidneys too small to characterize but likely cysts. No follow-up advised. Kidneys and ureters otherwise unremarkable with no obstructing stones or uropathy. Stomach and bowel: Moderate amount of fecal material throughout the colon suggesting constipation. Some scattered fluid distended small bowel loops are noted. GI tract structures otherwise unremarkable with no evident wall thickening allowing for incomplete distention. Appendix: Appendix is normal. No evidence of appendicitis. Intraperitoneal space: Unremarkable. No free air. No significant fluid collection. Vasculature: Unremarkable. No abdominal aortic aneurysm. Lymph nodes: Unremarkable. No enlarged lymph nodes. Urinary bladder: Unremarkable as visualized. Reproductive: Unremarkable as visualized. Bones/joints: Bony structures intact. No suspicious lytic or blastic lesions seen. Soft tissues: Unremarkable. IMPRESSION: 1. Fluid distended small bowel loops noted that may be associated with gastroenteritis in the proper clinical setting. 2. Constipation. 3. Moderately dilated extrahepatic and intrahepatic bile ducts with interval worsening since recent CT. Findings may be partly related to prior cholecystectomy but given the interval worsening the possibility of a developing occult obstructing process at the ampulla can not be excluded. Further workup and follow-up may be indicated. COMMENTS: Consistent with the [employer]'s Incidental Findings Committee white paper (J Am Carlee Radiol 2018): Any incidental renal lesion less than 1 cm or classified as too small to characterize, or any incidental cystic renal lesion characterized as simple-appearing, is likely benign. No follow-up imaging is recommended for these lesions per consensus recommendations based on imaging criteria.
[2024-12-10] MEDS: HALOPERIDOL LACTATE 5 MG/ML VIAL 2.5 MG IV (15:44)
[2024-12-10 15:45] LABS: Lipase 31 U/L (23-300); Magnesium 2.3 mg/dl (1.6-2.3)
--- NOTE | 2024-12-10 15:52 | CT_ITS ---
PROCEDURE INFORMATION: Exam: CT Chest With Contrast; Diagnostic Exam date and time: 12/10/2024 4:13 PM Age: 69 years old Clinical indication: Other: Screen for progression of disease. Additional history provided by with Dr. Davis patient with unexplained confusion and hallucinations and clonus in remote history of pulmonary carcinoid. TECHNIQUE: Imaging protocol: Diagnostic computed tomography of the chest with contrast. Radiation optimization: All CT scans at this facility use at least one of these dose optimization techniques: automated exposure control; mA and/or kV adjustment per patient size (includes targeted exams where dose is matched to clinical indication); or iterative reconstruction. Contrast material: ISOVUE; Contrast volume: 75 ml; Contrast route: IV; Other technique: Hello COMPARISON: CT CHEST W CON 11/15/2024 9:24 AM FINDINGS: Lungs: Interval development of a bandlike opacity in the superolateral right upper lobe since recent CT of 11/15/2024 compatible with atelectasis. Multiple bandlike opacity seen in the left mid to lower lung streeter compatible with fibro atelectatic changes. Emphysematous changes are noted. Lungs are otherwise clear. Pleural spaces: Unremarkable. No pneumothorax. No pleural effusion. Heart: Unremarkable. No cardiomegaly. No pericardial effusion. Coronary arteries: Mild coronary artery calcifications are noted. Lymph nodes: Unremarkable. No enlarged lymph nodes. Vasculature: Unremarkable. No aortic aneurysm. Bones/joints: Bony structures intact. No suspicious lytic or blastic lesions seen. Soft tissues: Unremarkable. IMPRESSION: 1. Interval development of mild atelectasis in the superolateral right upper lobe. No other acute abnormalities. 2. Emphysematous changes and left-sided fibro atelectatic change. 3. No definite metastatic disease. COMMENTS: The presence of pulmonary emphysema on CT is an independent risk factor for lung cancer. In the absence of a history or active diagnosis of lung cancer, it is recommended that this patient with emphysema be evaluated for enrollment in a low dose CT lung cancer screening program.
[2024-12-10 16:00] LABS: VBG HCO3 32.5 mmol/L (23-30); VBG Oxygen Saturation 85.6 % (50-70); VBG PCO2 51.2 mmol/L (35-51); VBG PH 7.42 mmol/L (7.31-7.41); VBG PO2 51.2 mmol/L (28-40)
--- NOTE | 2024-12-10 16:00 | PC.NURSE ---
PT IS AT CT SCAN
[2024-12-10 16:04] LABS: Procalcitonin 0.088 ng/mL (0.0-2.0); T4 (Thyroxine) 9.1 ug/dl (5.53-11.0)
[2024-12-10] MEDS: LACTATED RINGERS 1000ML 2,330 ML 1165 ML IV (16:07)
[2024-12-10 16:09] LABS: Troponin I < 0.01 ng/ml (0.00-0.034)
[2024-12-10] MEDS: IOPAMIDOL-370 (76%);100ML BOTTLE 155 ML IV (16:14)
[2024-12-10] MEDS: SODIUM CHLORIDE 0.9% 10ML SYR (RAD ONLY) 10 ML IV (16:14)
[2024-12-10] MEDS: 0.9 % SODIUM CHLORIDE 50 ML VIAL IV (16:14)
[2024-12-10 16:17] LABS: Thyroid Stimulating Hormone 1.76 uIU/mL (0.465-4.68)
[2024-12-10 16:42] LABS: Microscopic, Urine URINE MICROSCOPIC (MICROSCOPIC)
[2024-12-10 16:48] LABS: Appearance,Urine CLEAR (Clear); Bilirubin,Urine Negative (Negative); Blood, Urine TRACE-L (Negative); Color,Urine YELLOW (Yellow); Glucose,Urine (UA) Negative (Negative); Ketones,Urine Negative (Negative); Leukocyte Esterase,Urine Negative (Negative); Nitrate,Urine Negative (Negative); PH,Urine 7.5 (5.0-8.5); Protein,Urine Negative (Negative); Urobilinogen,Urine 0.2 EU/dl (0.2)
[2024-12-10 17:34] LABS: Squamous Epithelial Cell,Urine Occasional #/hpf (0-5)
[2024-12-10 17:35] LABS: Bacteria,Urine Trace /lpf
[2024-12-10 17:36] LABS: Amorphous Sediment,Urine 3+ /lpf
--- NOTE | 2024-12-10 18:41 | PC.NURSE ---
called report to Trevin MARSH
--- NOTE | 2024-12-10 18:58 | PC.NURSE ---
Patient arrived to floor via stretcher from ED at 18:55.
--- NOTE | 2024-12-10 19:00 | P.HP_ITS ---
History of Present Illness *History of present illness: Devin Pierre is a 69-year-old male with a medical history significant for COPD, exercise intolerance (stress test being scheduled by cardiology), carcinoid tumor, previous orange agent exposure, schizoid disorder who presented with apparent alteration in mental status, hallucinations. On my evaluation, patient was very pleasant and states he has been having intermittent hallucinations for a long time but never bothersome. He states he feels dehydrated, constipated ongoing for about a couple days. Workup in the ED significant for creatinine 1.8 (baseline 1.0). Case discussed with ED provider and decision was made to admit patient for generalized weakness, ADAM. [facility] Disclaimer: The information contained in this section may have been updated after the patient was seen, as this information can be updated by other users. Medical History (Updated 12/10/24 @ 21:38 by Bruna Franco RN) Falls frequently Muscle weakness (generalized) Pneumonia Personal history of malignant carcinoid tumor of bronchus and lung Chronic respiratory failure with hypoxia Dyspnea on exertion History of smoking 30 or more pack years Pulmonary emphysema COPD exacerbation Pancreatitis GERD (gastroesophageal reflux disease) COPD (chronic obstructive pulmonary disease) Rhinitis CHF (congestive heart failure) Hypertension Insomnia Bipolar disorder Schizo affective schizophrenia Weakness Fatigue Respiratory failure with hypoxia Social History (Updated 12/10/24 @ 21:39 by Bruna Franco RN) Smoking Status: Unknown if ever smoked alcohol intake: never current occupational status: disabled Travel in the last 8 weeks: None Have you lived/traveled outside [place] in past 30 days?: No Contact w/someone who lives/traveled outside US past 30 days?: No Exposure to someone with infectious disease in past 14 days?: No Do you have a fever (greater than 100.4 F or 38 C)?: No Have you tested positive for COVID-19: No Exposed to someone with COVID-19 in past 14 days?: No Do you have a sore throat?: No Do you have a cough?: No Do you have any weakness?: No Are you experiencing any nausea/vomitting?: No Do you have any diarrhea?: No Are you experiencing any unusual bleeding?: No Do you have any muscle aches/pain?: No Do you have any abdominal pain?: No Are you experiencing loss of taste or smell?: No Other Medical History Have you received the Flu Vaccine for this season: No Have you received the Pneumonia Vaccine: Yes Meds Home Medications and Allergies Home Medications ?Medication ?Instructions ?Recorded ?Confirmed ?Type albuterol sulfate 90 mcg/actuation 2 puff inhalation Q6HP PRN 06/25/24 12/10/24 History aerosol inhaler Shortness Of Breath Or Wheezing divalproex 500 mg tablet,delayed 500 mg PO BID 06/25/24 12/10/24 History release metoprolol succinate 25 mg 25 mg PO DAILY 06/25/24 12/10/24 History tablet,extended release 24 hr oxcarbazepine 300 mg tablet 300 mg PO BID 06/25/24 12/10/24 History polyethylene glycol 3350 17 17 g PO DAILY 06/25/24 12/10/24 History gram/dose oral powder acetaminophen 500 mg tablet 1,000 mg PO Q6HP PRN Fever Or Pain 10/26/24 12/10/24 History amantadine HCl 100 mg tablet 100 mg PO BID 10/26/24 12/10/24 History lactulose 10 gram/15 mL oral 30 ml PO DAILYP PRN Constipation 10/26/24 12/10/24 History solution olanzapine 15 mg tablet 15 mg PO HS 10/26/24 12/10/24 History potassium chloride 10 mEq 10 meq PO DAILY 10/26/24 12/10/24 History tablet,extended release(part/cryst) fluticasone fur. 200 mcg-umeclid 1 inh inhalation DAILY 30 days #60 10/28/24 12/10/24 Rx 62.5 mcg-vilant 25 mcg ea inhalat.powder (Trelegy Ellipta) buspirone 5 mg tablet 5 mg PO TID 11/04/24 12/10/24 History fluticasone propionate 50 1 spray intranasal DAILY 11/09/24 12/10/24 History mcg/actuation nasal spray,suspension famotidine 40 mg tablet 40 mg PO HS 11/25/24 12/10/24 History loratadine 10 mg tablet 10 mg PO DAILY 11/25/24 12/10/24 History magnesium oxide 400 mg PO DAILY 11/25/24 12/10/24 History aluminum hydrox-magnesium carb 95 30 ml PO DAILYP PRN Acid Reflux 12/10/24 12/11/24 History mg-358 mg/15 mL oral suspension ipratropium 0.5 mg-albuterol 3 mg 3 ml inhalation Q6 PRN SOA 12/10/24 12/10/24 History (2.5 mg base)/3 mL nebulization soln furosemide 20 mg tablet 20 mg PO DAILY 12/11/24 12/11/24 History New Prescriptions to Start Prescriptions: Allergies Allergy/AdvReac Type Severity Reaction Status Date / Time No Known Allergies Allergy Verified 11/25/24 13:48 Exam Data for Last 24 hours Vital signs and Labs for Last 24 Hours: Temp Pulse Resp BP Pulse Ox O2 Del Method O2 Flow Rate 97.8 F 75 20 148/92 H 100 Nasal Cannula 3 12/10/24 18:55 12/10/24 18:55 12/10/24 18:55 12/10/24 18:55 12/10/24 18:31 12/10/24 18:55 12/10/24 18:55 Laboratory Results - last 24 hr 12/10/24 15:04: WBC 8.1, RBC 4.85, Hgb 15.0, Hct 45.7, MCV 94.2 H, MCH 30.9, MCHC 32.8, RDW 14.6, Plt Count 291, MPV 9.8, Neut % (Auto) 56.2, Lymph % (Auto) 22.6, [place] % (Auto) 12.1 H, Eos % (Auto) 7.0, Baso % (Auto) 1.1, Neut # (Auto) 4.6, Lymph # (Auto) 1.8, [place] # (Auto) 1.0, Eos # (Auto) 0.6 H, Baso # (Auto) 0.1, PT 11.1, INR 0.99, APTT 30.5, Sodium 141, Potassium 4.1, Chloride 94 L, Carbon Dioxide 39 H, Anion Gap 12.1, BUN 27 H, Creatinine 1.80 H, Estimated GFR 38 L, Est GFR ( Amer) 45 L, Glucose 116 H, Calcium 9.3, Magnesium 2.3, Total Bilirubin 0.6, AST 33, ALT 14, Alkaline Phosphatase 70, Total Creatine Kinase 57, Troponin I < 0.01, Total Protein 8.0, Albumin 4.3, Globulin 3.7 H, Albumin/Globulin Ratio 1.2, Lipase 31, Procalcitonin 0.088, TSH 1.76, Thyroxine (T4) 9.1 12/10/24 15:54: VBG pH 7.42 H, VBG pCO2 51.2 H, VBG pO2 51.2 H, VBG HCO3 32.5 H, VBG Total CO2 34.0 H, VBG O2 Saturation 85.6 H, VBG Base Excess 8.0 H, VBG Lactic Acid 2.0 12/10/24 16:40: Urine Color Yellow, Urine Appearance Clear, Urine pH 7.5, Ur Specific [place] 1.010, Urine Protein Negative, Urine Glucose (UA) Negative, Urine Ketones Negative, Urine Blood Trace-l, Urine Nitrate Negative, Urine Bilirubin Negative, Urine Urobilinogen 0.2, Ur Leukocyte Esterase Negative, Urine RBC None, Urine WBC 3-5, Ur Squamous Epith Cells Occasional, Ur Transition Epith Cell 10-20, Ur Renal Epithelial Cell 3-5, Amorphous Sediment 3+, Urine Bacteria Trace, Hyaline Casts 3-5 I & O for Last 24 hours: Intake & Output 12/07/24 12/08/24 12/09/24 12/10/24 23:59 23:59 23:59 23:59 Weight 89.358 kg Constitutional Constitutional: no acute distress *Routine HEENT Exam Head: Present normocephalic Eye: Present EOMI and PERRL ENT: Present mucous membranes moist *Routine Neck Exam Neck: Present supple; Absent lymphadenopathy *Routine Respiratory Exam Respiratory: Present wheezes; Absent CTA bilaterally *Routine Cardiovascular Exam Cardiovascular: Present RRR *Routine Abdominal Exam Abdominal: Present soft and normoactive bowel sounds; Absent tenderness *Routine Rectal Exam Rectal:: deferred *Routine Genitalia Exam Genitalia:: deferred *Routine Extremities Exam Extremities: Absent cyanosis, clubbing or edema *Routine Skin Exam Skin: Present warm; Absent rash *Routine Neurological Exam Neurological: Present alert Assessment and Plan *Assessment and plan (1) ADAM (acute kidney injury): Status: Acute Category: Medical Code(s): N17.9 - Acute kidney failure, unspecified Plan Devin Pierre is a 69-year-old male with a medical history significant for COPD, exercise intolerance (stress test being scheduled by cardiology), carcinoid tumor, previous orange agent exposure, schizoid disorder who presented with apparent alteration in mental status, hallucinations. On my evaluation, patient was very pleasant and states he has been having intermittent hallucin ations for a long time but never bothersome. He states he feels dehydrated, constipated ongoing for about a couple days. Workup in the ED significant for creatinine 1.8 (baseline 1.0). Case discussed with ED provider and decision was made to admit patient for generalized weakness, ADAM. #Generalized weakness #ADAM #Fecal impaction ? Initial creatinine 1.8, baseline 1.0. CT abdomen/pelvis indicates constipation, no bowel movement in a few days. ? Continue LR at 100 L/h. Given 1 L LR bolus in the ED. ? MiraLAX twice daily, bisacodyl daily. ? Patient is a resident at [facility]. #Odontogenic abscess ? Incidental finding on CT. ? Started IV Unasyn. #Dyspnea on exertion, exercise intolerance #COPD ? Longstanding issue of dyspnea on exertion, progressively worse over the past few months. Former smoker. ? Cardiology recently evaluated, pending Lexiscan scheduling. Has had intermittent chest pains. Troponin is normal here. No chest pain right now. ? Continue home Trelegy 100, DuoNebs as needed. #Mood disorder ? Resume home Depakote, Zyprexa, oxcarbazepine. #Overactive bladder ? Resume home Gemtesa Full code DVT prophylaxis: Lovenox 40 mg
[2024-12-10 19:13] LABS: Troponin I < 0.01 ng/ml (0.00-0.034)
[2024-12-10] MEDS: POLYETHYLENE GLYCOL 3350 17 GM PACKET PO (20:06)
[2024-12-10] MEDS: OXcarbazepine 300MG TABLET 300 MG PO (20:07)
[2024-12-10] MEDS: DIVALPROEX 500MG (Delayed-Release) TABLET 500 MG PO (20:10)
[2024-12-10] MEDS: BUSPIRONE HCL 5 MG TABLET PO (20:10)
[2024-12-10] MEDS: OLANZAPINE 15 MG 15 EACH PO (20:11)
[2024-12-10 20:40] LABS: Hepatitis C Ab Qual. W/ RFX NEGATIVE (Negative)
[2024-12-10 21:12] LABS: HIV Combo NEGATIVE (Negative)
--- NOTE | 2024-12-10 21:51 | PC.NURSE ---
Med rec completed based on patient medical record from [facility].
[2024-12-10 21:58] LABS: Troponin I < 0.01 ng/ml (0.00-0.034)
[2024-12-10] MEDS: LACTATED RINGERS 1000ML 1,000 ML 100 ML IV (22:03)
[2024-12-10] MEDS: AMPICILLIN/SULBACTAM 1.5 GM in 0.9 % SODIUM CHLORIDE 50 ML IV (22:04)
[2024-12-11] MEDS: AMPICILLIN/SULBACTAM 1.5 GM in 0.9 % SODIUM CHLORIDE 50 ML IV ×3 (02:49→14:30)
--- NOTE | 2024-12-11 03:25 | PC.NURSE ---
Pt alert and oriented with occasional hallucinations. He was started on LR @100 mL/hr and unasyn. Pt received miralax for constipation. 20 R FA and 20 L AC. Pt has continually denied pain or any additional issues. Pt is on 3L O2. Respirations even and unlabored. Resting in low, locked bed with call light in reach.
[2024-12-11 04:00] VITALS: BP 136/70; PULSE 70; RESP 17; TEMP 36.1; O2SAT 100; BMI 25.2
[2024-12-11 04:23] LABS: POC Glucose,Bedside 94 (70-110)
[2024-12-11 04:42] LABS: Basophils # 0.1 K/mm3 (0-0.2); Eosinophils # 0.5 K/mm3 (0.0-0.4); Eosinophils % 6.4 % (0.1-12.0); Hematocrit 39.2 % (42.0-52.0); Lymphocytes # 2.1 K/mm3 (0.7-4.5); Lymphocytes % 29.1 % (10-50); Mean Corpuscular HGB Conc 32.7 g/dL (31.8-35.4); Mean Corpuscular Hemoglobin 31.1 pg (27.0-31.2); Mean Corpuscular Volume 95.4 fl (80-94); Mean Platelet Volume 9.7 fl (7.4-10.4); Monocytes % 13.3 % (1.7-9.3); Neutrophils # 3.6 K/mm3 (1.8-7.8); Neutrophils % 49.6 % (37.0-80.0); Nucleated Red Blood Cells # 0 10^3/uL; Nucleated Red Blood Cells % 0 %; Platelet Count 228 K/mm3 (142-424); Red Blood Count 4.11 M/mm3 (4.60-6.20); Red Cell Distribution Width 14.8 % (11.5-17.5); Red Cell Distribution Width-SD 52.3 fL; White Blood Count 7.2 K/mm3 (4.8-10.8)
[2024-12-11 04:45] LABS: Albumin Level 3.5 g/dl (3.5-5.0); Chloride 99 mmol/L (98-107); Potassium 3.8 mmoL/L (3.5-5.1); Sodium 142 mmol/L (136-145)
[2024-12-11 04:47] LABS: Alanine Aminotransferase 12 U/L (12-78); Aspartate Amino Transferase 20 U/L (17-59); Blood Urea Nitrogen 22 mg/dl (9-20); Creatinine Clearance Estimated 60 mL/min (50-200); Estimated Glomerular Filt Rate 50 ml/min (>60); GFR (African American) 61 ML/MIN (>60); Hemoglobin 12.8 g/dL (14.1-18.0)
[2024-12-11 04:48] LABS: Albumin/Globulin Ratio 1.3 (1.1-1.8); Alkaline Phosphatase 75 U/L (38-126); Anion Gap 10.8 mEq/L (5-15); Bilirubin,Total 0.4 mg/dl (0.2-1.3); Calcium 8.9 mg/dl (8.4-10.2); Carbon Dioxide 36 mmol/L (22.0-30.0); Cholesterol 180 mg/dl (140-200); Globulin 2.8 g/dL (1.3-3.2); Glucose 80 mg/dl (74-100); HDL Cholesterol 45 mg/dl (40-60); Total Protein,Serum 6.3 g/dl (6.3-8.2); Triglycerides 116 mg/dl (30-150); VLDL Cholesterol 23 mg/dL (0-40)
[2024-12-11 04:51] LABS: Ammonia 21 umol/L (9-30)
[2024-12-11 04:59] LABS: Direct LDL Cholesterol 102.67 mg/dL (100-129)
[2024-12-11 08:00] VITALS: BP 131/83; PULSE 91; RESP 16; TEMP 36.6; O2SAT 100
[2024-12-11] MEDS: FLUTICASONE/UMECLIDIN/VILANTER 200/62.5/25MCG INHALER 1 PUFF IH (09:08)
[2024-12-11 09:55] LABS: Vitamin B12 444 pg/mL (239-931)
[2024-12-11 10:12] LABS: Folate 6.94 ng/mL
--- NOTE | 2024-12-11 10:13 | P.CONPHA_ITS ---
Pharmacy Intervention Comments: MEDICATION RECONCILIATION COMPLETED ON PATIENT USING MAR FROM INTERMEDIATE. -SUNIL GALLAGHER, NORAHD
--- NOTE | 2024-12-11 10:13 | HMH.PHAINT1 ---
Pharmacy Intervention Comments: MEDICATION RECONCILIATION COMPLETED ON PATIENT USING MAR FROM LONG TERM. -SUNIL GALLAGHER, NORAHD
[2024-12-11 10:34] LABS: Iron 113 ug/dL (49-181)
[2024-12-11] MEDS: OXcarbazepine 300MG TABLET 300 MG PO (10:46)
[2024-12-11] MEDS: DOCUSATE SODIUM 100 MG CAPSULE PO (10:46)
[2024-12-11] MEDS: DIVALPROEX 500MG (Delayed-Release) TABLET 500 MG PO (10:46)
[2024-12-11] MEDS: POLYETHYLENE GLYCOL 3350 17 GM PACKET PO (10:46)
[2024-12-11] MEDS: METOPROLOL SUCCINATE XL 25MG TABLET 25 MG PO (10:46)
[2024-12-11] MEDS: BUSPIRONE HCL 5 MG TABLET PO ×2 (10:46→13:35)
[2024-12-11 10:48] LABS: Total Iron Binding Capacity 297 ug/dL (261-462)
[2024-12-11] MEDS: FOLIC ACID 1MG TABLET 1 MG PO (10:48)
[2024-12-11] MEDS: ENOXAPARIN 40MG/0.4ML SYRINGE 40 MG SUBCUT (10:48)
[2024-12-11 11:15] LABS: Ferritin 220 ng/ml (17.9-464)
[2024-12-11] MEDS: 0.9 % SODIUM CHLORIDE 1000ML 1,000 ML 999 ML IV (13:25)
--- NOTE | 2024-12-11 13:45 | HMH.PTEV ---
Physical Therapy Evaluation Rehab PT IP Evaluation Start: 12/10/24 20:55 Freq: ONCE Status: Active Protocol: Document 12/11/24 13:35 TATA (Rec: 12/11/24 13:45 TATA [id number]) Subjective/History History History Per H&P, Devin Pierre is a 69-year-old male with a medical history significant for COPD, exercise intolerance (stress test being scheduled by cardiology), carcinoid tumor, previous orange agent exposure, schizoid disorder who presented with apparent alteration in mental status, hallucinations. On my evaluation, patient was very pleasant and states he has been having intermittent hallucinations for a long time but never bothersome. He states he feels dehydrated, constipated ongoing for about a couple days. Workup in the ED significant for creatinine 1.8 (baseline 1.0). Case discussed with ED provider and decision was made to admit patient for generalized weakness, ADAM. Subjective Subjective Pt is oriented to name and place but not birthday or time . Pt is unable to provide thorough subjective history. Reports that he lived with his mother but then reports that he his mother had . Pt reports that he normally walks fine. Per NSG, pt is from a detention. [facility] How much help from another person do you currently need... Turning from your back to your side A little while in a flat bed without using bedrails? Moving from lying on back to sitting on A lot the side of a flat bed without using bedrails? Moving to and from a bed to a chair ( A lot including a wheelchair)? Standing up from a chair using your arms A lot ? (e.g., wheelchair, bedside chair) Walking in hospital room? A lot Climbing 3-5 steps with a railing? A lot Mobility Score 13 Mobility Level [facility] Mobility Calculator Mobility 4 Move to chair/ commode Rehab PT IP Eval Objective Appearance Patient Behavior Appropriate,Patient Baseline Patient Orientation Person,Place Difficulty following instructions mild Speech Pattern Patient Baseline Ambulation Patient Able to Ambulate No Balance Ability to Arise Unable Sitting Balance Leans or slides in chair Transfers Bed Transfer Ability Moderate x 1 (50% assist) Rehab PT IP prob,goals,plan Problems Date of Evaluation: 12/11/24 PT IP Problems Bed Mobility,Transfers,Gait, Balance,Self care,Safety Rehab Potential Rehab Potential Fair Equipment Needs Assistive Devices Rolling / Wheeled Walker Plan PT Intervention Plan Bed Mobility,Transfers,Gait, Balance,Self care,Safety, Therapeutic Exercise PT Plan Frequency Daily Duration LOS Discharge Goals Bed Transfer Ability Minimal x 1 (25% assist) Sit to Stand Chair Transfer Ability Minimal x 1 (25% assist) Ambulation Assistive Device Rolling Walker Ambulation Distance (feet) 25 Discharge Plan PT Discharge Plan PT is recommending placement upon discharge. Pt un-willing to complete OOB mobility assessment this date. Pt able to sit on EOB but become anxious and shaky and immediately requested to lie back down. Skilled PT is recommended during his acute stay. Eval Complexity Eval Charge Codes 43435 - High Complexity PHYSICIAN CERTIFICATION: I certify the specified therapy services for Devin Servin Ignacio are required, authorized, and reviewed every 30 days.
--- NOTE | 2024-12-11 14:01 | EXP.DC.SUM ---
General Admission date:: 12/10/24 HPI HPI HPI: Devin Pierre is a 69-year-old male with a medical history significant for COPD, exercise intolerance (stress test being scheduled by cardiology), carcinoid tumor, previous orange agent exposure, schizoid disorder who presented with apparent alteration in mental status, hallucinations. On my evaluation, patient was very pleasant and states he has been having intermittent hallucinations for a long time but never bothersome. He states he feels dehydrated, constipated ongoing for about a couple days. Workup in the ED significant for creatinine 1.8 (baseline 1.0). Case discussed with ED provider and decision was made to admit patient for generalized weakness, ADAM. #Generalized weakness #ADAM #Fecal impaction ? Initial creatinine 1.8, baseline 1.0. CT abdomen/pelvis indicates constipation, no bowel movement in a few days. ? Continue LR at 100 L/h. Given 1 L LR bolus in the ED. ? MiraLAX twice daily, bisacodyl daily. ? Patient is a resident at [facility]. #Odontogenic abscess ? Incidental finding on CT. ? Started IV Unasyn. #Dyspnea on exertion, exercise intolerance #COPD ? Longstanding issue of dyspnea on exertion, progressively worse over the past few months. Former smoker. ? Cardiology recently evaluated, pending Lexiscan scheduling. Has had intermittent chest pains. Troponin is normal here. No chest pain right now. ? Continue home Trelegy 100, DuoNebs as needed. #Mood disorder ? Resume home Depakote, Zyprexa, oxcarbazepine. #Overactive bladder ? Resume home Gemtesa Full code DVT prophylaxis: Lovenox 40 mg Hospital Course Hospital Course Hospital Course: Devin Pierre is a 69-year-old male with a medical history significant for COPD, exercise intolerance (stress test being scheduled by cardiology), carcinoid tumor, previous orange agent exposure, schizoid disorder who presented with apparent alteration in mental status, hallucinations. On my evaluation, patient was very pleasant and states he has been having intermittent hallucinations for a long time but never bothersome. He states he feels dehydrated, constipated ongoing for about a couple days. Workup in the ED significant for creatinine 1.8 (baseline 1.0). Case discussed with ED provider and decision was made to admit patient for generalized weakness, ADAM. #Generalized weakness #ADAM #Fecal impaction ? Initial creatinine 1.8, baseline 1.0. CT abdomen/pelvis indicates constipation, no bowel movement in a few days. ? Improved with fluid resuscitation. Patient also had a bowel movement. B12, iron studies normal. Folate low normal. ? PT evaluated, recommended SNF. However patient has Medicaid and therefore not eligible for SNF at this time. Recommend continuing physical therapy at [facility]. ? Started folic acid 1 mg daily. #Mood disorder #Schizoid disorder #Suspected extrapyramidal symptoms, tremors ? Very pleasant patient, no signs of agitation. Chronic mild intermittent hallucinations, not bothersome to patient. ? Patient is mildly tremulous on exam, possibly early extrapyramidal symptoms from Zyprexa and side effects from Depakote and oxcarbazepine. Patient also seems to be overly medicated, sedated on these medications. ? Will decrease Depakote from 500 to 250 mg twice daily, decrease oxcarbazepine from 300 to 150 mg twice daily, and decrease Zyprexa from 15 mg to 5 mg nightly. ? Depakote level pending at this time. ? Recommend following up with psychiatry. #Odontogenic abscess #Poor dentition ? Incidental finding on CT. ? Treated with IV Unasyn, discharged with Augmentin for 9 more days. ? Recommend following up with dentist. #Dyspnea on exertion, exercise intolerance #COPD ? Longstanding issue of dyspnea on exertion, progressively worse over the past few months. Former smoker. ? Cardiology recently evaluated, pending Lexiscan scheduling. Has had intermittent chest pains. Troponin is normal here. No chest pain right now. ? Continue home Trelegy 100, DuoNebs as needed. ? Started aspirin 81 mg, atorvastatin 20 mg. #Overactive bladder ? Resume home Gemtesa #History of carcinoid tumor ? Follows with Dr. Priest, oncology. Seems stable at this time. No evidence of tumor burden at this time. Total time spent on discharge: 32 minutes on chart review, counseling, documentation, and direct care with patient. Exam Data for Last 24 hours Vital signs and Labs for Last 24 Hours: Temp Pulse Resp BP Pulse Ox O2 Del Method O2 Flow Rate 97.8 F 91 H 16 131/83 100 Nasal Cannula 3 12/11/24 08:00 12/11/24 08:00 12/11/24 08:00 12/11/24 08:00 12/11/24 08:00 12/11/24 13:00 12/11/24 13:00 Laboratory Results - last 24 hr 12/10/24 15:04: WBC 8.1, RBC 4.85, Hgb 15.0, Hct 45.7, MCV 94.2 H, MCH 30.9, MCHC 32.8, RDW 14.6, Plt Count 291, MPV 9.8, Neut % (Auto) 56.2, Lymph % (Auto) 22.6, [place] % (Auto) 12.1 H, Eos % (Auto) 7.0, Baso % (Auto) 1.1, Neut # (Auto) 4.6, Lymph # (Auto) 1.8, [place] # (Auto) 1.0, Eos # (Auto) 0.6 H, Baso # (Auto) 0.1, PT 11.1, INR 0.99, APTT 30.5, Sodium 141, Potassium 4.1, Chloride 94 L, Carbon Dioxide 39 H, Anion Gap 12.1, BUN 27 H, Creatinine 1.80 H, Estimated GFR 38 L, Est GFR ( Amer) 45 L, Glucose 116 H, Calcium 9.3, Magnesium 2.3, Total Bilirubin 0.6, AST 33, ALT 14, Alkaline Phosphatase 70, Total Creatine Kinase 57, Troponin I < 0.01, Total Protein 8.0, Albumin 4.3, Globulin 3.7 H, Albumin/Globulin Ratio 1.2, Lipase 31, Procalcitonin 0.088, TSH 1.76, Thyroxine (T4) 9.1, HCV Ab JASMYNE w/Rflx PCR Qn Negative, HIV Ag/Ab Combo Qual Negative 12/10/24 15:54: VBG pH 7.42 H, VBG pCO2 51.2 H, VBG pO2 51.2 H, VBG HCO3 32.5 H, VBG Total CO2 34.0 H, VBG O2 Saturation 85.6 H, VBG Base Excess 8.0 H, VBG Lactic Acid 2.0 12/10/24 16:40: Urine Color Yellow, Urine Appearance Clear, Urine pH 7.5, Ur Specific [place] 1.010, Urine Protein Negative, Urine Glucose (UA) Negative, Urine Ketones Negative, Urine Blood Trace-l, Urine Nitrate Negative, Urine Bilirubin Negative, Urine Urobilinogen 0.2, Ur Leukocyte Esterase Negative, Urine RBC None, Urine WBC 3-5, Ur Squamous Epith Cells Occasional, Ur Transition Epith Cell 10-20, Ur Renal Epithelial Cell 3-5, Amorphous Sediment 3+, Urine Bacteria Trace, Hyaline Casts 3-5 12/10/24 18:29: Troponin I < 0.01 12/10/24 21:15: Troponin I < 0.01 12/11/24 04:09: POC Glucose 94 12/11/24 04:30: WBC 7.2, RBC 4.11 L, Hgb 12.8 L D, Hct 39.2 L, MCV 95.4 H, MCH 31.1, MCHC 32.7, RDW 14.8, Plt Count 228, MPV 9.7, Neut % (Auto) 49.6, Lymph % (Auto) 29.1, [place] % (Auto) 13.3 H, Eos % (Auto) 6.4, Baso % (Auto) 1.0, Neut # (Auto) 3.6, Lymph # (Auto) 2.1, [place] # (Auto) 1.0, Eos # (Auto) 0.5 H, Baso # (Auto) 0.1, Sodium 142, Potassium 3.8, Chloride 99, Carbon Dioxide 36 H, Anion Gap 10.8, BUN 22 H, Creatinine 1.40 H D, Estimated Creat Clear 60, Estimated GFR 50 L, Est GFR ( Amer) 61 D, Glucose 80 D, Calcium 8.9, Magnesium 2.0 D, Iron 113, TIBC 297, Iron Saturation 38.66666, Ferritin 220, Total Bilirubin 0.4, AST 20 D, ALT 12, Alkaline Phosphatase 75, Ammonia 21, Total Protein 6.3, Albumin 3.5 D, Globulin 2.8, Albumin/Globulin Ratio 1.3, Triglycerides 116, Cholesterol 180, LDL Cholesterol Direct 102.67, VLDL Cholesterol 23, HDL Cholesterol 45, Cholesterol/HDL Ratio 4.0 H, Vitamin B12 444, Folate 6.94 I & O for Last 24 hours: Intake & Output 12/08/24 12/09/24 12/10/24 12/11/24 23:59 23:59 23:59 23:59 Intake Total 1505 / 1505 Output Total 200 / 200 Balance -200 / -200 1505 / 1505 Weight 89.358 kg 84.504 kg Results Data Completed and Pending Labs on day of discharge: Labs from last 24 hours 12/11/24 12/11/24 12/10/24 04:30 04:09 21:15 WBC 7.2 RBC 4.11 L Hgb 12.8 L D Hct 39.2 L MCV 95.4 H MCH 31.1 MCHC 32.7 RDW 14.8 Plt Count 228 MPV 9.7 Neut % (Auto) 49.6 Lymph % (Auto) 29.1 [place] % (Auto) 13.3 H Eos % (Auto) 6.4 Baso % (Auto) 1.0 Neut # (Auto) 3.6 Lymph # (Auto) 2.1 [place] # (Auto) 1.0 Eos # (Auto) 0.5 H Baso # (Auto) 0.1 PT INR APTT VBG pH VBG pCO2 VBG pO2 VBG HCO3 VBG Total CO2 VBG O2 Saturation VBG Base Excess VBG Lactic Acid Sodium 142 Potassium 3.8 Chloride 99 Carbon Dioxide 36 H Anion Gap 10.8 BUN 22 H Creatinine 1.40 H D Estimated Creat Clear 60 Estimated GFR 50 L Est GFR ( Amer) 61 D Glucose 80 D POC Glucose 94 Calcium 8.9 Magnesium 2.0 D Iron 113 TIBC 297 Iron Saturation 38.72139 Ferritin 220 Total Bilirubin 0.4 AST 20 D ALT 12 Alkaline Phosphatase 75 Ammonia 21 Total Creatine Kinase Troponin I < 0.01 Total Protein 6.3 Albumin 3.5 D Globulin 2.8 Albumin/Globulin Ratio 1.3 Triglycerides 116 Cholesterol 180 LDL Cholesterol Direct 102.67 VLDL Cholesterol 23 HDL Cholesterol 45 Cholesterol/HDL Ratio 4.0 H Lipase Vitamin B12 444 Folate 6.94 Procalcitonin TSH Thyroxine (T4) Urine Color Urine Appearance Urine pH Ur Specific [place] Urine Protein Urine Glucose (UA) Urine Ketones Urine Blood Urine Nitrate Urine Bilirubin Urine Urobilinogen Ur Leukocyte Esterase Urine RBC Urine WBC Ur Squamous Epith Cells Ur Transition Epith Cell Ur Renal Epithelial Cell Amorphous Sediment Urine Bacteria Hyaline Casts HCV Ab JASMYNE w/Rflx PCR Qn HIV Ag/Ab Combo Qual 12/10/24 12/10/24 12/10/24 18:29 16:40 15:54 WBC RBC Hgb Hct MCV MCH MCHC RDW Plt Count MPV Neut % (Auto) Lymph % (Auto) [place] % (Auto) Eos % (Auto) Baso % (Auto) Neut # (Auto) Lymph # (Auto) [place] # (Auto) Eos # (Auto) Baso # (Auto) PT INR APTT VBG pH 7.42 H VBG pCO2 51.2 H VBG pO2 51.2 H VBG HCO3 32.5 H VBG Total CO2 34.0 H VBG O2 Saturation 85.6 H VBG Base Excess 8.0 H VBG Lactic Acid 2.0 Sodium Potassium Chloride Carbon Dioxide Anion Gap BUN Creatinine Estimated Creat Clear Estimated GFR Est GFR ( Amer) Glucose POC Glucose Calcium Magnesium Iron TIBC Iron Saturation Ferritin Total Bilirubin AST ALT Alkaline Phosphatase Ammonia Total Creatine Kinase Troponin I < 0.01 Total Protein Albumin Globulin Albumin/Globulin Ratio Triglycerides Cholesterol LDL Cholesterol Direct VLDL Cholesterol HDL Cholesterol Cholesterol/HDL Ratio Lipase Vitamin B12 Folate Procalcitonin TSH Thyroxine (T4) Urine Color Yellow Urine Appearance Clear Urine pH 7.5 Ur Specific [place] 1.010 Urine Protein Negative Urine Glucose (UA) Negative Urine Ketones Negative Urine Blood Trace-l Urine Nitrate Negative Urine Bilirubin Negative Urine Urobilinogen 0.2 Ur Leukocyte Esterase Negative Urine RBC None Urine WBC 3-5 Ur Squamous Epith Cells Occasional Ur Transition Epith Cell 10-20 Ur Renal Epithelial Cell 3-5 Amorphous Sediment 3+ Urine Bacteria Trace Hyaline Casts 3-5 HCV Ab JASMYNE w/Rflx PCR Qn HIV Ag/Ab Combo Qual 12/10/24 15:04 WBC 8.1 RBC 4.85 Hgb 15.0 Hct 45.7 MCV 94.2 H MCH 30.9 MCHC 32.8 RDW 14.6 Plt Count 291 MPV 9.8 Neut % (Auto) 56.2 Lymph % (Auto) 22.6 [place] % (Auto) 12.1 H Eos % (Auto) 7.0 Baso % (Auto) 1.1 Neut # (Auto) 4.6 Lymph # (Auto) 1.8 [place] # (Auto) 1.0 Eos # (Auto) 0.6 H Baso # (Auto) 0.1 PT 11.1 INR 0.99 APTT 30.5 VBG pH VBG pCO2 VBG pO2 VBG HCO3 VBG Total CO2 VBG O2 Saturation VBG Base Excess VBG Lactic Acid Sodium 141 Potassium 4.1 Chloride 94 L Carbon Dioxide 39 H Anion Gap 12.1 BUN 27 H Creatinine 1.80 H Estimated Creat Clear Estimated GFR 38 L Est GFR ( Amer) 45 L Glucose 116 H POC Glucose Calcium 9.3 Magnesium 2.3 Iron TIBC Iron Saturation Ferritin Total Bilirubin 0.6 AST 33 ALT 14 Alkaline Phosphatase 70 Ammonia Total Creatine Kinase 57 Troponin I < 0.01 Total Protein 8.0 Albumin 4.3 Globulin 3.7 H Albumin/Globulin Ratio 1.2 Triglycerides Cholesterol LDL Cholesterol Direct VLDL Cholesterol HDL Cholesterol Cholesterol/HDL Ratio Lipase 31 Vitamin B12 Folate Procalcitonin 0.088 TSH 1.76 Thyroxine (T4) 9.1 Urine Color Urine Appearance Urine pH Ur Specific [place] Urine Protein Urine Glucose (UA) Urine Ketones Urine Blood Urine Nitrate Urine Bilirubin Urine Urobilinogen Ur Leukocyte Esterase Urine RBC Urine WBC Ur Squamous Epith Cells Ur Transition Epith Cell Ur Renal Epithelial Cell Amorphous Sediment Urine Bacteria Hyaline Casts HCV Ab JASMYNE w/Rflx PCR Qn Negative HIV Ag/Ab Combo Qual Negative Meds Home Medications and Allergies Home Medications ?Medication ?Instructions ?Recorded ?Confirmed ?Type albuterol sulfate 90 mcg/actuation 2 puff inhalation Q6HP PRN 06/25/24 12/10/24 History aerosol inhaler Shortness Of Breath Or Wheezing metoprolol succinate 25 mg 25 mg PO DAILY 06/25/24 12/10/24 History tablet,extended release 24 hr polyethylene glycol 3350 17 17 g PO DAILY 06/25/24 12/10/24 History gram/dose oral powder acetaminophen 500 mg tablet 1,000 mg PO Q6HP PRN Fever Or Pain 10/26/24 12/10/24 History amantadine HCl 100 mg tablet 100 mg PO BID 10/26/24 12/10/24 History lactulose 10 gram/15 mL oral 30 ml PO DAILYP PRN Constipation 10/26/24 12/10/24 History solution potassium chloride 10 mEq 10 meq PO DAILY 10/26/24 12/10/24 History tablet,extended release(part/cryst) fluticasone fur. 200 mcg-umeclid 1 inh inhalation DAILY 30 days #60 10/28/24 12/10/24 Rx 62.5 mcg-vilant 25 mcg ea inhalat.powder (Trelegy Ellipta) buspirone 5 mg tablet 5 mg PO TID 11/04/24 12/10/24 History fluticasone propionate 50 1 spray intranasal DAILY 11/09/24 12/10/24 History mcg/actuation nasal spray,suspension famotidine 40 mg tablet 40 mg PO HS 11/25/24 12/10/24 History loratadine 10 mg tablet 10 mg PO DAILY 11/25/24 12/10/24 History magnesium oxide 400 mg PO DAILY 11/25/24 12/10/24 History aluminum hydrox-magnesium carb 95 30 ml PO DAILYP PRN Acid Reflux 12/10/24 12/11/24 History mg-358 mg/15 mL oral suspension ipratropium 0.5 mg-albuterol 3 mg 3 ml inhalation Q6 PRN SOA 12/10/24 12/10/24 History (2.5 mg base)/3 mL nebulization soln divalproex 250 mg tablet,extended 250 mg PO BID 30 days #60 tabs 12/11/24 Rx release 24 hr (Depakote ER) folic acid 1 mg tablet 1 mg PO DAILY 30 days #30 tabs 12/11/24 Rx furosemide 20 mg tablet 20 mg PO DAILY 12/11/24 12/11/24 History olanzapine 5 mg tablet (Zyprexa) 5 mg PO HS #30 tabs 12/11/24 Rx oxcarbazepine 300 mg tablet 150 mg (1/2 x 300 mg) PO BID 30 12/11/24 12/10/24 Rx days #0 tabs New Prescriptions to Start Prescriptions: divalproex [Depakote ER] Conrad Lozada folic acid Conrad Lozada olanzapine [Zyprexa] Conrad Lozada Allergies Allergy/AdvReac Type Severity Reaction Status Date / Time No Known Allergies Allergy Verified 11/25/24 13:48 Discharge Plan Disposition Patient Disposition: [facility]mediate [facility] Fac Condition: Fair Discharge Order Discharge Orders: Discharge Order (Routine); Ordered 12/11/24 Ordered By: Conrad Lozada Follow up Plan Follow up with: Claudia Argueta APRN [Nurse Practitioner] - Enter time for follow up Prescriptions/Medication Reconciliation: New divalproex [Depakote ER] 250 mg tablet extended release 24 hr 250 mg PO BID 30 Days Qty: 60 0RF olanzapine [Zyprexa] 5 mg tablet 5 mg PO HS Qty: 30 0RF folic acid 1 mg Tablet 1 mg PO DAILY 30 Days Qty: 30 0RF Continued buspirone 5 mg tablet 5 mg PO TID famotidine 40 mg tablet 40 mg PO HS loratadine 10 mg tablet 10 mg PO DAILY magnesium oxide 400 mg magnesium tablet 400 mg PO DAILY fluticasone propionate 50 mcg/actuation spray,suspension 1 spray intranasal DAILY metoprolol succinate 25 mg tablet extended release 24 hr 25 mg PO DAILY polyethylene glycol 3350 17 gram/dose powder 17 g PO DAILY albuterol sulfate 90 mcg/actuation HFA aerosol inhaler 2 puff INHALATION Q6HP PRN (Reason: Shortness Of Breath Or Wheezing) amantadine HCl 100 mg tablet 100 mg PO BID acetaminophen 500 mg Tablet 1,000 mg PO Q6HP PRN (Reason: Fever Or Pain) potassium chloride 10 mEq tablet,ER particles/crystals 10 meq PO DAILY lactulose 10 gram/15 mL solution 30 ml PO DAILYP PRN (Reason: Constipation) Trelegy Ellipta 200-62.5-25 mcg blister with device 1 inh INHALATION DAILY 30 Days Qty: 60 0RF aluminum hydrox-magnesium carb 95-358 mg/15 mL Suspension 30 ml PO DAILYP PRN (Reason: Acid Reflux) ipratropium-albuterol 0.5 mg-3 mg(2.5 mg base)/3 mL solution for nebulization 3 ml INHALATION Q6 PRN (Reason: SOA) furosemide 20 mg tablet 20 mg PO DAILY Changed oxcarbazepine 300 mg tablet 150 mg PO BID 30 Days Qty: 0 0RF Discontinued divalproex 500 mg tablet,delayed release (DR/EC) 500 mg PO BID olanzapine 15 mg tablet 15 mg PO HS Problem Reconciliation Problems Reviewed?: Yes Patient Discharge Instructions Patient Instructions: Tooth Abscess, Acute Kidney Injury, Metabolic Encephalopathy Print Language: Maldivian Providers Primary Care Provider: Provider,Referral Admit Provider: Conrad Lozada Attending Provider: Conrad Lozada
== END 2024-12-11 15:39 ==
LOC: ER 17:45 → 2ND 18:49
PROVIDERS: Emergency Medicine; Nurse Practitioner Family; Admitting Provider Student in an Organized Health Care Education/Training Program; Emergency Provider Emergency Medicine; Visit Provider Student in an Organized Health Care Education/Training Program
DX: N17.9 Acute kidney failure, unspecified (principal); J44.9 Chronic obstructive pulmonary disease, unspecified; R29.6 Repeated falls; Z77.098 Contact with and (suspected) exposure to other hazardous, chiefly nonmedicinal, chemicals; Z91.85 Personal history of military service; K12.2 Cellulitis and abscess of mouth; F60.1 Schizoid personality disorder; R44.1 Visual hallucinations; R25.1 Tremor, unspecified; K56.41 Fecal impaction; K02.9 Dental caries, unspecified; C7A.090 Malignant carcinoid tumor of the bronchus and lung; E86.0 Dehydration; F31.9 Bipolar disorder, unspecified; R06.02 Shortness of breath; N32.81 Overactive bladder; Z87.891 Personal history of nicotine dependence
CPT/HCPCS: 70450; 70496; 70498; 71045; 71260; 74177; 80053; 80061; 80165; 81001; 82140; 82550; 82607; 82728; 82746; 82803; 82962; 83540; 83550; 83690; 83735; 84145; 84436; 84443; 84484; 85025; 85610; 85730; 86803; 87040; 87389; 93005; 94640; 97163; 99285; G0378; J0295; J1630; J1650; J7030; J7120; Q9967